=== PATIENT | male | born 1960 | race Caucasian/White ===

== ENCOUNTER → 2019-09-06 08:10 | Outpatient (BNVA) | payer MEDICAID, SELFPAY | PROVIDERS: Family Provider Nurse Practitioner Family; Visit Provider Nurse Practitioner | DX: F33.2 Major depressive disorder, recurrent severe without psychotic features (principal); F17.210 Nicotine dependence, cigarettes, uncomplicated; F12.20 Cannabis dependence, uncomplicated; F43.12 Post-traumatic stress disorder, chronic | CPT/HCPCS: 99213 ==

== ENCOUNTER → 2019-11-27 08:32 | Outpatient (BNVA) | payer MEDICAID, SELFPAY | PROVIDERS: Family Provider Nurse Practitioner Family; Visit Provider Nurse Practitioner | DX: F43.12 Post-traumatic stress disorder, chronic (principal); F33.2 Major depressive disorder, recurrent severe without psychotic features; F12.20 Cannabis dependence, uncomplicated; F17.210 Nicotine dependence, cigarettes, uncomplicated | CPT/HCPCS: 99213 ==

== ENCOUNTER → 2020-02-26 08:38 | Outpatient (BNVA) | payer MEDICAID, SELFPAY | PROVIDERS: Family Provider Nurse Practitioner Family; Visit Provider Nurse Practitioner | DX: F33.2 Major depressive disorder, recurrent severe without psychotic features (principal); F12.20 Cannabis dependence, uncomplicated; F43.12 Post-traumatic stress disorder, chronic; F17.210 Nicotine dependence, cigarettes, uncomplicated | CPT/HCPCS: 99214 ==

== ENCOUNTER 2020-03-04 13:10 | Outpatient (CLI) | payer MEDICAID, SELFPAY ==
--- NOTE | 2020-03-04 13:17 | XRR_ITS ---
PROCEDURE INFORMATION: Exam: XR Cervical Spine, 2 or 3 Views Exam date and time: 03/04/2020 1:35 PM Age: 59 years old Clinical indication: Cervicalgia and neck pain; Additional info: Chronic neck pain/cervicalgia TECHNIQUE: Imaging protocol: XR of the cervical spine, 2 or 3 views. COMPARISON: [place] [id number] 07/04/2018 1:14 PM FINDINGS: Vertebrae: No acute fracture. There is an anterior fusion plate from C4 through C7 as well as posterior fusion rods and pedicle screws. No evidence for hardware failure. Soft tissues: Unremarkable. XR/XR cervical spine 3V* [id number] IMPRESSION: There are no acute concerning abnormalities.
== END 2020-03-04 13:11 | disposition home or self-care (01) ==
LOC: RAD 13:13
PROVIDERS: PCP Nurse Practitioner Family; Visit Provider Nurse Practitioner Family
DX: M54.2 Cervicalgia (principal); G89.29 Other chronic pain
CPT/HCPCS: 72040

== ENCOUNTER 2020-03-13 22:47 | Emergency (ER) | payer MEDICAID, SELFPAY ==
[2020-03-13 22:49] VITALS: BP 152/99; PULSE 104; RESP 19; TEMP 36.7; O2SAT 96; BMI 27.1
--- NOTE | 2020-03-13 22:58 | XR_ITS ---
WS: [id number] EXAM: AP CHEST: PORTABLE UPRIGHT DATE OF EXAM: 03/13/2020, 2318 hours COMPARISON: Chest x-ray from 12/19/2015 HISTORY: Patient is 59 years old with cough and shortness of breath. FINDINGS: The cardiac silhouette is normal in size. The mediastinal contours are grossly abnormal. There is interval development of a soft tissue process in the left hilum. Most likely this represents a mass w ith underlying postobstructive pneumonitis. CT of the chest with IV contrast recommended.. The pulm onary vascularity is normal. Right lung is clear. Peripheral left lung is also clear. There is no e ffusion or pneumothorax. No acute bony abnormality is seen. Old postop fusion changes in the cervic al spine noted. XR/XR chest 1V portable [id number] IMPRESSION: Interval development of an abnormality involving the left hilum. Highly suspect underlying neoplasm with possible postobstructive pneumonia. CT of the chest w ith IV contrast recommended.
--- NOTE | 2020-03-13 22:58 | ECG_ITS ---
[facility] Test Date: 2020-03-13 Pat Name: Saman Orozco Department: Room: Gender: Male Prep Person: : 1960 Requested By: Radu Pineda Order Number: [id number] Terry MD: Marciano Aaron M.D. Measurements Intervals Watkins Rate: 96 P: 78 NV: 155 QRS: -54 QRSD: 84 T: 79 QT: 343 QTc: 434 Interpretive Statements SINUS RHYTHM POSSIBLE RIGHT ATRIAL ENLARGEMENT [0.25mV P WAVE] LEFT ANTERIOR FASCICULAR BLOCK [QRS AXIS <= -45, QR IN I, RS IN II] NONSPECIFIC T-WAVE ABNORMALITY Compared to ECG 12/19/2015 03:35:05 Left anterior fascicular block now present T-wave abnormality still present Electronically Signed On 03-15-2020 12:47:55 CDT by Marciano Aaron M.D. [id number] f
--- NOTE | 2020-03-13 22:59 | ED_ITS ---
HPI - SOB/Dyspnea General: Chief Complaint: Shortness of Breath/Dyspnea Stated Complaint: spitting up blood Time Seen by Provider: 03/13/20 22:57 History of Present Illness: HPI Narrative: Patient is a 59-year-old male who comes to the ED with hemoptysis and SOB. Patient has a past medical history of major depressive disorder, PTSD and hypertension. Patient is 1 pack/day tobacco smoker. Symptoms started today. Patient says he has a chronic cough from sm oking and that has remained unchanged. Today cough became productive and he noticed some blood in his sputum. Patient says he does have some shortness of breath that started today as well. He denies any chest pain, heart palpitations, fever, nausea/vomiting, bladder or bowel symptoms. Patient states he was told one time approximately 5 years ago that the chest x-ray showed potential pneumonia or cancer in his lungs. He was scheduled to do a biopsy and when they did imaging again before the biopsy mass in the lungs was gone. Patient denies any recent vomiting or trauma in the oral region to cause any blood in his sputum. Patient does have some chronic neck pain and states that he has had 2 surgeries on his neck in the last couple years. The coughing is aggravated his neck pain. He rates his neck pain an 8 out of 10. Associated symptoms: Deny abdominal pain, chest pain, fever(s), nausea, orthopnea, palpitations or vomiting Review of Systems Const: Denies: fever(s), chills or fatigue Eyes: Denies: change in vision or eye discomfort ENMT: Denies: throat pain, odynophagia, nasal discharge or nasal congestion Card: Denies: chest pain, palpitations, edema, swelling of feet/ankles, dyspnea on exertion or orthopnea Resp: Reports: dyspnea and productive cough (White sputum with red blood mixed.); Denies: non-productive cough GI: Denies: abdominal pain, nausea, vomiting, diarrhea, constipation or hematochezia : Denies: flank pain, difficulty urinating, dysuria or hematuria Musc: Denies: neck pain, back pain or extremity swelling Skin/Breast: Denies: rash or new lesions Neuro: Denies: headache(s), numbness in extremities or weakness in extremities [facility] ED PFSH: Medical History Cannabis dependence, uncomplicated Major depressive disorder, recurrent severe without psychotic features Nicotine dependence, cigarettes, uncomplicated Post-traumatic stress disorder, chronic Family History Father Hypertension Diabetes Mother Cancer Social History Smoking and tobacco status: current every day smoker cigarettes Packs smoked per day: 1 Smoking risk assessment/counseling performed?: Yes Tobacco counseling given: counseling >3 minutes Current gender identity: Male Physical Exam Const: COMMON NORMALS: no acute distress, patient oriented x3 and alert GENERAL APPEARANCE: cooperative HENMT: COMMON NORMALS: normocephalic HEAD & SCALP: normocephalic MOUTH: Normal oral and palatal mucosa present THROAT: posterior oropharynx normal and uvula midline Eye: COMMON NORMALS: Equal, round and reactive pupils present PUPIL: Yes Equal, round and reactive pupils present Neck/C-Spine: COMMON NORMALS: supple GENERAL: Yes normal visual inspection Resp: COMMON NORMALS: normal respiratory effort, No retractions and No use of accessory muscles EFFORT & INSPECTION: Yes able to speak in complete sente nces, No tachypneic, No labored and Yes Actively coughing productive AUSCULTATION: diminished lung sounds bilateral in the lower lung gomez Cardio: COMMON NORMALS: regular rate, regular rhythm, S1 normal heart sound present, S2 normal heart sound present, No gallops present (Cardio), No clicks present (Cardio), No murmurs present (Cardio) and Peripheral pulses 2+ throughout RATE: regular rate RHYTHM: regular rhythm HEART SOUNDS: S1 normal heart sound present and S2 normal heart sound present PERIPHERAL PULSES: Peripheral pulses 2+ throughout GI: COMMON NORMALS: Normal to inspection, nondistended, normoactive bowel sounds present, Soft to palpation, non-tender and no masses PALPATION: Yes Soft to palpation : COMMON NORMALS: Yes no CVA tenderness BLADDER/KIDNEY EXAM: Yes no CVA tenderness Back/Pelvis: COMMON NORMALS: no CVA tenderness Extremity: COMMON NORMALS: normal to inspection and no pedal edema Neuro: COMMON NORMALS: patient oriented x3 and moves all extremities SENSORIUM/ORIENTATION: Yes alert Skin: COMMON NORMALS: no rashes or lesions noted GENERAL SKIN EXAM: no rashes or lesions noted and dry skin Course Vital Signs: Vital signs: Vital Signs Temperature 98.0 F 03/13/20 22:49 Pulse Rate 95 03/14/20 01:45 Respiratory Rate 16 03/14/20 01:45 Blood Pressure 128/91 03/14/20 01:45 Pulse Oximetry 97 03/14/20 01:45 MDM - SOB/Dyspnea MDM Narrative: Medical decision making narrative: Patient is a 59-year-old male who comes to the ED with hemoptysis. Patient denies any chest pain or heart palpitations. EKG showed normal sinus rhythm with no ST segment elevation or depression seen. Troponin negative. White blood cell count 12.2 and the rest of CBC and CMP was unremarkable. D-dimer 1.63 chest x-ray showed a mass on the left midlung region. CTA of chest showed left middle lung mass likely primary pulmonary malignancy. While here in the ED patient is showing no signs of any respiratory distress. BP 128/91, pulse 95, respirations 16, temperature 98 ?F, O2 saturation 97% on room air. Patient was told about CT lung findings of cancer on the left lung. I placed an order with case management for patient to be referred to oncology for lung cancer. Patient was also recommended to follow-up with his primary care doctor in the next 3 to 5 days to discuss lung cancer findings. Return to ED precautions were given. Patient understood and agreed with plan. Lab Data: Attestation: I reviewed the patient's lab results. Labs: Lab Results 03/13/20 03/13/20 03/13/20 Range/Units 23:17 23:17 23:17 WBC 12.2 H (4.0-10.0) 10^3/ uL RBC 4.66 (4.1-5.3) 10^6/u L Hgb 13.1 (11.7-16.6) g/dL Hct 42.9 (42.0-52.0) % MCV 92.1 (80-94) fL MCH 28.1 (28.0-34.0) pg MCHC 30.5 (30.0-36.0) g/dL RDW 12.5 (12.1-15.1) % Plt Count 347 (130-400) 10^3/c mm MPV 10.7 H (7.4-10.4) fL Neut % (Auto) 75.5 % Lymph % (Auto) 15.8 % [place] % (Auto) 5.9 % Eos % (Auto) 1.9 % Baso % (Auto) 0.7 % Neut # (Auto) 9.23 H (1.8-7.7) 10^3/u L Lymph # (Auto) 1.9 (0.8-4.8) 10^3/u L [place] # (Auto) 0.7 (0.2-0.9) 10^3/u L Eos # (Auto) 0.2 (0.0-0.8) 10^3/u L Baso # (Auto) 0.1 (0.0-0.1) 10^3/u L Nucleated RBC % (a uto) 0 % Nucleated RBCs # 0.0 /100WBC D-Dimer (0-0.59) ug/mIFE U Sodium 136 (136-145) mmol/L Potassium 4.4 (3.5-5.1) mmol/L Chloride 99 (98-107) mmol/L Carbon Dioxide 28 (22-29) mmol/L Anion Gap 13.4 (5-19) BUN 10 (8-23) mg/dL Creatinine 1.0 (0.7-1.2) mg/dL GFR Calculation 76.0 L (90-130) mL/min Glucose 109 (65-115) mg/dL Calculated Osmolal ity 279 L (285-295) mOsm/k g Calcium 9.3 (8.5-10.5) mg/dL Total Bilirubin 0.2 (0.15-1.2) mg/dL AST 16 (0-40) U/L ALT 9 (0-41) U/L Alkaline Phosphata se 127 (40-130) IU/L Troponin T Baselin e 12 (0-15) ng/L Troponin T 120 Min [place] (0-15) ng/L Delta Troponin T (0-10) ABS# Total Protein 7.5 (6.6-8.7) g/dL Albumin 4.3 (3.5-5.2) g/dL Globulin 3.2 (1.3-4.6) g/dL 03/13/20 03/14/20 Range/Units 23:17 01:04 WBC (4.0-10.0) 10^3/ uL RBC (4.1-5.3) 10^6/u L Hgb (11.7-16.6) g/dL Hct (42.0-52.0) % MCV (80-94) fL MCH (28.0-34.0) pg MCHC (30.0-36.0) g/dL RDW (12.1-15.1) % Plt Count (130-400) 10^3/c mm MPV (7.4-10.4) fL Neut % (Auto) % Lymph % (Auto) % [place] % (Auto) % Eos % (Auto) % Baso % (Auto) % Neut # (Auto) (1.8-7.7) 10^3/u L Lymph # (Auto) (0.8-4.8) 10^3/u L [place] # (Auto) (0.2-0.9) 10^3/u L Eos # (Auto) (0.0-0.8) 10^3/u L Baso # (Auto) (0.0-0.1) 10^3/u L Nucleated RBC % (a uto) % Nucleated RBCs # /100WBC D-Dimer 1.63 H (0-0.59) ug/mIFE U Sodium (136-145) mmol/L Potassium (3.5-5.1) mmol/L Chloride (98-107) mmol/L Carbon Dioxide (22-29) mmol/L Anion Gap (5-19) BUN (8-23) mg/dL Creatinine (0.7-1.2) mg/dL GFR Calculation (90-130) mL/min Glucose (65-115) mg/dL Calculated Osmolal ity (285-295) mOsm/k g Calcium (8.5-10.5) mg/dL Total Bilirubin (0.15-1.2) mg/dL AST (0-40) U/L ALT (0-41) U/L Alkaline Phosphata se (40-130) IU/L Troponin T Baselin e (0-15) ng/L Troponin T 120 Min [place] 12.80 (0-15) ng/L Delta Troponin T 0.80 (0-10) ABS# Total Protein (6.6-8.7) g/dL Albumin (3.5-5.2) g/dL Globulin (1.3-4.6) g/dL Imaging Data^: CXR: Attestation: I personally reviewed and interpreted this imaging study as follows: My impression: Chest x-ray shows possible infiltrate or mass in the left mid lung. Pending final radiology report. CT Chest: Attestation: I personally reviewed and interpreted this imaging study as follows: Radiologist's impression: [address] [address] [address] Scan Report Signed Patient: Saman Orozco Unit #: [id number] : 1960 Age/Sex: 59 / M ADM Date: 03/13/20 Loc: ER Room/Bed: Attending Dr: Ordering Provider/Ordering MD: Jeimy Freire MD Date of Service: 03/13/20 Procedure(s): CT angio chest PE protcl [id number] Accession Number(s): [id number] Report Number: [id number] PROCEDURE INFORMATION: Exam: CT Angiography Chest With Contrast Exam date and time: 03/13/2020 11:52 PM Age: 59 years old Clinical indication: Shortness of breath and other: Coughing up blood; Additional info: SOB TECHNIQUE: Imaging protocol: Computed tomographic angiography of the chest with intravenous contrast. 3D rendering (Not supervised by radiologist): MIP and/or 3D reconstructed images were created by the technologist. Radiation optimization: All CT scans at this facility use at least one of these dose optimization techniques: automated exposure control; mA and/or kV adjustment per patient size (includes targeted exams where dose is matched to clinical indication); or iterative reconstruction. Contrast material: OMNI 350; Contrast volume: 95 ml; Contrast route: INTRAVENOUS (IV); COMPARISON: CT chest w con* [id number] 02/08/2015 3:26 PM RADIATION DOSE METRICS: Total DLP (mGy-cm): 658.9 FINDINGS: Pulmonary arteries: See Lungs finding. Aorta: Unremarkable. No aortic aneurysm. No aortic dissection. Lungs: There is a heterogeneous soft tissue attenuation irregular mass present medially within the left hemithorax that measures 5.9 cm transverse dimension by 12.1 cm AP dimension by 10.3 cm craniocaudal dimension compatible with a primary pulmonary malignancy. The mass is contiguous with the superior and middle mediastinal pleura and extends centrally surrounding and attenuating the left main pulmonary artery and branches of the left upper lobe pulmonary artery. The mass surrounds the proximal extent of the left lower lobe pulmonary artery as well. The mass attenuates and obstructs branches of the left upper lobe bronchus. The mass extends medially into the anterior mediastinum as well. There is some bronchial wall thickening seen within the lingula and some patchy opacities are seen within the lingula that may represent atelectasis although tumor extension cannot be excluded. There are small pulmonary nodularity seen within the left upper lobe as well, the largest measuring to 7.7 mm. Peripheral metastatic lesions cannot be excluded. Pleural space: Unremarkable. No pneumothorax. No pleural effusion. Heart: Unremarkable. No cardiomegaly. No pericardial effusion. Lymph nodes: Mildly prominent subcarinal mediastinal lymph nodes and right hilar lymph nodes are seen. Kidneys and ureters: There is a 1.9 x 2.5 cm hypoattenuation cystic lesions seen on the lower pole of the left kidney posteriorly compatible with a simple cyst. Bones/joints: Unremarkable. No acute fracture. Soft tissues: Unremarkable. CT/CT angio chest PE protcl [id number] IMPRESSION: 1. Large left upper lobe pulmonary mass extending into the anterior and superior mediastinum obstructing the left upper lobe bronchi and surrounding a attenuating the left main pulmonary artery and left upper lobe branches. This is a primary pulmonary malignancy less proven otherwise. 2. There are small pulmonary nodularities present in the left upper lobe, the largest measuring 7.7 mm. These are worrisome for metastatic lesions. 3. There are mildly prominent subcarinal and right hilar lymph nodes present that are below CT criteria for lymphadenopathy however. 4. Probable lingular atelectasis although tumor extension cannot be excluded. 5. Simple appearing left renal cyst measuring up to 2.5 cm. No further workup needed. COMMENTS: Consistent with the [employer]'s Incidental Findings Committee white paper (J Am Jhony Radiol 2018): Any incidental renal lesion less than 1.0 cm or classified as too small to characterize, or any incidental cystic renal lesion characterized as simple-appearing, is likely benign. No follow-up imaging is recommended for these lesions per consensus recommendations based on imaging criteria. Radiation Dose CTDIVOL = (mGy): DLP = 658.9 (mGy-cm) Dictated By: Tim Stephens MD Signed By: Tim tSephens MD Signed Date/Time: 03/14/20120 DD/ 9 EKG Data^: EKG 1: Attestation: I personally reviewed and interpreted this EKG as follows: EKG Interpretation Date: 03/13/20 Interpretation: Sinus rhythm, 96 bpm, no ST segment elevation or depression seen. Discharge Plan Discharge Patient Disposition: Home Clinical Impression: Lung cancer Qualifiers: Laterality: left Lung location: overlapping sites Qualified Code(s): C34.82 - Malignant neoplasm of overlapping sites of left bronchus and lung Condition: Stable Prescriptions: No Action lisinopril 10 mg tablet 10 mg PO DAILY RF: 0 aripiprazole [Abilify] 30 mg tablet 30 mg PO DAILY Qty: 30 RF: 2 benztropine 1 mg tablet 1 mg PO BID Qty: 60 RF: 2 paroxetine HCl [Paxil] 10 mg tablet 10 mg PO .HS Qty: 30 RF: 1 Discharge Orders: Discharge Order (Routine); Ordered 03/14/20 Ordered By: Radu Pineda Referrals: Dodie Hilton FNP [Primary Care Provider] - Discharge Diet: Regular Discharge Activity: Increase activity as tolerated Patient Instructions: Lung Cancer (ED), Acute Hemoptysis (ED) Activity Restrictions/Additional Instructions: Follow-up with medical provider as directed. Contact your primary care physician and set up an appointment with them in the next 3 to 5 days for reevaluation. Case management should be contacting you in the next several days to set up an appointment with oncology. Continue taking all home medications as prescribed. Return to the ER or your medical provider if condition worsens. Please read and understand discharge instructions. If any questions, please ask. Coding Level of Care Code ED Rehab Physician for Chg Fwd Exam Comprehensive
[2020-03-13 23:04] VITALS: BP 167/109; PULSE 98; RESP 18; O2SAT 95
[2020-03-13] MEDS: HYDROcodone-acetaminophen 7.5-325 mg Tablet 1 TAB PO (23:28)
--- NOTE | 2020-03-13 23:28 | CTR_ITS ---
PROCEDURE INFORMATION: Exam: CT Angiography Chest With Contrast Exam date and time: 03/13/2020 11:52 PM Age: 59 years old Clinical indication: Shortness of breath and other: Coughing up blood; Additional info: SOB TECHNIQUE: Imaging protocol: Computed tomographic angiography of the chest with intravenous contrast. 3D rendering (Not supervised by radiologist): MIP and/or 3D reconstructed images were created by the technologist. Radiation optimization: All CT scans at this facility use at least one of these dose optimization techniques: automated exposure control; mA and/or kV adjustment per patient size (includes targeted exams where dose is matched to clinical indication); or iterative reconstruction. Contrast material: OMNI 350; Contrast volume: 95 ml; Contrast route: INTRAVENOUS (IV); COMPARISON: CT chest w con* [id number] 02/08/2015 3:26 PM RADIATION DOSE METRICS: Total DLP (mGy-cm): 658.9 FINDINGS: Pulmonary arteries: See Lungs finding. Aorta: Unremarkable. No aortic aneurysm. No aortic dissection. Lungs: There is a heterogeneous soft tissue attenuation irregular mass present medially within the left hemithorax that measures 5.9 cm transverse dimension by 12.1 cm AP dimension by 10.3 cm craniocaudal dimension compatible with a primary pulmonary malignancy. The mass is contiguous with the superior and middle mediastinal pleura and extends centrally surrounding and attenuating the left main pulmonary artery and branches of the left upper lobe pulmonary artery. The mass surrounds the proximal extent of the left lower lobe pulmonary artery as well. The mass attenuates and obstructs branches of the left upper lobe bronchus. The mass extends medially into the anterior mediastinum as well. There is some bronchial wall thickening seen within the lingula and some patchy opacities are seen within the lingula that may represent atelectasis although tumor extension cannot be excluded. There are small pulmonary nodularity seen within the left upper lobe as well, the largest measuring to 7.7 mm. Peripheral metastatic lesions cannot be excluded. Pleural space: Unremarkable. No pneumothorax. No pleural effusion. Heart: Unremarkable. No cardiomegaly. No pericardial effusion. Lymph nodes: Mildly prominent subcarinal mediastinal lymph nodes and right hilar lymph nodes are seen. Kidneys and ureters: There is a 1.9 x 2.5 cm hypoattenuation cystic lesions seen on the lower pole of the left kidney posteriorly compatible with a simple cyst. Bones/joints: Unremarkable. No acute fracture. Soft tissues: Unremarkable. CT/CT angio chest PE protcl [id number] IMPRESSION: 1. Large left upper lobe pulmonary mass extending into the anterior and superior mediastinum obstructing the left upper lobe bronchi and surrounding a attenuating the left main pulmonary artery and left upper lobe branches. This is a primary pulmonary malignancy less proven otherwise. 2. There are small pulmonary nodularities present in the left upper lobe, the largest measuring 7.7 mm. These are worrisome for metastatic lesions. 3. There are mildly prominent subcarinal and right hilar lymph nodes present that are below CT criteria for lymphadenopathy however. 4. Probable lingular atelectasis although tumor extension cannot be excluded. 5. Simple appearing left renal cyst measuring up to 2.5 cm. No further workup needed. COMMENTS: Consistent with the [employer]'s Incidental Findings Committee white paper (J Am Jhony Radiol 2018): Any incidental renal lesion less than 1.0 cm or classified as too small to characterize, or any incidental cystic renal lesion characterized as simple-appearing, is likely benign. No follow-up imaging is recommended for these lesions per consensus recommendations based on imaging criteria. Radiation Dose CTDIVOL = (mGy): DLP = 658.9 (mGy-cm)
[2020-03-13 23:30] VITALS: PULSE 94; RESP 18; O2SAT 97
[2020-03-13] MEDS: ipratropium-albuterol 3 mL Neb 6 ML INHALATION (23:30)
[2020-03-13 23:40] VITALS: PULSE 97
[2020-03-13 23:52] VITALS: BP 158/101; PULSE 97; O2SAT 96
[2020-03-13 23:59] LABS: Basophils # 0.1 10^3/uL (0.0-0.1); Basophils % 0.7 %; Eosinophils # 0.2 10^3/uL (0.0-0.8); Eosinophils % 1.9 %; Hematocrit 42.9 % (42.0-52.0); Hemoglobin 13.1 g/dL (11.7-16.6); Lymphocytes # 1.9 10^3/uL (0.8-4.8); Lymphocytes % 15.8 %; Mean Corpuscular HGB Conc 30.5 g/dL (30.0-36.0); Mean Corpuscular Hemoglobin 28.1 pg (28.0-34.0); Mean Corpuscular Volume 92.1 fL (80-94); Mean Platelet Volume 10.7 fL (7.4-10.4); Monocytes # 0.7 10^3/uL (0.2-0.9); Monocytes % 5.9 %; Neutrophils # 9.23 10^3/uL (1.8-7.7); Neutrophils % 75.5 %; Nucleated Red Blood Cells % 0 %; Platelet Count 347 10^3/cmm (130-400); Red Blood Count 4.66 10^6/uL (4.1-5.3); Red Cell Distribution Width 12.5 % (12.1-15.1); White Blood Count 12.2 10^3/uL (4.0-10.0)
[2020-03-14 00:22] VITALS: BP 141/97; PULSE 98; RESP 17; O2SAT 96
[2020-03-14 00:23] LABS: D Dimer 1.63 ug/mIFEU (0-0.59)
[2020-03-14 00:30] LABS: Alanine Aminotransferase 9 U/L (0-41); Albumin Level 4.3 g/dL (3.5-5.2); Alkaline Phosphatase 127 IU/L (40-130); Anion Gap 13.4 (5-19); Aspartate Amino Transferase 16 U/L (0-40); Blood Urea Nitrogen 10 mg/dL (8-23); Calcium 9.3 mg/dL (8.5-10.5); Carbon Dioxide 28 mmol/L (22-29); Chloride 99 mmol/L (98-107); Globulin 3.2 g/dL (1.3-4.6); Glucose 109 mg/dL (65-115); Potassium 4.4 mmol/L (3.5-5.1); Sodium 136 mmol/L (136-145); Total Bilirubin 0.2 mg/dL (0.15-1.2); Total Protein 7.5 g/dL (6.6-8.7)
[2020-03-14 00:32] LABS: Troponin(5th) Baseline 12 ng/L (0-15)
--- NOTE | 2020-03-14 00:37 | PC.NURSE ---
PATIENT TO CT
[2020-03-14 00:39] LABS: Osmolality Calculated 279 mOsm/kg (285-295)
[2020-03-14] MEDS: iohexol 350 mg/mL 100 mL Btl IV (00:55)
[2020-03-14 01:25] VITALS: BP 151/91; PULSE 92; O2SAT 97
[2020-03-14 01:44] VITALS: RESP 17; O2SAT 96
[2020-03-14] MEDS: HYDROmorphone 1 mg/mL INJ 1 mL 0.5 MG IVP (01:44)
[2020-03-14 01:45] VITALS: BP 128/91; PULSE 95; RESP 16; O2SAT 97
[2020-03-14 02:22] VITALS: BP 160/106; PULSE 88; RESP 17; O2SAT 99
--- NOTE | 2020-03-14 08:18 | DCPLANNER ---
route manager had message to schedule a follow up appointment for patient with oncology. route manager called Kajal, social work coordinator with oncology, was told that patient would need to see Dr. Feliciano first. route manager called [facility], spoke with Roxanne, gave clinic patients information, was told that patients information would be printed and reviewed. Clinic will call patient with appointment information. route manager called patient and explained to patient that a referral had been made to oncology for patient, but that patient would need to be seen by Dr. Feliciano with [facility] for some pathologies to be completed on patient before patient could be seen.
--- NOTE | 2020-03-25 15:16 | DCPLANNER ---
Patient had a follow up appointment scheduled for 03.19.20 with [facility] - patient did attend the appointment.
== END 2020-03-14 02:22 | disposition home or self-care (01) ==
PROVIDERS: Emergency Provider Physician Assistant; PCP Nurse Practitioner Family
DX: C34.82 Malignant neoplasm of overlapping sites of left bronchus and lung (principal); F17.210 Nicotine dependence, cigarettes, uncomplicated
CPT/HCPCS: 12345; 71045; 71275; 80053; 84484; 85025; 85378; 87040; 87070; 87205; 93005; 94640; 96374; 96375; 99283; 99284; J1170; Q9967

== ENCOUNTER 2020-03-20 06:06 | Day surgery (SDC) | payer MEDICAID, SELFPAY ==
[2020-03-19 16:10] VITALS: BMI 26.4
[2020-03-20 06:38] VITALS: BP 137/103; PULSE 90; RESP 17; TEMP 36.3; O2SAT 97
[2020-03-20] MEDS: sodium chloride 0.9% 1,000 ML 30 ML IV (06:59)
[2020-03-20 07:30] VITALS: BMI 26.4
--- NOTE | 2020-03-20 07:52 | W.PM.OPSUD ---
Surgery/Procedure H&P Update DATE OF PROCEDURE: March 20, 2020 DATE H&P PERFORMED: 03/19/20 H&P UPDATE INFORMATION: I have reviewed H&P completed within last 30 days, I have examined patient prior to procedure and No changes to prior documentation PREOP DIAGNOSIS: Lung cancer PRIMARY INDICATION FOR PROCEDURE: Suspected lung cancer PLANNED PROCEDURE: Bronchoscopy inspection of the airway, possible endobronchial biopsy, bronchoalveolar lavage, endobronchial sound guided transbronchial aspiration of lymph nodes and control of bleeding Operation Date: 03/20/20 08:00 Proposed Procedures p Ebus(Not Applicable) - Alvaro Felicinao MD
--- NOTE | 2020-03-20 07:52 | ANES.PREANE2 ---
Pre-Anesthetic Assessment Pre-Anesthetic Assessment: Height/Weight: Height 1.63 m Weight 69.853 kg Temp Pulse Resp BP Pulse Ox 97.3 F L 90 17 137/103 97 03/20/20 06:38 03/20/20 06:38 03/20/20 06:38 03/20/20 06:38 03/20/20 06:38 Preop Diagnosis: Lung cancer Proposed Procedure: Operation Date: 03/20/20 08:00 Proposed Procedures p Ebus(Not Applicable) - Alvaro Feliciano MD Familial anesthetic complications: nonoe Was Beta Tawnya taken within 24 hours: N/A Last intake: Intake Last Liquid Date 03/19/20 Last Liquid Time 23:00 Last Solid Date 03/19/20 Last Solid Time 23:00 Social: Social History: Tobacco Exam: Pre-Anes Outpt Exam: alert, oriented x 3, clear to auscultation bilaterally and regular rate & rhythm Airway: Cervical ROM: Other (limited extension d/t plates) MP: 4 Dentition: Full Pulmonary: Pulmonary: COPD Comments: Lung cancer CV/HEM: CV/HEM: HTN Neuropsych: Neuropsych: None reported Anesthetic Plan: ASA status: 4 Anesthesia: General Risk of > 500 ml blood loss (7ml/kg in children): No Meds/Allergies Current Medications: Current Medications Generic Name Dose Route Start Last Admin Trade Name Freq PRN Reason Stop Dose Admin Sodium Chloride 1,000 mls @ 30 ml s/hr 03/20/20 06:30 03/20/20 06:59 Sodium Chloride 0.9% IV 03/21/20 06:29 30 mls/hr .Q24H CHARLIE Administration PFSH Anesthesia PFSH: Medical History (Updated 03/19/20 @ 09:31 by Alvaro Feliciano MD) Cannabis dependence, uncomplicated Major depressive disorder, recurrent severe without psychotic features Nicotine dependence, cigarettes, uncomplicated Post-traumatic stress disorder, chronic Family History Father Hypertension Diabetes Mother Cancer Social History Smoking and tobacco status: current every day smoker cigarettes Packs smoked per day: 1 Years cigarettes smoked: 50 Quit status (tobacco): considering quitting Second hand smoke exposure: Yes Smoking risk assessment/counseling performed?: Yes Tobacco counseling given: counseling >3 minutes Alcohol intake: never Lives independently: Yes Household members: significant other Marital status: Current occupational status: retired and disabled History of recent travel: No Current gender identity: Male Data Anesthesia Cardiac Studies: No Data to Display
[2020-03-20] MEDS: lidocaine 1% INJ 20 mL XX (08:15)
[2020-03-20] MEDS: EPINEPHrine 1 mg/mL INJ XX (08:44)
--- NOTE | 2020-03-20 09:06 | PM.OP ---
Operative Report Date of procedure: March 20, 2020 Pre-op Diagnosis: Lung cancer Post-op diagnosis: same Brief History: This is a 59-year-old gentleman with new onset hemoptysis and left mediastinal mass coming in for bronchoscopic evaluation for suspected lung cancer. Procedure: Name of the procedure: Bronchoscopy with inspection of the airway, bronchoalveolar lavage, endobronchial biopsies, bronchial brush, endobronchial ultrasound-guided transbronchial needle aspiration of lymph nodes and control of bleeding. Indication: Suspected lung cancer Anesthesia: General anesthesia. Local anesthesia: The rashad in the right and left mainstem bronchi were anesthetized with 1% lidocaine, 3 mL. Description of the procedure: The procedure was explained to the patient and the consent was obtained. The patient was brought to the OR. The patient underwent endotracheal intubation for general anesthesia. Following induction of general anesthesia, the bronchoscope was advanced through the ET tube. The lower trachea appeared to be normal. The rashad was sharp. The rashad, the right and left mainstem bronchi are anesthetized with 1% lidocaine. In a systematic manner bilateral bronchial tree was then examined. The bronchoscope was advanced into the left mainstem bronchus. There was erythema in the left mainstem bronchus. The left upper lobe bronchus was completely occluded by an infiltrating mass. The bronchoscope could not be passed beyond this mass. The left lower lobe bronchi were examined and no abnormalities were identified. The bronchoscope was then introduced into the right mainstem bronchus. The right upper lobe, right middle lobe and right lower lobe bronchi were examined up to the third subsegmental level and no abnormalities were identified. Endobronchial biopsies were obtained from left upper lobe bronchus. 4 samples were obtained. Cytobrush was performed in the same affected area. Bronchoalveolar lavage was performed from left upper lobe. 60 cc of saline was instilled fluid return was 10 mL. The endobronchial ultrasound was introduced through the ET tube. Mediastinal and hilar lymphadenopathy was identified predominantly on the left side. The left hilar mass was seen to compress the left pulmonary artery. Fine-needle aspirations were performed from station 7 and left hilar mass. The bronchoscope was reintroduced. There was no active bleeding. Samples: 1. Bronchoalveolar lavage specimen was sent for cytology. 2. The endobronchial biopsies are sent for histopathology. 3. The fine-needle aspiration from station 7 and left hilar mass were sent for histopathology. 4. The fine-needle aspiration from station 7 and the left hilar mass are sent for cytology. Complications: There was no immediate complications. The patient was extubated and brought to the PACU in stable condition.
--- NOTE | 2020-03-20 09:09 | SUR.OPER ---
EBUS BALLOON REMOVED INTACT
[2020-03-20 09:16] VITALS: BP 131/104; PULSE 100; RESP 20; TEMP 36.5; O2SAT 98
[2020-03-20 09:20] VITALS: BP 125/78; PULSE 99; RESP 25; O2SAT 99
[2020-03-20 09:25] VITALS: BP 127/81; PULSE 97; RESP 20; TEMP 36.5; O2SAT 99
--- NOTE | 2020-03-20 09:25 | PTH.EBUS ---
Endobronchial Ultrasound Speicmen(s): Hilar lymph node Gross: Pass 1 on scant tissue fragments measuring 1 x 0.4 x 0.3 cm Preliminary Impression: Atypical clusters - Specimen Information Pathologist: Shona Celaya Date: 03/20/20 Time Received: 08:20 Time Reported: 08:35 Pathology Specimen Reported to: Dr. Alvaro Feliciano Specimen reported at what time: 08:35
[2020-03-20 09:29] VITALS: BP 124/87; PULSE 90; RESP 17; TEMP 36.8; O2SAT 94
[2020-03-20 10:08] VITALS: BP 127/92; PULSE 90; RESP 17; TEMP 36.8; O2SAT 94
== END 2020-03-20 10:10 | disposition home or self-care (01) ==
PROVIDERS: PCP Nurse Practitioner Family; Visit Provider Internal Medicine Critical Care Medicine
PROC: BB4BZZZ Ultrasonography of Pleura (ICD-10-PCS; CPT 31624; principal; 2020-03-20 08:00)
DX: C34.12 Malignant neoplasm of upper lobe, left bronchus or lung (principal); R59.1 Generalized enlarged lymph nodes; I10 Essential (primary) hypertension; J44.9 Chronic obstructive pulmonary disease, unspecified; F17.210 Nicotine dependence, cigarettes, uncomplicated; Z88.2 Allergy status to sulfonamides
CPT/HCPCS: 31624; 31652; 12345; 31625; 31627; 80500; 88112; 88173; 88305; J0171; J1100; J2250; J2405; J2704; J2710; J2765; J3490; J7030

== ENCOUNTER → 2020-03-27 09:39 | Outpatient (BNVA) | payer MEDICAID, SELFPAY | PROVIDERS: PCP Nurse Practitioner Family; Visit Provider Nurse Practitioner | DX: F33.2 Major depressive disorder, recurrent severe without psychotic features (principal); F12.20 Cannabis dependence, uncomplicated; F43.12 Post-traumatic stress disorder, chronic; F17.210 Nicotine dependence, cigarettes, uncomplicated; F41.1 Generalized anxiety disorder | CPT/HCPCS: 99213 ==

== ENCOUNTER 2020-04-09 05:41 | Day surgery (SDC) | payer MEDICAID, SELFPAY ==
[2020-04-08 10:41] VITALS: BMI 25.9
--- NOTE | 2020-04-09 | SCC_ITS ---
Procedure Done: Placement of PowerPort in the right subclavian vein 105.8 seconds of fluoroscopic guidance, for a cumulative dose of 13.08 mGy, was provided to Dr. Cooper by the radiology department. C-arm images of the chest were saved for the patient's permanent record. [facility]
[2020-04-09 06:20] VITALS: BP 163/103; PULSE 95; RESP 18; TEMP 36.7; O2SAT 95
--- NOTE | 2020-04-09 06:33 | ANES.PREANE2 ---
Pre-Anesthetic Assessment Pre-Anesthetic Assessment: Height/Weight: Height 1.63 m Weight 68.492 kg Preop Diagnosis: Lung cancer Proposed Procedure: Operation Date: 04/09/20 07:00 Proposed Procedures p Portacath Placement 57471 C34.90(Not Applicable) - Liban Cooper MD Familial anesthetic complications: None Was Beta Tawnya taken within 24 hours: N/A Last intake: NPO > 8 hrs Social: Social History: Tobacco Comment: marijuana Exam: Pre-Anes Outpt Exam: alert, oriented x 3, clear to auscultation bilaterally and regular rate & rhythm Additional Exam Findings (including area of procedure): diminished Airway: Cervical ROM: WNL (limited extension d/t plates) MP: 4 Dentition: Full Pulmonary: Pulmonary: COPD Comments: small cell lung CA CV/HEM: CV/HEM: HTN Anesthetic Plan: ASA status: 4 Anesthesia: MAC Risk of > 500 ml blood loss (7ml/kg in children): No PFSH Anesthesia PFSH: Medical History (Updated 04/06/20 @ 08:24 by Liban Cooper MD) Major depressive disorder, recurrent severe without psychotic features Post-traumatic stress disorder, chronic Small cell lung cancer Surgical History H/O neck surgery History of bronchoscopy Hx of tonsillectomy Family History Father Hypertension Diabetes Mother Cancer Social History Smoking and tobacco status: former smoker Quit status (tobacco): has quit using tobacco Year quit tobacco: [id number] Second hand smoke exposure: Yes Smoking risk assessment/counseling performed?: Yes Tobacco counseling given: counseling >3 minutes Alcohol intake: never Lives independently: Yes Household members: significant other Marital status: Current occupational status: retired and disabled History of recent travel: No Current gender identity: Male Data Anesthesia Cardiac Studies: No Data to Display
--- NOTE | 2020-04-09 06:48 | W.PM.OPSUD ---
Surgery/Procedure H&P Update DATE OF PROCEDURE: April 09, 2020 DATE H&P PERFORMED: 04/04/20 H&P UPDATE INFORMATION: I have reviewed H&P completed within last 30 days, I have examined patient prior to procedure and No changes to prior documentation PREOP DIAGNOSIS: Lung cancer PLANNED PROCEDURE: Operation Date: 04/09/20 07:00 Proposed Procedures p Portacath Placement 40456 C34.90(Not Applicable) - Liban Cooper MD
--- NOTE | 2020-04-09 06:53 | SC_ITS ---
WS: [id number] EXAM: FLUOROSCOPY FOR VISUALIZATION DURING CENTRAL VASCULAR ACCESS DATE OF EXAMINATION: 04/09/2020, 0748 hours COMPARISON: None. HISTORY: Patient is 59 years old with need for long-term central vascular access. FLUOROSCOPY TIME: 105.8 seconds FINDINGS: Fluoroscopy provided to the surgical service for visualization during vascular access. Single spot im ages shows a right subclavian Port-A-Cath in place with the catheter ending in the SVC region. Please see operative report for further details. Dedicated post procedure imaging recommended. SC/C-arm FL for CVA [id number] IMPRESSION: Fluoroscopy provided to the surgical service for visualization during right sub clavian Port-A-Cath placement.
[2020-04-09 06:57] LABS: Basophils # 0.1 10^3/uL (0.0-0.1); Basophils % 0.5 %; Eosinophils # 0.3 10^3/uL (0.0-0.8); Eosinophils % 1.6 %; Hematocrit 38.9 % (42.0-52.0); Hemoglobin 11.9 g/dL (11.7-16.6); Lymphocytes # 1.6 10^3/uL (0.8-4.8); Lymphocytes % 10.3 %; Mean Corpuscular HGB Conc 30.6 g/dL (30.0-36.0); Mean Corpuscular Hemoglobin 28.1 pg (28.0-34.0); Mean Corpuscular Volume 91.7 fL (80-94); Mean Platelet Volume 9.6 fL (7.4-10.4); Monocytes # 0.8 10^3/uL (0.2-0.9); Monocytes % 5.1 %; Neutrophils # 12.49 10^3/uL (1.8-7.7); Neutrophils % 82.3 %; Nucleated Red Blood Cells % 0 %; Platelet Count 354 10^3/cmm (130-400); Red Blood Count 4.24 10^6/uL (4.1-5.3); Red Cell Distribution Width 12.6 % (12.1-15.1); White Blood Count 15.2 10^3/uL (4.0-10.0)
[2020-04-09] MEDS: magnesium sulfate premix 2 GM/50 ML PIGGYBACK IV ×2 (07:06→08:02)
[2020-04-09] MEDS: sodium chlor 0.9% + KCl 20 mEq 20 MEQ/1,000 ML BAG 999 MEQ IV ×2 (07:06→08:40)
[2020-04-09] MEDS: sodium chloride 0.9% 1,000 ML 30 ML IV (07:06)
[2020-04-09 07:17] LABS: Alanine Aminotransferase 12 U/L (0-41); Albumin Level 3.8 g/dL (3.5-5.2); Alkaline Phosphatase 129 IU/L (40-130); Anion Gap 14.3 (5-19); Aspartate Amino Transferase 14 U/L (0-40); Blood Urea Nitrogen 5 mg/dL (8-23); Calcium 9.1 mg/dL (8.5-10.5); Carbon Dioxide 30 mmol/L (22-29); Chloride 98 mmol/L (98-107); Globulin 3.7 g/dL (1.3-4.6); Glomerular Filtration Rate 85.8 mL/min (90-130); Glucose 105 mg/dL (65-115); Osmolality Calculated 282 mOsm/kg (285-295); Potassium 4.3 mmol/L (3.5-5.1); Sodium 138 mmol/L (136-145); Total Bilirubin 0.2 mg/dL (0.15-1.2); Total Protein 7.5 g/dL (6.6-8.7)
[2020-04-09] MEDS: lidocaine 1% INJ 20 mL SUBCUT (07:25)
[2020-04-09] MEDS: heparin, porcine 1,000 unit/mL INJ 10 mL 10000 UNIT INJECTION (07:29)
--- NOTE | 2020-04-09 07:52 | PM.OP ---
Operative Report Date of procedure: April 09, 2020 Pre-op Diagnosis: Lung cancer Post-op diagnosis: same Procedure Done: Placement of PowerPort in the right subclavian vein Fluoroscopic guidance and interpretation for placement of catheter Pathology: none sent Surgeon: Liban Cooper Anesthesia: MAC Condition: stable Disposition: same day Procedure: The patient was taken to the Operating Room and the chest and neck bilaterally were prepped and draped in a sterile manner after the antibiotic had been administered and shoulder rolls had been placed. A total of 10 mL of 1% lidocaine with 0.5% Marcaine was infiltrated under the clavicle on the right side at the site of the planned entry into the subclavian vein. An introducer needle was then used to access the subclavian vein under the clavicle and after withdrawing blood syringe was removed and a guidewire passed under fluoroscopy into the superior vena cava. The site of the planned port was then marked on the chest and a 15 blade was used to make a 3 cm skin incision this was extended into the subcutaneous tissue using electrocautery and a subcutaneous pocket over the pectoralis fascia was created 2-0 Vicryl suture was used to suture the port to the pectoral fascia in the pocket on 3 sides. The catheter, after having been flushed with hep saline, was attached to the tunneler and a tunnel created between the port site and the subclavian vein entry site. Under fluoroscopy the dilator sheath was passed over the guidewire into the proximal superior vena cava. The inner dilator was removed and the sheath left behind and~ the catheter was introduced through the peel-away sheath with the tip in the superior vena cava. The peel-away sheath was removed. The proximal end of the catheter was cut to the right size and was attached to the port. Using a Lakhani needle the port was accessed, it withdrew blood easily and flushed easily. A final 5cc of heparin was used to flush the PowerPort. The subcutaneous tissue was approximated using interrupted 3-0 Vicryl sutures and the skin at the introducer site and the port site was closed using subcuticular running 4-0 Monocryl sutures. Surgical glue was applied and the patient was stable throughout the procedure. Fluoroscopic guidance and interpretation was performed for introduction of the guidewire in the right subclavian vein, passage of dilator and placement of catheter tip in the distal superior vena cava.
[2020-04-09 08:20] VITALS: BP 130/85; PULSE 93; RESP 20; TEMP 36.2; O2SAT 97
--- NOTE | 2020-04-09 08:24 | ANE.PACU2 ---
Inpatient post-anesthesia follow up: Airway intact: Yes Vital signs: Temperature 98.1 F Pulse Rate 95 Respiratory Rate 18 Blood Pressure 163/103 Pulse Oximetry 95 Oxygen Delivery Me thod Room Air Oxygen Flow Rate Fraction of Inspir ed Oxygen Hydration adequate: Yes Nausea and vomiting: No Pain level: 2 Mental status: Baseline
[2020-04-09] MEDS: HYDROcodone-acetaminophen 5-325 mg Tablet 1 TAB PO (08:45)
== END 2020-04-09 09:55 | disposition home or self-care (01) ==
PROVIDERS: PCP Nurse Practitioner Family; Visit Provider Surgery
PROC: (CPT 36561; principal; 2020-04-09 07:00)
DX: C34.92 Malignant neoplasm of unspecified part of left bronchus or lung (principal); J44.9 Chronic obstructive pulmonary disease, unspecified; Z87.891 Personal history of nicotine dependence; Z88.2 Allergy status to sulfonamides
CPT/HCPCS: 36561; 12345; 36415; 76000; 77001; 80053; 85025; 96365; C1788; J0690; J1644; J2250; J2704; J3475; J3490; J7030

== ENCOUNTER 2020-04-23 05:35 | Outpatient (RCR) | payer MEDICAID, SELFPAY ==
--- NOTE | 2020-04-04 16:09 | ONC CON_ITS ---
Dr. Acevedo New Patient Note Patient: Saman Orozco Unit #: [id number]: [id number] Dicatated By: Rancho Acevedo M.D.Date of Visit: Apr 04, 2020 Onc MED New Patient/Consult Referring Physician: Dr. RAYMOND FELICIANO M.D. Chief Complaint: Lung cancer. History of Present Illness: This is a 59 year-old man with newly diagnosed small cell lung cancer. On 03/13/2020 he had presented to the emergency room with shortness of breath and hemoptysis. His CT pulmonary angiogram showed a large mass in the left upper lobe which was noted to extend into the anterior and superior mediastinum with obstruction of the left upper lobe bronchi. It was noted to surround the left main pulmonary artery and left upper lobe branches. There were additional small pulmonary nodules in the left upper lobe, the largest measuring 7.7 mm, worrisome for metastatic lesions. There were mildly prominent subcarinal and right hilar lymph nodes, below CT criteria for lymphadenopathy. There was no other obvious metastatic disease. He was seen by Dr. Feliciano on 03/19/2020 and bronchoscopy/EBUS the following day showed complete obstruction of the left upper lobe bronchus by an infiltrating mass. EBUS demonstrated mediastinal and hilar lymphadenopathy, predominantly on the left side. Endobronchial biopsies were obtained from the left upper lobe and transbronchial FNA biopsies were obtained from station 7 and left hilar lymph nodes. The endobronchial biopsy and left hilar lymph node biopsy were positive for small cell carcinoma. The FNAs were insufficient for diagnosis. Staging PET/CT on 03/22/2020 showed FDG avid left upper perihilar mass measuring 11.1 x 6.0 x 7.8 cm with SUV 16.8. There was invasion into the adjacent mediastinum. An 8 mm left apical soft tissue nodule was FDG negative. There were FDG avid mediastinal lymph nodes in the subcarinal and right paratracheal areas, maximum SUV 5.6 in the subcarinal node. There was some questionable uptake in the pancreatic tail. There was otherwise no evidence for metastatic disease outside the chest. He is seen now for further management. He complains that he has no energy, though he is still able to do some light work. He is short of breath with any activity, and he complains that he has been coughing his fool head off. He is bringing up white sputum. He has had no further hemoptysis, and he does not complain of chest pain. His appetite is poor. His weight is down about 5 pounds. He has not had fever. He does have some night sweating. He currently has no GI or complaints. He does have pain in the neck area, particularly on the left side, which is chronic. He sometimes has headache. He is lightheaded if he gets up too fast. He has no focal neurologic symptoms. Past Medical History: His medical history includes chronic obstructive pulmonary disease, degenerative disease of the spine, depression, hypertension, and post traumatic stress disorder. Past Surgical History: He underwent bronchoscopy with endobronchial biopsy and with EBUS/transbronchial FNA lymph node biopsies on 03/20/2020. His other surgical/procedural history includes cervical spine surgery x 2 which included cervical fusion and tonsillectomy. Medications: ARIPiprazole (sensor) 1 Tablet (of 30 mg) Oral daily, Bevespi Aerosphere 2 Puff(s) (of 9-4.8 mcg/act) Aerosol Inhalation PRN, Lisinopril 1 Tablet (of 20 mg) Oral daily, PARoxetine HCl 1 Tablet (of 10 mg) Oral at bedtime, Ventolin HFA 2 Puff(s) (of 108 (90 base) mcg/act) Aerosol, solution Inhalation b.i.d. Allergies: Bactrim DS, fentaNYL, and Sulfa Antibiotics. Social History: Mr. Orozco is . He has a history of smoking 2 packs of cigarettes daily for approximately 50 years. He quit smoking 1 week ago. He had some alcohol use when he was younger. He quit drinking in 2003. His medical records indicate that he has had some substance abuse. Family History: Father had Hodgkin's lymphoma and dementia. He at age 71. Mother with brain cancer at age 68. A sister age 64, apparently of COPD and congestive heart failure. Two other sisters are in good health. Review Of Symptoms: Constitutional - He complains that he has no energy, but he is still able to do some light work. His appetite is poor. His weight is down about 5 pounds. He has not had fever. He does report having night sweating. ECOG score is 1, Eyes - No change in vision, ENMT - No hearing loss. He has tinnitus. He has sinus congestion/drainage. No mouth sores. He has pain on the left side of his throat/neck. No difficulty swallowing, Hematologic/Lymphatic - He has some bruising, Respiratory - He has shortness of breath. He has cough productive of white sputum. No pleuritic pain. No further hemoptysis, Cardiovascular - No angina pain. No palpitations, Gastrointestinal - No nausea or vomiting. No heartburn or acid reflux. No diarrhea or constipation. No blood in the stool or black stools, Genitourinary (M) - No dysuria or hematuria. No urinary frequency. No urgency or incontinence, Musculoskeletal - He has chronic neck pain. No other joint or bone pain, Integumentary - No skin rash, Neurologic - He sometimes has headache. He has lightheadedness if he gets up too fast. No numbness or tingling. No other focal neurologic symptoms, Psychiatric - He has chronic depression. He has having difficulty sleeping. Vital Signs: Performed on Apr 04, 2020 08:52: 8, 26.50, 1.75 sq.m, 64 in, 95 % (LOW), 112 /min (HIGH), 16 /min, 166/99 mm(hg) (HIGH), 99.4 F (HIGH), and 154.4 lbs (HIGH). Physical Examination: Constitutional - He appears somewhat weak generally, but not acutely ill, Eyes - Sclerae nonicteric. Conjunctivae clear, ENMT - No lesions noted in the oral cavity, Neck - No mass or thyromegaly, Hematologic/Lymphatic - No cervical, clavicular, or axillary adenopathy, Respiratory - Lungs show slightly coarse breath sounds but with fairly good air movement bilaterally, Cardiovascular - Heart rhythm is regular. There is no murmur, gallop, or rub noted, Abdomen - Mildly distended but soft. Liver and spleen are not enlarged. There is no abdominal mass or ascites noted and there is no inguinal adenopathy, Back/Spine - No spine or CVA tenderness noted, Extremities - No edema. Dorsalis pedis pulses are palpable bilaterally, Integumentary - No rashes. No suspicious skin lesions noted, Neurologic - No focal neurologic deficits noted. Impression: 1. Patient with newly diagnosed small cell carcinoma involving the upper lobe of the left lung. There is associated left upper lobe bronchial occlusion. By clinical evaluation his disease appears to be TNM stage IIIC (T4, N3, M0), and potentially limited stage for treatment purposes. 2. He underwent bronchoscopy/EBUS on 03/20/2020. His other medical illnesses include: 3. Hypertension. 4. COPD. 5. Degenerative disease of the cervical spine. 6. Posttraumatic stress disorder and depression. Plan: The CT and PET/CT findings and the pathology results were reviewed with the patient. We also reviewed the CT images, and we discussed the clinical implications. He has small cell lung cancer involving the upper lobe of the left lung. It is a very large primary tumor with associated left upper lobe bronchial obstruction. There is likely mediastinal lymph node involvement, but his disease thus far does appear to be confined to the chest and it is potentially limited stage for treatment purposes. He does need to complete staging with brain MRI. However, given the extent of his disease and his symptoms, I do want to get treatment started soon as possible. As he has very poor peripheral venous access, he is going to require placement of Port-A-Cath venous access device prior to initiation of chemotherapy. I have contacted Dr. Cooper who has kindly agreed to see him today and arrange for port placement on Tuesday. I will tentatively plan then to start chemotherapy with cisplatin/etoposide on Tuesday. I will arrange for radiation oncology consultation for either Tuesday or Tuesday, depending on his surgery schedule. I did review anticipated side effects with the chemotherapy which may include nausea/vomiting, alopecia, fatigue, low blood counts, and neuropathy, among others. He indicates that he is agreeable to proceeding with treatment as outlined above. Signed By: Rancho Acevedo M.D. <<Signature on File>>
[2020-04-09] MEDS: sodium chloride 0.9% 250 ML 75 ML IV (10:30)
[2020-04-09 10:32] VITALS: RESP 18; O2SAT 98
[2020-04-09] MEDS: morphine 4 mg/mL SDV 1 mL IV (10:32)
--- NOTE | 2020-04-09 10:53 | N.ONRAD NP_ITS ---
Radiation Oncology New Patient Visit Patient: Saman Orozco MR#: [id number] : 1960> Age: 59> Sex: Male> Dictated by: Dr. Iker Moreno Date of Service: 04/07/2020 Referring Physician(s) : Diagnosis: C34.12 - malignant neoplasm of upper lobe, left bronchus or lung, Diagnosed 04/04/2020 (active), stage iiic, t4, n3, m0. Limited stage versus extensive stage small cell lung carcinoma originating in the left upper lobe of the lung. Given the disease bulk with contiguous mediastinal pleural involvement measuring approximately 12 x 10 cm, coupled with likely 4R lymph node involvement (Bx of level 7 LN was negative), it was concluded that definitive concurrent chemoradiation therapy at this point ???might??? exceed radiation therapy tolerance to normal lung. Thus it was concluded that the patient might best benefit from 1 or 2 courses of initial systemic therapy, followed by definitive concurrent chemoradiation therapy. MRI of the brain is pending to complete staging. Radiotherapy to date: Summary > No prior radiation therapy. Chief Complaint / History of Present Illness: The patient is a 59-year-old male with a prior history of smoking who presented to the emergency room with progressive shortness of breath and blood-tinged sputum. A chest x-ray (03/13/2020) revealed a soft tissue process in the left hilum concerning for a mass with underlying postobstructive pneumonitis. A subsequent CT angiogram of the chest (03/14/2020 versus 02/08/2015) revealed a 12.1 x 5.9 x 10.3 cm heterogeneous soft tissue mass within the left hemithorax. The mass is contiguous with the superior and middle mediastinal pleura, and extends centrally surrounding the left main pulmonary artery, branches of the left upper lobe pulmonary artery, and left lower lobe pulmonary artery. The mass obstructs branches of the left upper lobe bronchus, and extends medially into the anterior mediastinum. Bronchial wall thickening and patchy opacities were seen within the lingual which was concerning for atelectasis versus tumor extension. There were also small pulmonary nodules observed within the left upper lobe, largest measuring 7.7 mm, and the reading radiologist commented that peripheral metastatic lesions cannot be excluded. On 03/20/2020, the patient underwent bronchoscopy and biopsy. According to the operative note, the left upper lobe bronchus was completely occluded by an infiltrating mass. The bronchoscope could not be passed beyond this mass. No abnormalities were appreciated in the left lower lobe bronchi. No abnormalities were appreciated within the right upper lobe, right middle lobe, or right lower lobe bronchi. A PET/CT (03/22/2020) revealed significant FDG avidity within an 11.1 x 6 x 7.8 cm left upper perihilar mass invading into the adjacent mediastinum. An 8 mm left lung apex soft tissue nodule was FDG negative. However, FDG avidity was seen in mediastinal lymph nodes consistent with local metastatic disease within the subcarinal, and 4R lymph node stations. The subcarinal lymph node measured 1.9 x 2.1 cm. Pathology from endobronchial biopsies of the left upper lobe mass revealed small cell lung carcinoma. Biopsy of the left hilar lymph node revealed atypical clusters most consistent with small cell carcinoma, and biopsy of lymph node station 7 revealed reactive lymphoid hyperplasia. The patient is seen in consultation today. He reports persistent blood flecked sputum, shortness of breath, and he reports that he recently stopped smoking. Current Medications: ARIPiprazole (sensor), bevespi Aerosphere, hYDROcodone-Acetaminophen, lisinopril, lORazepam, pARoxetine HCl, prochlorperazine Maleate, ventolin HFA. Allergies: fentaNYL, Sulfa Antibiotics and Bactrim DS. Medical History: - Chronic obstructive pulmonary disease, - degenerative disease of the spine, - depression, - hypertension, - post traumatic stress disorder. No history of collagen vascular disease. No previous radiation therapy. Surgical History: Bronchoscopy with endobronchial biopsy and with EBUS/transbronchial FNA lymph node biopsies on 03/20/2020, cervical spine surgery x 2 which included cervical fusion and tonsillectomy. Family History: Father had Hodgkin's lymphoma and dementia. He at age 71. Mother with brain cancer at age 68. A sister age 64, apparently of COPD and congestive heart failure. Two other sisters are in good health. Social History: Last screened on 04/04/2020 - Current every day smoker 1.0 pack/day for 50 years (50 pack years). Last screened on 04/04/2020 - Never drank. Patient indicated use of the following products: cigarettes and recreational drug use. Current Complaints / Review of Systems: Constitutional - Complains of a poor appetite. Complains of severe fatigue. Complains of change in weight has lost about 14 lbs. in the past 2 months. Denies fever and night sweats. Eyes - Denies blurred vision and double vision. ENMT - Denies dysphagia, ear pain, mouth dryness, stomatitis and altered taste. Neck - Complains of neck pain which is chronic. Integumentary - Denies rash. Cardiovascular - Complains of chest pain in the anterior left chest wall and happens after coughing. Denies arrhythmias and edema. Respiratory - Complains of a severe cough. Complains of moderate dyspnea associated with normal activity. Complains of hemoptysis that is streaky. Complains of mild wheezing. Gastrointestinal - Denies abdominal pain, constipation, diarrhea, heartburn / dyspepsia, nausea and vomiting. Genitourinary (M) - Denies dysuria, frequency and urgency. Musculoskeletal - Denies bone pain, joint pain and muscle weakness. Neurologic - Complains of intermittent dizziness that occurs with activity. Denies abnormal gait and headaches. Endocrine - Denies diabetes and thyroid disease. Hematologic/Lymphatic - Denies tender or enlarged lymph nodes.. Vital Signs: Physical Exam: GENERAL:??? The patient is alert, and in no acute distress. HEENT:??? Head is normocephalic. Face is symmetric. External ocular movements are intact. Sclera and conjunctivae are non erythematous. NECK:??? Trachea is midline.??? Thyroid is not enlarged by palpation.??? LYMPH NODES:??? There is no cervical or supraclavicular adenopathy bilaterally. LUNGS:??? Clear to auscultation bilaterally. Respiratory movement is unlabored. HEART:??? Regular rate and rhythm. ABDOMEN:??? Soft, nontender, without palpable mass.??? No hepatosplenomegaly. EXTREMITIES:??? No deformities. NEUROLOGIC:??? Gait and station are normal.??? The patient is well coordinated and strength is equal bilaterally. 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 Psych: Affect is normal. Skin: Cursory review of the skin reveals no obvious lesions concerning for malignancy. Performance Status: 2 - Ambulatory/capable of all self-care, unable to perform any work activities. Up and about more than 50% of waking hours. (ECOG) Pathology: Primary, c34.12 - malignant neoplasm of upper lobe, left bronchus or lung, Diagnosed 04/04/2020 (active) stage iiic, t4, n3, m0. Lab: Imaging: See HPI Impression: The patient is a 59 year old male with small cell lung carcinoma originating in the left upper lobe of lung. His disease is borderline with respect to limited stage vs extensive stage given the disease bulk in the left lung contiguous with mediastinal pleura (grossly measuring ~12 x 10 cm) and contralateral mediastinal involvement (i.e., FDG avid level 4R LN). I have ordered an MRI of the brain to complete staging. After discussing this case with Dr. Acevedo, the consensus opinion was to offer the patient 1 or 2 cycles of systemic chemotherapy in the hopes of shrinking the primary tumor mass followed by concurrent chemoradiation therapy to a definitive dose. We discussed the curative intent treatment goals of radiotherapy, prognosis with and without radiation therapy, radiation treatment logistics, and potential acute and late side effects in detail as described above. The patient verbalized understanding of the risks/benefits of radiotherapy and the patient has agreed to proceed as recommended. Therefore the plan is: -) Obtain an MRI of the brain to complete staging; -) 1 or 2 courses of initial systemic chemotherapy; followed by, -) Concurrent chemoradiation therapy to an aggregate dose of 60 Gy/30 fractions. Signed by: Iker Moreno MD 04/09/2020 12:28:08 PM <<Signature on File>> Time spent with patient: CPT Code: CPT Code:
[2020-04-09 11:45] VITALS: RESP 18; O2SAT 98
[2020-04-09] MEDS: morphine 4 mg/mL SDV 1 mL SUBCUT ×2 (11:45→15:20)
[2020-04-09] MEDS: FUROsemide 10 mg/mL SDV 2mL 20 MG IV (12:45)
[2020-04-09] MEDS: sodium chlor 0.9% + KCl 20 mEq 20 MEQ/1,000 ML BAG 1000 MEQ IV (14:05)
[2020-04-09 15:20] VITALS: RESP 17; O2SAT 97
[2020-04-10] MEDS: sodium chloride 0.9% 250 ML 75 ML IV (09:06)
[2020-04-10] MEDS: prochlorperazine 10 mg Tablet PO (09:26)
[2020-04-10] MEDS: HYDROcodone-acetaminophen 5-325 mg Tablet 1 TAB PO (09:26)
[2020-04-11] MEDS: prochlorperazine 10 mg Tablet PO (09:16)
[2020-04-11] MEDS: sodium chloride 0.9% 250 ML 999 ML IV (09:16)
--- NOTE | 2020-04-16 10:06 | MR_ITS ---
WS: [id number] MRI BRAIN WITH AND WITHOUT CONTRAST HISTORY: LUNG CANCER COMPARISON: CT head 07/08/2015. TECHNIQUE: Multiplanar imaging performed through the brain with Prohance 16 ml's IV. Diffusion-weighted abnormality measures 5 mm in the inferior LEFT basal ganglia. ADC map is indetermi naomi. This may be a subacute infarct. Cannot completely exclude early metastatic lesion. There are additional enhancing lesions in the LEFT frontal cortex measuring 7 mm and abutting the dur a. There is a small amount of surrounding edema. There is an additional cortical enhancing lesion gerber suring 4 mm in the LEFT parietal cortex. There is a small amount of surrounding edema. No additional enhancing lesions are identified. There is an additional nonenhancing T2 and FLAIR signal abnormality in the posterior RIGHT frontal cortex measuring 5 mm. No prior hemorrhage. Mild atrophy. Ventricles and extra-axial spaces are normal. Clivus and pituitary gland are normal. Visualized posterior fossa and brainstem are also normal. Paranasal sinuses: Small amount of fluid in the LEFT maxillary sinus. Mastoid air cells: Normal. Calvarium and scalp: Normal. MR/MR head wo/w con [id number] IMPRESSION: 1. Enhancing metastatic lesions in the LEFT frontal and LEFT parietal cortex a s described above. 2. There are 2 additional nonenhancing lesions (inferior LEFT basal ganglia an d RIGHT frontal cortex). Suspicious but cannot confirm metastatic sites. The LE FT basal ganglia lesion may be a subacute infarct. 3. No midline shift or significant atrophy.
[2020-04-17 10:28] LABS: Basophils % 0.3 %; Eosinophils # 0.1 10^3/uL (0.0-0.8); Eosinophils % 1.3 %; Hematocrit 40.2 % (42.0-52.0); Hemoglobin 12.4 g/dL (11.7-16.6); Lymphocytes # 1.1 10^3/uL (0.8-4.8); Lymphocytes % 10.5 %; Mean Corpuscular HGB Conc 30.8 g/dL (30.0-36.0); Mean Corpuscular Hemoglobin 27.7 pg (28.0-34.0); Mean Corpuscular Volume 89.9 fL (80-94); Mean Platelet Volume 9.8 fL (7.4-10.4); Monocytes # 0.1 10^3/uL (0.2-0.9); Monocytes % 1.2 %; Neutrophils # 8.94 10^3/uL (1.8-7.7); Neutrophils % 85.7 %; Nucleated Red Blood Cells % 0 %; Platelet Count 259 10^3/cmm (130-400); Red Blood Count 4.47 10^6/uL (4.1-5.3); Red Cell Distribution Width 12.6 % (12.1-15.1); White Blood Count 10.4 10^3/uL (4.0-10.0)
[2020-04-23 09:17] LABS: Eosinophils # 0.1 10^3/uL (0.0-0.8); Eosinophils % 1.7 %; Hematocrit 38.3 % (42.0-52.0); Hemoglobin 11.8 g/dL (11.7-16.6); Lymphocytes # 0.9 10^3/uL (0.8-4.8); Lymphocytes % 30.1 %; Mean Corpuscular HGB Conc 30.8 g/dL (30.0-36.0); Mean Corpuscular Hemoglobin 27.8 pg (28.0-34.0); Mean Corpuscular Volume 90.1 fL (80-94); Mean Platelet Volume 9.4 fL (7.4-10.4); Monocytes # 0.2 10^3/uL (0.2-0.9); Monocytes % 7.7 %; Neutrophils # 1.77 10^3/uL (1.8-7.7); Neutrophils % 59.2 %; Nucleated Red Blood Cells % 0 %; Platelet Count 238 10^3/cmm (130-400); Red Blood Count 4.25 10^6/uL (4.1-5.3); Red Cell Distribution Width 12.8 % (12.1-15.1)
--- NOTE | 2020-04-26 22:54 | ONC FU_ITS ---
[facility] Patient Note Patient: Saman Orozco Unit #: [id number]: 1960 Dictated By: Jossue RossDate of Visit: Apr 17, 2020 Onc MED Follow-Up/Prog Note Chief Complaint: /Lung cancer./ History of Present Illness: Mr Orozco is a 59 year-old man with newly diagnosed small cell lung cancer. . On 03/13/2020 he had presented to the emergency room with shortness of breath and hemoptysis. His CT pulmonary angiogram showed a large mass in the left upper lobe which was noted to extend into the anterior and superior mediastinum with obstruction of the left upper lobe bronchi. It was noted to surround the left main pulmonary artery and left upper lobe branches. There were additional small pulmonary nodules in the left upper lobe, the largest measuring 7.7 mm, worrisome for metastatic lesions. There were mildly prominent subcarinal and right hilar lymph nodes, below CT criteria for lymphadenopathy. There was no other obvious metastatic disease. He was seen by Dr. Feliciano on 03/19/2020 and bronchoscopy/EBUS the following day showed complete obstruction of the left upper lobe bronchus by an infiltrating mass. EBUS demonstrated mediastinal and hilar lymphadenopathy, predominantly on the left side. Endobronchial biopsies were obtained from the left upper lobe and transbronchial FNA biopsies were obtained from station 7 and left hilar lymph nodes. The endobronchial biopsy and left hilar lymph node biopsy were positive for small cell carcinoma. The FNAs were insufficient for diagnosis. Staging PET/CT on 03/22/2020 showed FDG avid left upper perihilar mass measuring 11.1 x 6.0 x 7.8 cm with SUV 16.8. There was invasion into the adjacent mediastinum. An 8 mm left apical soft tissue nodule was FDG negative. There were FDG avid mediastinal lymph nodes in the subcarinal and right paratracheal areas, maximum SUV 5.6 in the subcarinal node. There was some questionable uptake in the pancreatic tail. There was otherwise no evidence for metastatic disease outside the chest. Mr Orozco was offered treatment with Cisplatin/etoposide and began his first treatment on 04/09/2020. He is here today for day 8 follow-up. He states overall he is feeling much better today. He states he really did not feel pretty washed out over the weekend. He states he was just draggy. He denies nausea or vomiting. He denies any fever or chills. He has had no signs of infection for at least the last 72 hours. He denies any COVID symptoms. He denies any known COVID exposure or personal COVID testing. He states his bowels are normal for him. He denies any neuropathy or hearing changes at present. He states he was just weak and washed out. He states he just did not want to get out of bed much for couple of days but that now is resolved and he is feeling better today. His ECOG is 2. Past Medical History: Chronic obstructive pulmonary disease Degenerative disease of the spine Depression Hypertension Post traumatic stress disorder Past Surgical History: Cervical spine surgery x 2 which included cervical fusion Porth catheter placement dr. barrera Tonsillectomy Bronchoscopy with endobronchial biopsy and with EBUS/transbronchial FNA lymph node biopsies in 2019 Allergies: Bactrim DS, fentaNYL, and Sulfa Antibiotics. Medications: ARIPiprazole (sensor) 1 Tablet (of 30 mg) Oral daily Bevespi Aerosphere 2 Puff(s) (of 9-4.8 mcg/act) Aerosol Inhalation PRN Lisinopril 1 Tablet (of 20 mg) Oral daily PARoxetine HCl 1 Tablet (of 10 mg) Oral at bedtime Ventolin HFA 2 Puff(s) (of 108 (90 base) mcg/act) Aerosol, solution Inhalation b.i.d. Family History: Father had Hodgkin's lymphoma and dementia. He at age 71. Mother with brain cancer at age 68. A sister age 64, apparently of COPD and congestive heart failure. Two other sisters are in good health. Social History: Mr. Orozco is . Mr. Orozco quit smoking less than one year ago but had smoked 2.0 packs/day for 50 years. He has no history of drinking. He has indicated exposure to the following products: cigarettes and recreational drug use. He has a history of smoking 2 packs of cigarettes daily for approximately 50 years. He quit smoking 1 week ago. He had some alcohol use when he was younger. He quit drinking in 2003. His medical records indicate that he has had some substance abuse. Review Of Symptoms: Constitutional Denies fevers, chills, night sweats, excessive fatigue or weight loss. Allergic/Immunologic No reactions. Eyes Denies significant visual changes. No diplopia. No amaurosis. ENMT Denies changes in hearing, sore throat, mouth sores, difficulty or changes in swallowing ability, and/or sinus drainage. Hematologic/Lymphatic Denies easy bruising or bleeding. The patient denies any tender or palpable lymph nodes. Respiratory Denies dyspnea on exertion, chest pain, cough or hemoptysis. Denies orthopnea. Cardiovascular Denies anginal chest pain, palpitations or orthopnea. Gastrointestinal Denies nausea, vomiting, diarrhea, GI bleeding, or constipation. Denies change in bowel habits and/or stool color, no heartburn or early satiety. Genitourinary (M) Denies hematuria, dysuria, increased frequency, urgency, hesitancy or incontinence. Musculoskeletal Denies joint pain, swelling or redness. No decreased range of motion. Integumentary Denies chronic rashes, inflammation, ulcerations or skin changes. Neurologic Denies headache, blurred vision, and no areas of focal weakness or numbness. Normal gait. No sensory problems. Psychiatric Denies insomnia, depression, jose or mood swings. Vital Signs: Performed on Apr 17, 2020 11:37 Height - 64.00 in Weight - 150.6 lbs (LOW) BSA - 1.73 sq.m BMI - 25.85 Temperature - 98.4 F Pulse - 108 /min (HIGH) Respiration - 24 /min BP - 128/90 mm(hg) O2 Sat - 95 % (LOW) Pain - 8,2 - Ambulatory/capable of all self-care, unable to perform any work activities. Up and about more than 50% of waking hours. (ECOG) Physical Examination: Constitutional Alert, oriented, no acute distress. Skin pink, warm and dry. Head Normocephalic; atraumatic. Eyes Conjunctivae and sclerae are clear and without icterus. Pupils are reactive and equal. ENMT No oral exudates, ulcers, masses, thrush or mucositis. Oropharynx clear. Tongue normal. Neck Supple without masses or thyromegaly. No jugular venous distension. Hematologic/Lymphatic No petechiae or purpura. No tender or palpable lymph nodes in the cervical or supraclavicular areas. Respiratory Lungs are clear to auscultation without rhonchi or wheezing. Cardiovascular Regular rate and rhythm of heart without murmurs,clicks, gallops or rubs. Abdomen Non-tender, non-distended, no masses or ascites. Back/Spine Non-tender to palpation. Extremities No visible deformities, no cyanosis, clubbing or edema. Musculoskeletal No tenderness or swelling, normal range of motion without obvious weakness. Integumentary No rashes or lesions. Neurologic No sensory or motor deficits, normal cerebellar function, normal gait. Psychiatric Alert and oriented times three. Coherent speech. Verbalizes understanding of our discussions today. Laboratory:Test performed on Apr 23, 2020 08:49 WBC 3.0 10 3/uL RBC 4.25 10 6/uL HGB 11.8 g/dL HCT 38.3 % MCV 90.1 fL MCH 27.8 pg MCHC 30.8 g/dL RDW 12.8 % Platelet Count 238 10 3/cmm MPV 9.4 fL Neutrophils 1.77 10 3/uL Lymphocytes 0.9 10 3/uL Monocytes 0.2 10 3/uL Eosinophils 0.1 10 3/uL Basophils 0.0 10 3/uL Neutrophil % 59.2 % Lymphocyte % 30.1 % Monocyte % 7.7 % Eosinophil % 1.7 % Basophils % 1.0 % NRBC % 0 % Test performed on Apr 04, 2020 09:29 Manual Diff NS OF [id number] Impression: 1. Patient with newly diagnosed small cell carcinoma involving the upper lobe of the left lung. There is associated left upper lobe bronchial occlusion. By clinical evaluation his disease appears to be TNM stage IIIC (T4, N3, M0), and potentially limited stage for treatment purposes. 2. He underwent bronchoscopy/EBUS on 03/20/2020. His other medical illnesses include: 3. Hypertension. 4. COPD. 5. Degenerative disease of the cervical spine. 6. Posttraumatic stress disorder and depression. The CT and PET/CT findings and the pathology results were reviewed with the patient per Dr Acevedo. He reviewed the CT images, and discussed the clinical implications. Mr Orozco has small cell lung cancer involving the upper lobe of the left lung. It is a very large primary tumor with associated left upper lobe bronchial obstruction. There is likely mediastinal lymph node involvement, but his disease thus far does appear to be confined to the chest and it is potentially limited stage for treatment purposes. He does need to complete staging with brain MRI. However, given the extent of his disease and his symptoms, it was recommended that we get treatment started soon as possible. He has had port placement and radiation referral. Mr Orozco began his first cycle of chemotherapy with Cisplatin etoposide on April 09, 2020. His MRI of the head was obtained on 04/16/2020 and did report diffusion-weighted abnormality measuring 5 mm in the left inferior basal ganglia. ADC map is indeterminate. This may be a subacute infarct. Cannot completely exclude early metastatic lesion. There are additional enhancing lesions in the left frontal cortex measuring 7 mm and abutting the dura. There is a small amount of surrounding edema. There is an additional cortical enhancing lesion measuring 4 mm in the left parietal cortex. There is small amount of surrounding edema. No additional enhancing lesions are identified. There is an additional nonenhancing T2 and flair signal abnormality in the posterior right frontal cortex measuring 5 mm. Mr. Pinto is following with Dr. Moreno in radiation oncology regarding the MRI. Plan: 1. Proceed with cycle [address] croix etoposide. This is day 8. 2. Supportive care with hydration as needed. 3. Labs from today were reviewed in detail discussed with Mr. Orozco and a copy was given to him. WBC 10.4, hemoglobin 12.4, platelets 259,000 ANC is 8900. 4. We will continue weekly interim counts. We will plan to see him back in 2 weeks with CBC CMP. He will have port flush with each lab draw for port maintenance. 5. Mr. Orozco was instructed to contact us in interim should questions or problems arise. 6. He was given a refill his hydrocodone per Dr. Acevedo's written authorization. Signed By: Jossue Ross-, AOCNP Rancho Acevedo MD <<Signature on File>>
== END 2020-04-23 23:59 | disposition home or self-care (01) ==
LOC: ONCMED 05:35
PROVIDERS: Nurse Practitioner; PCP Nurse Practitioner Family; Referring Provider Internal Medicine Critical Care Medicine; Visit Provider Internal Medicine Medical Oncology
DX: Z51.11 Encounter for antineoplastic chemotherapy (principal); C34.12 Malignant neoplasm of upper lobe, left bronchus or lung; I10 Essential (primary) hypertension; J44.9 Chronic obstructive pulmonary disease, unspecified; M50.30 Other cervical disc degeneration, unspecified cervical region; F43.10 Post-traumatic stress disorder, unspecified; F32.9 Major depressive disorder, single episode, unspecified
CPT/HCPCS: 36591; 70553; 85025; 87635; 96367; 96372; 96375; 96413; 96417; 99205; 99214; 99215; A9579; J1100; J1453; J1940; J2270; J2469; J7040; J7050; J9060; J9181; Q0164

== ENCOUNTER 2020-05-06 08:03 | Outpatient (CLI) | payer MEDICAID, SELFPAY ==
--- NOTE | 2020-05-06 08:28 | CT_ITS ---
WS: [id number] CT CHEST TECHNIQUE: Contrast enhanced CT of the chest with coronal and sagittal reformatted images. CLINICAL INFORMATION: LUNG CANCER COMPARISON: CT March 14, 2020 and PET/CT March 22, 2020 DLP: 829.[address] scans at [facility] use at least one of these dose optimization techniques: automat ed exposure control; mA and/or kV adjustment per patient size (includes targeted exams where dose is matched to clinical indication); or iterative reconstruction. FINDINGS: Previously described left perihilar and upper lobe suprahilar mass with mediastinal invasion has sign ificantly improved compared to the prior examinations measuring 4.2 x 1.7 x 4.6 cm AP by transverse b y craniocaudal. Previously this measured 11.1 x 6.0 x 7.8 cm on the prior PET/CT. Improved previously described FDG-positive mediastinal lymph nodes in the subcarinal and right peritracheal territories. Residual postobstructive atelectasis/subsegmental atelectasis in the lingula. This is improved from previous .Left [place] 8 mm nodule has improved with a small faint nodule measuring 5 mm. Small nodular opacity along the fissure measuring 4 mm. This is nonspecific but may be inflammatory. No significant pericardial effusion. Coronary calcification. Mild diffuse fatty infiltration the live r. Adrenal glands are normal. Small esophageal hiatal hernia. Hypertrophic changes thoracic spine. No rmal caliber thoracic aorta. Normal axillary lymph nodes. Centrilobular emphysematous changes CT/CT chest w con* [id number] IMPRESSION: 1. Significant interval improvement in the left perihilar and suprahilar mass with invasion into the mediastinum. Residual soft tissue measures approximately 4.2 x 1.7 x 4.6 cm AP by transverse by craniocaudal. 2. Previously described mediastinal adenopathy has essentially resolved. Resid ual soft tissue thickening along the left hilum. 3. No axillary lymphadenopathy. 4. Improved postobstructive pneumonia involving the lingula with subsegmental atelectasis. 5. Left [place] 8 mm nodule has improved with a small faint nodule measuring 5 mm . 6. Small nodular opacity along the fissure measuring 4 mm. This is nonspecific but may be inflammatory. 7. No other significant interval changes.
[2020-05-06] MEDS: iohexol 300 mg/mL 100 mL Btl IV (08:48)
== END 2020-05-06 08:04 | disposition home or self-care (01) ==
LOC: RADWPI 08:05
PROVIDERS: PCP Nurse Practitioner Family; Visit Provider Internal Medicine Medical Oncology
DX: C34.12 Malignant neoplasm of upper lobe, left bronchus or lung (principal); J98.11 Atelectasis; J18.8 Other pneumonia, unspecified organism
CPT/HCPCS: 71260; Q9967

== ENCOUNTER 2020-05-20 05:36 | Outpatient (RCR) | payer MEDICAID, SELFPAY ==
[2020-04-30 08:18] LABS: Basophils % 1.1 %; Eosinophils # 0.1 10^3/uL (0.0-0.8); Eosinophils % 1.9 %; Hematocrit 38.4 % (42.0-52.0); Hemoglobin 11.9 g/dL (11.7-16.6); Lymphocytes # 1.7 10^3/uL (0.8-4.8); Lymphocytes % 47.6 %; Mean Corpuscular Hemoglobin 28.2 pg (28.0-34.0); Mean Platelet Volume 8.6 fL (7.4-10.4); Monocytes # 0.6 10^3/uL (0.2-0.9); Monocytes % 15.5 %; Neutrophils # 1.16 10^3/uL (1.8-7.7); Neutrophils % 32.2 %; Nucleated Red Blood Cells % 0 %; Platelet Count 404 10^3/cmm (130-400); Red Blood Count 4.22 10^6/uL (4.1-5.3); Red Cell Distribution Width 13.9 % (12.1-15.1); White Blood Count 3.6 10^3/uL (4.0-10.0)
[2020-04-30] MEDS: sodium chloride 0.9% 250 ML 75 ML IV (08:30)
[2020-04-30 08:37] LABS: Alanine Aminotransferase 9 U/L (0-41); Albumin Level 4.2 g/dL (3.5-5.2); Alkaline Phosphatase 125 IU/L (40-130); Anion Gap 14.9 (5-19); Aspartate Amino Transferase 13 U/L (0-40); Blood Urea Nitrogen 11 mg/dL (8-23); Carbon Dioxide 26 mmol/L (22-29); Chloride 100 mmol/L (98-107); Globulin 2.8 g/dL (1.3-4.6); Glomerular Filtration Rate 85.8 mL/min (90-130); Glucose 101 mg/dL (65-115); Osmolality Calculated 284 mOsm/kg (285-295); Potassium 3.9 mmol/L (3.5-5.1); Sodium 137 mmol/L (136-145); Total Bilirubin 0.2 mg/dL (0.15-1.2)
--- NOTE | 2020-04-30 11:03 | ONC FU_ITS ---
Dr. Acevedo Patient Follow-Up Note Patient: Saman Orozco Unit #: [id number]: 1960 Dicatated By: Rancho Acevedo M.D.Date of Visit:Apr 30, 2020 Onc Med Follow-up/Prog Note Chief Complaint: Lung cancer. History of Present Illness: This is a 59 year-old man with small cell lung cancer, stage IV (T4, N3, M1c). On 03/13/2020 he had presented to the emergency room with shortness of breath and hemoptysis. His CT pulmonary angiogram showed a large mass in the left upper lobe which was noted to extend into the anterior and superior mediastinum with obstruction of the left upper lobe bronchi. It was noted to surround the left main pulmonary artery and left upper lobe branches. There were additional small pulmonary nodules in the left upper lobe, the largest measuring 7.7 mm, worrisome for metastatic lesions. There were mildly prominent subcarinal and right hilar lymph nodes, below CT criteria for lymphadenopathy. There was no other obvious metastatic disease. He was seen by Dr. Feliciano on 03/19/2020 and bronchoscopy/EBUS the following day showed complete obstruction of the left upper lobe bronchus by an infiltrating mass. EBUS demonstrated mediastinal and hilar lymphadenopathy, predominantly on the left side. Endobronchial biopsies were obtained from the left upper lobe and transbronchial FNA biopsies were obtained from station 7 and left hilar lymph nodes. The endobronchial biopsy and left hilar lymph node biopsy were positive for small cell carcinoma. The FNAs were insufficient for diagnosis. Staging PET/CT on 03/22/2020 showed FDG avid left upper perihilar mass measuring 11.1 x 6.0 x 7.8 cm with SUV 16.8. There was invasion into the adjacent mediastinum. An 8 mm left apical soft tissue nodule was FDG negative. There were FDG avid mediastinal lymph nodes in the subcarinal and right paratracheal areas, maximum SUV 5.6 in the subcarinal node. There was some questionable uptake in the pancreatic tail. There was otherwise no evidence for metastatic disease outside the chest. I had seen him initially on 04/04/2020. As his disease at that point appeared to be limited to the chest, he was recommended to begin chemotherapy with cisplatin/etoposide with plan to begin radiation and chemotherapy concurrently at cycle 2. He began cycle 1 chemotherapy on 04/09/2020. He tolerated it without acute toxicity. His staging brain MRI on 04/16/2020 showed enhancing metastatic lesions in the left frontal and left parietal cortex measuring 7 mm and 4 mm respectively. There was a small amount of associated edema. Additional nonenhancing lesion was noted in the posterior right frontal cortex measuring 5 mm. A diffuse weighted abnormality measuring 5 mm in the inferior left basal ganglia appeared to be consistent with subacute infarct. He is seen now for a follow-up visit. He indicates that he was pretty wiped out for 3 or 4 days after his chemotherapy, but he did not have nausea/vomiting or other acute toxicity. His energy has since then improved. He is able to do some light work now. ECOG score is 1. His appetite is pretty good. He has gained 8 pounds. He does not have fever or night sweats. He still has shortness of breath, but his breathing is a little better. He continues to have cough productive of white or clear sputum. He does not complain of chest pain. He had diarrhea for a couple of days. Since then his stools have been loose at times. He has no complaints. He has pain in his neck and right shoulder area, and there is pain in the right chest associated with his Port-A-Cath. He does not complain of headache or dizziness. He has no focal neurologic symptoms. He has having some issues with anxiety/depression. Medications: ARIPiprazole (sensor) 1 Tablet (of 30 mg) Oral daily, Bevespi Aerosphere 2 Puff(s) (of 9-4.8 mcg/act) Aerosol Inhalation PRN, Lisinopril 1 Tablet (of 20 mg) Oral daily, PARoxetine HCl 1 Tablet (of 10 mg) Oral at bedtime, Ventolin HFA 2 Puff(s) (of 108 (90 base) mcg/act) Aerosol, solution Inhalation b.i.d. Allergies: Bactrim DS, fentaNYL, and Sulfa Antibiotics. Review of Systems: Constitutional - He states that his first treatment wiped him out pretty significantly but his energy has mostly recovered. He is able to do light to moderate house around the house. His appetite is good and his weight is up pounds. No fever, night sweats, or hot flashes. ECOG score is 1, ENMT - No sinus congestion/drainage. No mouth sores. No sore throat or difficulty swallowing, Hematologic/Lymphatic - No abnormal bruising or bleeding, Respiratory - He has some shortness of breath. He has cough productive of clear or white sputum. No pleuritic pain or hemoptysis, Cardiovascular - No angina pain. No palpitations, Gastrointestinal - No nausea or vomiting. No heartburn or acid reflux. He had diarrhea briefly. He now has some loose stools. No blood in the stool or black stools, Genitourinary (M) - No dysuria or hematuria. No urinary frequency. No urgency or incontinence, Musculoskeletal - He has pain in his neck and right shoulder. He has soreness in his chest wall and shoulder area from his port, Integumentary - No skin complications, Neurologic - No headache or dizziness. No numbness or tingling. No other focal neurologic symptoms, Psychiatric - He is having anxiety/depression. No insomnia. Vital Signs: Performed on Apr 30, 2020 09:06 Height - 64.00 in Weight - 158.4 lbs (HIGH) BSA - 1.77 sq.m BMI - 27.19 Temperature - 98.7 F Pulse - 86 /min Respiration - 22 /min BP - 165/99 mm(hg) (HIGH) O2 Sat - 97 % Pain - 7 Physical Examination: Constitutional - He appears somewhat weak generally, Eyes - Sclerae nonicteric. Conjunctivae clear, ENMT - No lesions noted in the oral cavity, Hematologic/Lymphatic - No cervical, clavicular, or axillary adenopathy, Respiratory - Lungs show slightly air movement on the right. Breath sounds are coarse on the left and he has a few coarse rales, Cardiovascular - Heart rhythm is regular. There is no murmur, gallop, or rub noted, Abdomen - Mildly distended but soft. Liver and spleen are not enlarged. There is no abdominal mass or ascites noted and there is no inguinal adenopathy, Extremities - No edema. Dorsalis pedis pulses are palpable bilaterally, Integumentary - No rashes. No suspicious skin lesions noted, Neurologic - No focal neurologic deficits noted. Lab/Imaging: Test performed on Apr 30, 2020 08:09 Sodium 137 mmol/L Potassium 3.9 mmol/L Chloride 100 mmol/L CO2 26 mmol/L Anion Gap 14.9 BUN 11 mg/dL Creatinine 0.9 mg/dL Cr Clearance (Est) 85.3800 mL/min eGFR 85.8 mL/min Glucose 101 mg/dL Osmolality - Calculated 284 mOsm/kg Calcium 9.0 mg/dL Protein, Total 7.0 g/dL Albumin 4.2 g/dL Globulin 2.8 g/dL Bilirubin, Total 0.2 mg/dL ALT (SGPT) 9 U/L AST (SGOT) 13 U/L Alkaline Phosphatase 125 IU/L WBC 3.6 10 3/uL RBC 4.22 10 6/uL HGB 11.9 g/dL HCT 38.4 % MCV 91.0 fL MCH 28.2 pg MCHC 31.0 g/dL RDW 13.9 % Platelet Count 404 10 3/cmm MPV 8.6 fL Neutrophils 1.16 10 3/uL Lymphocytes 1.7 10 3/uL Monocytes 0.6 10 3/uL Eosinophils 0.1 10 3/uL Basophils 0.0 10 3/uL Neutrophil % 32.2 % Lymphocyte % 47.6 % Monocyte % 15.5 % Eosinophil % 1.9 % Basophils % 1.1 % NRBC % 0 % Impression: 1. Patient with newly diagnosed small cell carcinoma involving the upper lobe of the left lung. There is associated left upper lobe bronchial occlusion. By clinical evaluation his disease appeared to be TNM stage IIIC (T4, N3, M0), but subsequently determined to be stage IV (M1c) with several metastatic lesions reported on brain MRI. 2. He underwent bronchoscopy/EBUS on 03/20/2020. His other medical illnesses include: 3. Hypertension. 4. COPD. 5. Degenerative disease of the cervical spine. 6. Posttraumatic stress disorder and depression. He began cycle 1 of chemotherapy with cisplatin/etoposide on 04/09/2020. He had significant weakness/fatigue for 3 to 4 days after treatment, and he had moderately severe neutropenia with a alex ANC of approximately 1000. He otherwise tolerated the treatment well. He has not been evaluated for response, but his staging MRI did show several small metastatic lesions in the brain. Plan: As he still has moderately severe neutropenia, his cycle 2 chemotherapy will be delayed. We will have restaging chest CT and depending on his response, we may proceed then with combined chemoradiation for the lung tumor. We will also plan a 2-month interval restaging brain MRI and will defer radiation for the brain metastasis as long as they are adequately controlled with chemotherapy. Signed By: Rancho Acevedo M.D. <<Signature on File>>
[2020-05-13] MEDS: sodium chloride 0.9% 250 ML 75 ML IV (08:47)
[2020-05-13 08:49] LABS: Basophils # 0.1 10^3/uL (0.0-0.1); Basophils % 0.6 %; Eosinophils # 0.1 10^3/uL (0.0-0.8); Hemoglobin 12.3 g/dL (11.7-16.6); Lymphocytes # 1.5 10^3/uL (0.8-4.8); Lymphocytes % 15.8 %; Mean Corpuscular HGB Conc 30.8 g/dL (30.0-36.0); Mean Corpuscular Hemoglobin 28.1 pg (28.0-34.0); Mean Corpuscular Volume 91.5 fL (80-94); Mean Platelet Volume 9.8 fL (7.4-10.4); Monocytes # 0.8 10^3/uL (0.2-0.9); Neutrophils # 7.15 10^3/uL (1.8-7.7); Neutrophils % 74.4 %; Nucleated Red Blood Cells % 0 %; Platelet Count 180 10^3/cmm (130-400); Red Blood Count 4.37 10^6/uL (4.1-5.3); Red Cell Distribution Width 14.2 % (12.1-15.1); White Blood Count 9.6 10^3/uL (4.0-10.0)
[2020-05-13 09:11] LABS: Alanine Aminotransferase 10 U/L (0-41); Albumin Level 4.2 g/dL (3.5-5.2); Alkaline Phosphatase 105 IU/L (40-130); Aspartate Amino Transferase 14 U/L (0-40); Blood Urea Nitrogen 8 mg/dL (8-23); Calcium 8.8 mg/dL (8.5-10.5); Carbon Dioxide 28 mmol/L (22-29); Chloride 101 mmol/L (98-107); Globulin 2.7 g/dL (1.3-4.6); Glomerular Filtration Rate 114.6 mL/min (90-130); Glucose 83 mg/dL (65-115); Osmolality Calculated 283 mOsm/kg (285-295); Sodium 138 mmol/L (136-145); Total Bilirubin 0.2 mg/dL (0.15-1.2); Total Protein 6.9 g/dL (6.6-8.7)
--- NOTE | 2020-05-13 10:52 | ONC FU_ITS ---
[facility] Patient Note Patient: Saman Orozco Unit #: [id number]: [id number] Dictated By: Jossue RossDate of Visit: May 13, 2020 Onc MED Follow-Up/Prog Note Chief Complaint: Lung cancer. History of Present Illness: Mr Orozco is a 59 year-old man with small cell lung cancer, stage IV (T4, N3, M1c). On 03/13/2020 he had presented to the emergency room with shortness of breath and hemoptysis. His CT pulmonary angiogram showed a large mass in the left upper lobe which was noted to extend into the anterior and superior mediastinum with obstruction of the left upper lobe bronchi. It was noted to surround the left main pulmonary artery and left upper lobe branches. There were additional small pulmonary nodules in the left upper lobe, the largest measuring 7.7 mm, worrisome for metastatic lesions. There were mildly prominent subcarinal and right hilar lymph nodes, below CT criteria for lymphadenopathy. There was no other obvious metastatic disease. He was seen by Dr. Feliciano on 03/19/2020 and bronchoscopy/EBUS the following day showed complete obstruction of the left upper lobe bronchus by an infiltrating mass. EBUS demonstrated mediastinal and hilar lymphadenopathy, predominantly on the left side. Endobronchial biopsies were obtained from the left upper lobe and transbronchial FNA biopsies were obtained from station 7 and left hilar lymph nodes. The endobronchial biopsy and left hilar lymph node biopsy were positive for small cell carcinoma. The FNAs were insufficient for diagnosis. Staging PET/CT on 03/22/2020 showed FDG avid left upper perihilar mass measuring 11.1 x 6.0 x 7.8 cm with SUV 16.8. There was invasion into the adjacent mediastinum. An 8 mm left apical soft tissue nodule was FDG negative. There were FDG avid mediastinal lymph nodes in the subcarinal and right paratracheal areas, maximum SUV 5.6 in the subcarinal node. There was some questionable uptake in the pancreatic tail. There was otherwise no evidence for metastatic disease outside the chest. Dr Acevedo had seen him initially on 04/04/2020. As his disease at that point appeared to be limited to the chest, he was recommended to begin chemotherapy with cisplatin/etoposide with plan to begin radiation and chemotherapy concurrently at cycle 2. He began cycle 1 chemotherapy on 04/09/2020. He tolerated it without acute toxicity. His staging brain MRI on 04/16/2020 showed enhancing metastatic lesions in the left frontal and left parietal cortex measuring 7 mm and 4 mm respectively. There was a small amount of associated edema. Additional nonenhancing lesion was noted in the posterior right frontal cortex measuring 5 mm. A diffuse weighted abnormality measuring 5 mm in the inferior left basal ganglia appeared to be consistent with subacute infarct. Follow-up CT of the chest with contrast from 05/06/2020 reported significant improvement in the left perihilar and upper lobe supra hilar mass. It measured 4.2 x 1.7 x 4.6 cm AP by transverse by craniocaudal and previously it was 11.1 x 6.0 x 7.8 cm on the prior PET CT. The left apex 8 mm nodule has improved with a small faint nodule measuring 5 mm. There is a small nodule opacity along the fissure measuring 4 mm. This was nonspecific and may be inflammatory. There is no axillary lymphadenopathy. As he had significant improvement we will continue with cycle 2 chemotherapy and plan for radiation after his chemotherapy is finished per Dr. Acevedo's instructions. Current plan is 4-6 cycles of cis-[place] etoposide. He will require Neulasta support as he was significantly neutropenic with cycle 1. His ANC on day 8 was 8900 and on day 15 he was at 1700 and subsequently cycle 2-day 1 he was 1100. Because of the neutropenia his cycle 2 was delayed. Mr. Orozco is here today for follow-up. His counts have recovered adequately and he is scheduled for cycle 2 chemotherapy. He is aware of his recent CT report which shows significant improvement. He has no new concerns today. He denies any fever or chills. He has had no signs of infection for at least the last 72 hours. He denies any nausea or vomiting. He states he has occasional diarrhea but this is normal for him. Is never been uncontrolled. He states it never last more than a day. He denies any pain. He denies any mouth sores, sore throat or difficulty swallowing. He states he thinks his breathing is some better overall. He has productive cough of just normal sputum . He denies any hearing changes. He denies any neuropathy symptoms at this time. His ECOG is 1. He states he feels better and has been doing more around the house. Past Medical History: Chronic obstructive pulmonary disease Degenerative disease of the spine Depression Hypertension Post traumatic stress disorder Past Surgical History: Cervical spine surgery x 2 which included cervical fusion Porth catheter placement dr. barrera Tonsillectomy Bronchoscopy with endobronchial biopsy and with EBUS/transbronchial FNA lymph node biopsies in 2019 Allergies: Bactrim DS, fentaNYL, and Sulfa Antibiotics. Medications: ARIPiprazole (sensor) 1 Tablet (of 30 mg) Oral daily Bevespi Aerosphere 2 Puff(s) (of 9-4.8 mcg/act) Aerosol Inhalation PRN Lisinopril 1 Tablet (of 20 mg) Oral daily PARoxetine HCl 1 Tablet (of 10 mg) Oral at bedtime Ventolin HFA 2 Puff(s) (of 108 (90 base) mcg/act) Aerosol, solution Inhalation b.i.d. Family History: Father had Hodgkin's lymphoma and dementia. He at age 71. Mother with brain cancer at age 68. A sister age 64, apparently of COPD and congestive heart failure. Two other sisters are in good health. Social History: Mr. Orozco is . Mr. Orozco quit smoking less than one year ago but had smoked 2.0 packs/day for 50 years. He has no history of drinking. He has indicated exposure to the following products: cigarettes and recreational drug use. He has a history of smoking 2 packs of cigarettes daily for approximately 50 years. He quit smoking 1 week ago. He had some alcohol use when he was younger. He quit drinking in 2003. His medical records indicate that he has had some substance abuse. Review Of Symptoms: Constitutional Denies fevers, chills, night sweats, excessive fatigue or weight loss. Allergic/Immunologic No reactions. Eyes Denies significant visual changes. No diplopia. No amaurosis. ENMT Denies changes in hearing, sore throat, mouth sores, difficulty or changes in swallowing ability, and/or sinus drainage. Hematologic/Lymphatic Denies easy bruising or bleeding. The patient denies any tender or palpable lymph nodes. Respiratory Denies dyspnea on exertion, chest pain, cough or hemoptysis. Denies orthopnea. Cardiovascular Denies anginal chest pain, palpitations or orthopnea. Gastrointestinal Denies nausea, vomiting, diarrhea, GI bleeding, or constipation. Denies change in bowel habits and/or stool color, no heartburn or early satiety. Genitourinary (M) Denies hematuria, dysuria, increased frequency, urgency, hesitancy or incontinence. Musculoskeletal Denies joint pain, swelling or redness. No decreased range of motion. Integumentary Denies chronic rashes, inflammation, ulcerations or skin changes. Neurologic Denies headache, blurred vision, and no areas of focal weakness or numbness. Normal gait. No sensory problems. Psychiatric Denies insomnia, depression, jose or mood swings. Vital Signs: Performed on May 13, 2020 09:22 Height - 64.00 in Weight - 163.0 lbs (HIGH) BSA - 1.79 sq.m BMI - 27.98 Temperature - 98.0 F (LOW) Pulse - 83 /min Respiration - 20 /min BP - 152/102 mm(hg) (HIGH) O2 Sat - 98 % Pain - 8,1 - No physically strenuous activity, but ambulatory and able to carry out light or sedentary work (e.g. office work, light house work). (ECOG) Physical Examination: Constitutional Alert, oriented, no acute distress. Skin pink, warm and dry. Head Normocephalic; atraumatic. Eyes Conjunctivae and sclerae are clear and without icterus. Pupils are reactive and equal. Neck Supple without masses or thyromegaly. No jugular venous distension. Hematologic/Lymphatic No petechiae or purpura. No tender or palpable lymph nodes in the cervical or supraclavicular areas. Respiratory Lungs are clear to auscultation without rhonchi or wheezing. Cardiovascular Regular rate and rhythm of heart without murmurs,clicks, gallops or rubs. Abdomen Non-tender, non-distended, no masses or ascites. Back/Spine Non-tender to palpation. Extremities No visible deformities, no cyanosis, clubbing or edema. Musculoskeletal No tenderness or swelling, normal range of motion without obvious weakness. Integumentary No rashes or lesions. Neurologic No sensory or motor deficits, normal cerebellar function, normal gait. Psychiatric Alert and oriented times three. Coherent speech. Verbalizes understanding of our discussions today. Laboratory:Test performed on May 13, 2020 08:38 Sodium 138 mmol/L Potassium 4.0 mmol/L Chloride 101 mmol/L CO2 28 mmol/L Anion Gap 13.0 BUN 8 mg/dL Creatinine 0.7 mg/dL Cr Clearance (Est) 109.7800 mL/min eGFR 114.6 mL/min Glucose 83 mg/dL Osmolality - Calculated 283 mOsm/kg Calcium 8.8 mg/dL Protein, Total 6.9 g/dL Albumin 4.2 g/dL Globulin 2.7 g/dL Bilirubin, Total 0.2 mg/dL ALT (SGPT) 10 U/L AST (SGOT) 14 U/L Alkaline Phosphatase 105 IU/L WBC 9.6 10 3/uL RBC 4.37 10 6/uL HGB 12.3 g/dL HCT 40.0 % MCV 91.5 fL MCH 28.1 pg MCHC 30.8 g/dL RDW 14.2 % Platelet Count 180 10 3/cmm MPV 9.8 fL Neutrophils 7.15 10 3/uL Lymphocytes 1.5 10 3/uL Monocytes 0.8 10 3/uL Eosinophils 0.1 10 3/uL Basophils 0.1 10 3/uL Neutrophil % 74.4 % Lymphocyte % 15.8 % Monocyte % 8.0 % Eosinophil % 1.0 % Basophils % 0.6 % NRBC % 0 % Test performed on Apr 04, 2020 09:29 Manual Diff NS OF [id number] Impression: 1. Patient with newly diagnosed small cell carcinoma involving the upper lobe of the left lung. There is associated left upper lobe bronchial occlusion. By clinical evaluation his disease appeared to be TMN stage IIIC (T4, N3, M0), but subsequently determined to be stage IV (M1c) with several metastatic lesions reported on brain MRI. 2. He underwent bronchoscopy/EBUS on 03/20/2020. His other medical illnesses include: 3. Hypertension. 4. COPD. 5. Degenerative disease of the cervical spine. 6. Posttraumatic stress disorder and depression. He began cycle 1 of chemotherapy with cisplatin/etoposide on 04/09/2020. He had significant weakness/fatigue for 3 to 4 days after treatment, and he had moderately severe neutropenia with a alex ANC of approximately 1000. He otherwise tolerated the treatment well. He has not been evaluated for response, but his staging MRI did show several small metastatic lesions in the brain. Follow-up CT of the chest with contrast from May 06, 2020 reported significant improvement in the left perihilar and upper lobe suprahilar mass. He has had good response to 1 cycle of chemotherapy. He will proceed with cycle 2 chemotherapy and the current plan will be to do radiation after completion of 4-6 cycles of chemotherapy. We will add Neulasta with this cycle as he has had chemo induced neutropenia to the point that cycle 2 was delayed an additional 2 weeks. HIs counts have recovered and he will resume chemotherapy with growth factor support today. Plan: 1. Proceed with cycle 2 cisplatin etoposide. 2. Continue aggressive antiemetics due to high risk regimen. 3. Add Neulasta on day 4 for chemotherapy-induced neutropenia with an ANC on day 22 of 1100. It was 8900 on day 8 of cycle 1. The neutropenia resulted in a 2-week delay of cycle 2. 4. Labs from today were reviewed in detail and discussed with Mr. Orozco and a copy was given to him. WBC 9.6, hemoglobin 12.3, platelets 180,000 ANC 7150. Potassium 4.0 creatinine 0.7 LFTs are normal. 5. He will continue weekly interim labs via port. He may have supportive care as needed 6. We will plan to see him back in 3 weeks with CBC CMP for cycle 3 chemotherapy. The current plan per Dr. Acevedo's recent communication note is to do 4-6 cycles of chemotherapy then consider radiation. 7. Mr. Orozco was instructed to contact us in the interim should questions or problems arise. 8. We will also plan a 2-month interval restaging brain MRI and will defer radiation for the brain metastasis as long as they are adequately controlled with chemotherapy. His last MRI with and without contrast was on April 16, 2020. Signed By: Jossue Ross-, [facility] Rancho Acevedo MD <<Signature on File>>
[2020-05-13] MEDS: FUROsemide 10 mg/mL SDV 2mL 20 MG IV (13:42)
[2020-05-14] MEDS: sodium chloride 0.9% 250 ML 75 ML IV (09:13)
[2020-05-14] MEDS: prochlorperazine 10 mg Tablet PO (09:13)
[2020-05-15] MEDS: sodium chloride 0.9% 250 ML 75 ML IV (08:56)
[2020-05-15] MEDS: pegfilgrastim 6 mg/0.6 mL Kit (onpro) SUBCUT (10:23)
[2020-05-20 13:18] LABS: Hematocrit 39.3 % (42.0-52.0); Mean Corpuscular HGB Conc 30.5 g/dL (30.0-36.0); Mean Corpuscular Hemoglobin 28.2 pg (28.0-34.0); Mean Corpuscular Volume 92.5 fL (80-94); Mean Platelet Volume 10.7 fL (7.4-10.4); Platelet Count 91 10^3/cmm (130-400); Red Blood Count 4.25 10^6/uL (4.1-5.3); Red Cell Distribution Width 14.7 % (12.1-15.1); White Blood Count 16.7 10^3/uL (4.0-10.0)
[2020-05-20 13:40] LABS: Alanine Aminotransferase 19 U/L (0-41); Alkaline Phosphatase 151 IU/L (40-130); Anion Gap 12.6 (5-19); Aspartate Amino Transferase 14 U/L (0-40); Blood Urea Nitrogen 11 mg/dL (8-23); Calcium 8.4 mg/dL (8.5-10.5); Carbon Dioxide 27 mmol/L (22-29); Chloride 100 mmol/L (98-107); Globulin 2.4 g/dL (1.3-4.6); Glomerular Filtration Rate 85.5 mL/min (90-130); Glucose 104 mg/dL (65-115); Osmolality Calculated 282 mOsm/kg (285-295); Potassium 3.6 mmol/L (3.5-5.1); Sodium 136 mmol/L (136-145); Total Bilirubin 0.2 mg/dL (0.15-1.2); Total Protein 6.4 g/dL (6.6-8.7)
[2020-05-20 13:58] LABS: Slide Review Slide Review Perform
[2020-05-20 14:00] LABS: Absolute Eosinophils 0.5 10^3/cmm (0.0-0.7); Absolute Neutrophil 14.4 10^3/cmm (1.4-6.5); Absolute Segmented Neutrophil 10.4 10/cmm (1.6-7.1); Eosinophils 3 %; Lymphocytes 9 %; Monocytes Absolute 0.2 10^3/cmm (0.1-0.6); Platelet Estimate Decreased (Normal); Segmented Neutrophils 62 %; Total Cells Counted 100 (0-100)
== END 2020-05-24 23:59 | disposition home or self-care (01) ==
LOC: ONCMED 05:36
PROVIDERS: Internal Medicine Medical Oncology; Nurse Practitioner; PCP Nurse Practitioner Family; Referring Provider Internal Medicine Critical Care Medicine; Visit Provider Internal Medicine Hematology & Oncology
DX: Z51.11 Encounter for antineoplastic chemotherapy (principal); C34.12 Malignant neoplasm of upper lobe, left bronchus or lung; C77.1 Secondary and unspecified malignant neoplasm of intrathoracic lymph nodes; C79.31 Secondary malignant neoplasm of brain; D70.1 Agranulocytosis secondary to cancer chemotherapy; T45.1X5A Adverse effect of antineoplastic and immunosuppressive drugs, initial encounter; J44.9 Chronic obstructive pulmonary disease, unspecified; F32.9 Major depressive disorder, single episode, unspecified; I10 Essential (primary) hypertension; F43.10 Post-traumatic stress disorder, unspecified; Z87.891 Personal history of nicotine dependence
CPT/HCPCS: 36591; 80053; 85007; 85025; 96365; 96366; 96367; 96372; 96375; 96413; 96417; 99214; J1100; J1453; J1940; J2469; J2505; J3475; J3480; J7030; J7040; J7050; J9060; J9181; Q0164

== ENCOUNTER 2020-06-17 05:46 | Outpatient (RCR) | payer MEDICAID, SELFPAY ==
[2020-05-27 13:32] LABS: Basophils # 0.1 10^3/uL (0.0-0.1); Basophils % 0.6 %; Eosinophils # 0.1 10^3/uL (0.0-0.8); Eosinophils % 0.3 %; Hematocrit 35.8 % (42.0-52.0); Hemoglobin 11.2 g/dL (11.7-16.6); Lymphocytes # 2.4 10^3/uL (0.8-4.8); Lymphocytes % 10.5 %; Mean Corpuscular HGB Conc 31.3 g/dL (30.0-36.0); Mean Corpuscular Hemoglobin 28.4 pg (28.0-34.0); Mean Corpuscular Volume 90.6 fL (80-94); Mean Platelet Volume 10.3 fL (7.4-10.4); Monocytes % 4.4 %; Neutrophils # 17.38 10^3/uL (1.8-7.7); Neutrophils % 74.9 %; Nucleated Red Blood Cells # 0.1 /100WBC; Nucleated Red Blood Cells % 0.2 %; Platelet Count 95 10^3/cmm (130-400); Red Blood Count 3.95 10^6/uL (4.1-5.3); Red Cell Distribution Width 15.1 % (12.1-15.1); White Blood Count 23.2 10^3/uL (4.0-10.0)
[2020-05-27 14:05] LABS: Alanine Aminotransferase 10 U/L (0-41); Albumin Level 3.8 g/dL (3.5-5.2); Alkaline Phosphatase 164 IU/L (40-130); Anion Gap 11.4 (5-19); Aspartate Amino Transferase 14 U/L (0-40); Blood Urea Nitrogen 6 mg/dL (8-23); Calcium 8.4 mg/dL (8.5-10.5); Carbon Dioxide 30 mmol/L (22-29); Chloride 100 mmol/L (98-107); Globulin 2.8 g/dL (1.3-4.6); Glomerular Filtration Rate 114.3 mL/min (90-130); Glucose 93 mg/dL (65-115); Osmolality Calculated 283 mOsm/kg (285-295); Potassium 3.4 mmol/L (3.5-5.1); Sodium 138 mmol/L (136-145); Total Bilirubin 0.2 mg/dL (0.15-1.2); Total Protein 6.6 g/dL (6.6-8.7)
[2020-05-27 14:16] LABS: Slide Review Slide Review Perform
[2020-06-03] MEDS: sodium chloride 0.9% 250 ML 75 ML IV (08:20)
[2020-06-03 08:35] LABS: Basophils # 0.1 10^3/uL (0.0-0.1); Basophils % 0.4 %; Eosinophils % 0.2 %; Hematocrit 36.6 % (42.0-52.0); Hemoglobin 11.5 g/dL (11.7-16.6); Lymphocytes # 1.4 10^3/uL (0.8-4.8); Lymphocytes % 11.7 %; Mean Corpuscular HGB Conc 31.4 g/dL (30.0-36.0); Mean Corpuscular Hemoglobin 28.3 pg (28.0-34.0); Mean Corpuscular Volume 90.1 fL (80-94); Monocytes # 0.7 10^3/uL (0.2-0.9); Monocytes % 5.3 %; Neutrophils # 10.09 10^3/uL (1.8-7.7); Neutrophils % 81.8 %; Nucleated Red Blood Cells % 0.2 %; Platelet Count 286 10^3/cmm (130-400); Red Blood Count 4.06 10^6/uL (4.1-5.3); Red Cell Distribution Width 15.7 % (12.1-15.1); White Blood Count 12.4 10^3/uL (4.0-10.0)
[2020-06-03 09:03] LABS: Alanine Aminotransferase 8 U/L (0-41); Alkaline Phosphatase 133 IU/L (40-130); Anion Gap 13.9 (5-19); Aspartate Amino Transferase 14 U/L (0-40); Blood Urea Nitrogen 6 mg/dL (8-23); Calcium 8.8 mg/dL (8.5-10.5); Carbon Dioxide 28 mmol/L (22-29); Chloride 98 mmol/L (98-107); Globulin 3.2 g/dL (1.3-4.6); Glomerular Filtration Rate 114.3 mL/min (90-130); Glucose 109 mg/dL (65-115); Osmolality Calculated 280 mOsm/kg (285-295); Potassium 3.9 mmol/L (3.5-5.1); Sodium 136 mmol/L (136-145); Total Bilirubin 0.2 mg/dL (0.15-1.2); Total Protein 7.2 g/dL (6.6-8.7)
[2020-06-03] MEDS: HYDROcodone-acetaminophen 7.5-325 mg Tablet 1 TAB PO (11:05)
--- NOTE | 2020-06-03 11:17 | ONC FU_ITS ---
[facility] Patient Note Patient: Saman Orozco Unit #: [id number]: [id number] Dictated By: Jossue RossDate of Visit: Jun 03, 2020 Onc MED Follow-Up/Prog Note Chief Complaint: Lung cancer. History of Present Illness: Mr Orozco is a 59 year-old man with small cell lung cancer, stage IV (T4, N3, M1c). On 03/13/2020 he had presented to the emergency room with shortness of breath and hemoptysis. His CT pulmonary angiogram showed a large mass in the left upper lobe which was noted to extend into the anterior and superior mediastinum with obstruction of the left upper lobe bronchi. It was noted to surround the left main pulmonary artery and left upper lobe branches. There were additional small pulmonary nodules in the left upper lobe, the largest measuring 7.7 mm, worrisome for metastatic lesions. There were mildly prominent subcarinal and right hilar lymph nodes, below CT criteria for lymphadenopathy. There was no other obvious metastatic disease. He was seen by Dr. Feliciano on 03/19/2020 and bronchoscopy/EBUS the following day showed complete obstruction of the left upper lobe bronchus by an infiltrating mass. EBUS demonstrated mediastinal and hilar lymphadenopathy, predominantly on the left side. Endobronchial biopsies were obtained from the left upper lobe and transbronchial FNA biopsies were obtained from station 7 and left hilar lymph nodes. The endobronchial biopsy and left hilar lymph node biopsy were positive for small cell carcinoma. The FNAs were insufficient for diagnosis. Staging PET/CT on 03/22/2020 showed FDG avid left upper perihilar mass measuring 11.1 x 6.0 x 7.8 cm with SUV 16.8. There was invasion into the adjacent mediastinum. An 8 mm left apical soft tissue nodule was FDG negative. There were FDG avid mediastinal lymph nodes in the subcarinal and right paratracheal areas, maximum SUV 5.6 in the subcarinal node. There was some questionable uptake in the pancreatic tail. There was otherwise no evidence for metastatic disease outside the chest. Dr Acevedo had seen him initially on 04/04/2020. As his disease at that point appeared to be limited to the chest, he was recommended to begin chemotherapy with cisplatin/etoposide with plan to begin radiation and chemotherapy concurrently at cycle 2. He began cycle 1 chemotherapy on 04/09/2020. He tolerated it without acute toxicity. His staging brain MRI on 04/16/2020 showed enhancing metastatic lesions in the left frontal and left parietal cortex measuring 7 mm and 4 mm respectively. There was a small amount of associated edema. Additional nonenhancing lesion was noted in the posterior right frontal cortex measuring 5 mm. A diffuse weighted abnormality measuring 5 mm in the inferior left basal ganglia appeared to be consistent with subacute infarct. Follow-up CT of the chest with contrast from 05/06/2020 reported significant improvement in the left perihilar and upper lobe supra hilar mass. It measured 4.2 x 1.7 x 4.6 cm AP by transverse by craniocaudal and previously it was 11.1 x 6.0 x 7.8 cm on the prior PET CT. The left apex 8 mm nodule has improved with a small faint nodule measuring 5 mm. There is a small nodule opacity along the fissure measuring 4 mm. This was nonspecific and may be inflammatory. There is no axillary lymphadenopathy. As he had significant improvement we will continue with cycle 2 chemotherapy and plan for radiation after his chemotherapy is finished per Dr. Acevedo's instructions. Current plan is 4-6 cycles of cis-mcgrath etoposide. He will require Neulasta support as he was significantly neutropenic with cycle 1. His ANC on day 8 was 8900 and on day 15 he was at 1700 and subsequently cycle 2-day 1 he was 1100. Because of the neutropenia his cycle 2 was delayed. Follow-up CT of the chest with contrast from 05/06/2020 reported significant interval improvement in the left perihilar and suprahilar mass with invasion into the mediastinum. The mass measured 4.2 x 1.7 x 4.6 cm previously it was 11.1 x 6.0 x 7.8 cm on the prior PET CT. The left apex 8 mm nodule has improved with a small faint nodule measuring 5 mm. Small nodular opacity along the fissure measuring 4 mm was nonspecific and may be inflammatory. The previously described mediastinal adenopathy has resolved. Residual soft tissue thickening along the left hilum. No axillary lymphadenopathy. Improved postobstructive pneumonia involving the lingula and second segmental atelectasis. He was able to resume cycle 2 Cisplatin/etoposide with Neulasta support on 05/13/2020. Mr. Orozco is here today for follow-up. He states overall he feels okay. He states he is having more shortness of breath with exertion. He states that he if he gets just gets up he feels like he cannot get enough air. He denies any hemoptysis. He denies any pain with inspiration. He states he is having more shortness of breath in general. He denies any wheezing. He denies any fever or chills. He states his appetite is good his energy is marginal. He is somewhat tearful today as his is in the hospital with a COPD flare. Its pretty bad this time . He is concerned that she may not need to come home. He states if something happens to her he does not have much reason to keep doing treatments. His support system other than his is his 3 dogs. We discussed him taking care of his dogs and he did seem to perk up some of this. He is not indicating any intention to harm himself or others. He does states he is not close to his kids or friends. He denies any constipation or diarrhea. He denies any neuropathy or hearing changes at present. His ECOG is 1. Past Medical History: Chronic obstructive pulmonary disease Degenerative disease of the spine Depression Hypertension Post traumatic stress disorder Past Surgical History: Cervical spine surgery x 2 which included cervical fusion Porth catheter placement dr. barrera Tonsillectomy Bronchoscopy with endobronchial biopsy and with EBUS/transbronchial FNA lymph node biopsies in 2020 Allergies: Bactrim DS, fentaNYL, and Sulfa Antibiotics. Medications: ARIPiprazole (sensor) 1 Tablet (of 30 mg) Oral daily Bevespi Aerosphere 2 Puff(s) (of 9-4.8 mcg/act) Aerosol Inhalation PRN Lisinopril 1 Tablet (of 20 mg) Oral daily PARoxetine HCl 1 Tablet (of 10 mg) Oral at bedtime Ventolin HFA 2 Puff(s) (of 108 (90 base) mcg/act) Aerosol, solution Inhalation b.i.d. Family History: Father had Hodgkin's lymphoma and dementia. He at age 71. Mother with brain cancer at age 68. A sister age 64, apparently of COPD and congestive heart failure. Two other sisters are in good health. Social History: Mr. Orozco is . Mr. Orozco quit smoking less than one year ago but had smoked 2.0 packs/day for 50 years. He has no history of drinking. He has indicated exposure to the following products: cigarettes and recreational drug use. Mr. Orozco reports the following support systems: lives with spouse, significant other, family, or friends. He has a history of smoking 2 packs of cigarettes daily for approximately 50 years. He quit smoking 1 week ago. He had some alcohol use when he was younger. He quit drinking in 2003. His medical records indicate that he has had some substance abuse. Review Of Symptoms: Constitutional Denies fevers, chills, night sweats, excessive fatigue or weight loss. Allergic/Immunologic No reactions. Eyes Denies significant visual changes. No diplopia. No amaurosis. ENMT Denies changes in hearing, sore throat, mouth sores, difficulty or changes in swallowing ability, and/or sinus drainage. Hematologic/Lymphatic Denies easy bruising or bleeding. The patient denies any tender or palpable lymph nodes. Respiratory He states he is having more shortness of breath with minimal exertion. He states even if he gets up to do much of anything he is more short of breath. He denies any hemoptysis. He states he has occasional cough but it is about the same as it always has been. Cardiovascular Denies anginal chest pain, palpitations or orthopnea. Gastrointestinal Denies nausea, vomiting, diarrhea, GI bleeding, or constipation. Denies change in bowel habits and/or stool color, no heartburn or early satiety. Genitourinary (M) Denies hematuria, dysuria, increased frequency, urgency, hesitancy or incontinence. Musculoskeletal Denies joint pain, swelling or redness. No decreased range of motion. Integumentary Denies chronic rashes, inflammation, ulcerations or skin changes. Neurologic Denies headache, blurred vision, and no areas of focal weakness or numbness. Normal gait. No sensory problems. Psychiatric Denies insomnia, depression, jose or mood swings. Vital Signs: Performed on Jun 03, 2020 10:03 Height - 64.00 in Weight - 160.8 lbs (LOW) BSA - 1.78 sq.m BMI - 27.60 Temperature - 98.1 F (LOW) Pulse - 84 /min Respiration - 18 /min BP - 162/102 mm(hg) (HIGH) O2 Sat - 98 % Pain - 8,1 - No physically strenuous activity, but ambulatory and able to carry out light or sedentary work (e.g. office work, light house work). (ECOG) Physical Examination: Constitutional Alert, oriented, no acute distress. Skin pink, warm and dry. Head Normocephalic; atraumatic. Eyes Conjunctivae and sclerae are clear and without icterus. Pupils are reactive and equal. Neck Supple without masses or thyromegaly. No jugular venous distension. Hematologic/Lymphatic No petechiae or purpura. No tender or palpable lymph nodes in the cervical or supraclavicular areas. Respiratory Lungs are diminished to auscultation without rhonchi or wheezing. Cardiovascular Regular rate and rhythm of heart without murmurs,clicks, gallops or rubs. Abdomen Non-tender, non-distended, no masses or ascites. Back/Spine Non-tender to palpation. Extremities No visible deformities, no cyanosis, clubbing or edema. Musculoskeletal No tenderness or swelling, normal range of motion without obvious weakness. Integumentary No rashes or lesions. Neurologic No sensory or motor deficits, normal cerebellar function, normal gait. Psychiatric Alert and oriented times three. Coherent speech. Verbalizes understanding of our discussions today. Laboratory:Test performed on Jun 03, 2020 08:10 Sodium 136 mmol/L Potassium 3.9 mmol/L Chloride 98 mmol/L CO2 28 mmol/L Anion Gap 13.9 BUN 6 mg/dL Creatinine 0.7 mg/dL Cr Clearance (Est) 108.3900 mL/min eGFR 114.3 mL/min Glucose 109 mg/dL Osmolality - Calculated 280 mOsm/kg Calcium 8.8 mg/dL Protein, Total 7.2 g/dL Albumin 4.0 g/dL Globulin 3.2 g/dL Bilirubin, Total 0.2 mg/dL ALT (SGPT) 8 U/L AST (SGOT) 14 U/L Alkaline Phosphatase 133 IU/L WBC 12.4 10 3/uL RBC 4.06 10 6/uL HGB 11.5 g/dL HCT 36.6 % MCV 90.1 fL MCH 28.3 pg MCHC 31.4 g/dL RDW 15.7 % Platelet Count 286 10 3/cmm MPV 9.0 fL Neutrophils 10.09 10 3/uL Lymphocytes 1.4 10 3/uL Monocytes 0.7 10 3/uL Eosinophils 0.0 10 3/uL Basophils 0.1 10 3/uL Neutrophil % 81.8 % Lymphocyte % 11.7 % Monocyte % 5.3 % Eosinophil % 0.2 % Basophils % 0.4 % NRBC % 0.2 % Test performed on May 20, 2020 13:00 Manual Segs % 62 % Manual Bands % 24.0 % Manual Lymphs % 9 % Atypical Lymphs % 0.0 % Total Cells Counted 100 Manual Monos % 1.0 % Manual Eos % 3 % Manual Basos % 0.0 % Metamyelocytes % 1.0 % CBC Slide Review Slide Review Perform Platelet Estimate Decreased Manual Segs Abs 10.4 10/cmm Manual Bands Abs 4.0 10 3/cmm Manual Neutrophils Abs 14.4 10 3/cmm Manual Monocytes Abs 0.2 10 3/cmm Manual Eosinophils Abs 0.5 10 3/cmm Manual Basophils Abs 0.0 10 3/cmm Test performed on Apr 04, 2020 09:29 Manual Diff NS OF [id number] Impression: 1. Patient with newly diagnosed small cell carcinoma involving the upper lobe of the left lung. There is associated left upper lobe bronchial occlusion. By clinical evaluation his disease appeared to be TMN stage IIIC (T4, N3, M0), but subsequently determined to be stage IV (M1c) with several metastatic lesions reported on brain MRI. 2. He underwent bronchoscopy/EBUS on 03/20/2020. His other medical illnesses include: 3. Hypertension. 4. COPD. 5. Degenerative disease of the cervical spine. 6. Posttraumatic stress disorder and depression. He began cycle 1 of chemotherapy with cisplatin/etoposide on 04/09/2020. He had significant weakness/fatigue for 3 to 4 days after treatment, and he had moderately severe neutropenia with a alex ANC of approximately 1000. He otherwise tolerated the treatment well. He has not been evaluated for response, but his staging MRI did show several small metastatic lesions in the brain. Follow-up CT of the chest with contrast from May 06, 2020 reported significant improvement in the left perihilar and upper lobe suprahilar mass. He has had good response to 1 cycle of chemotherapy. He will proceed with cycle 2 chemotherapy and the current plan will be to do radiation after completion of 4-6 cycles of chemotherapy. We will add Neulasta with this cycle as he has had chemo induced neutropenia to the point that cycle 2 was delayed an additional 2 weeks. His counts recovered and he did resume chemotherapy with growth factor support on 05/13/2020. Mr. Pinto will proceed with cycle 3 chemotherapy with Neulasta support today. Plan: 1. Proceed with cycle 3 cisplatin etoposide. 2. Continue aggressive antiemetics due to high risk regimen. 3. Add Neulasta on day 4 for chemotherapy-induced neutropenia with an ANC on day 22 of cycle 1 of 1100. It was 8900 on day 8 of cycle 1. The neutropenia resulted in a 2-week delay of cycle 2. The Neulastas support has allowed him to keep on time with his treatment today. 4. Labs from today were reviewed in detail and discussed with Mr. Orozco and a copy was given to him. WBC 12.4 hemoglobin 11.5 platelets 286,000 ANC is 10,000. 0.7 random glucose 109 potassium 3.9 LFTs are normal alk phos is slightly elevated at 133 but is improved from 164 on May 27, 2020.. 5. He will continue weekly interim labs via port. He may have supportive care as needed. 6. I have asked him to increase his hydrocodone from 11/25/2019 5-7.5 325 1 or 2 every 4-6 hours as needed. He is having significant pain in his shoulders and neck from degenerative disc disease of the cervical spine. I have asked him to call us prior to his 3-week follow-up if this is not controlling his pain. He may need more aggressive pain medication such as a time-released option. He states he will call us prior to his appointment if his pain is not improving. 7. We will plan to see him back in 3 weeks with CBC CMP for cycle chemotherapy. The current plan per Dr. Acevedo's recent communication note is to do 4-6 cycles of chemotherapy then consider radiation. I have asked repeat his CT of the chest with contrast given his worsening shortness of breath since his last visit. 8. Mr. Orozco was instructed to contact us in the interim should questions or problems arise. 9. We will also plan a 2-month interval restaging brain MRI and will defer radiation for the brain metastasis as long as they are adequately controlled with chemotherapy. His last MRI with and without contrast was on April 16, 2020. I have requested the repeat brain MRI to be done just prior to his next follow-up in 3 weeks. Signed By: Jossue Ross-, [facility] [place] Acevedo MD <<Signature on File>>
[2020-06-03] MEDS: FUROsemide 10 mg/mL SDV 2mL 20 MG IV (12:48)
[2020-06-03] MEDS: sodium chlor 0.9% + KCl 20 mEq 20 MEQ/1,000 ML BAG 1000 MEQ IV (13:50)
[2020-06-04] MEDS: sodium chloride 0.9% 250 ML 999 ML IV (10:20)
[2020-06-04] MEDS: prochlorperazine 10 mg Tablet PO (10:20)
[2020-06-05] MEDS: prochlorperazine 10 mg Tablet PO (10:15)
[2020-06-05] MEDS: pegfilgrastim 6 mg/0.6 mL Kit (onpro) SUBCUT (11:40)
[2020-06-05] MEDS: sodium chloride 0.9% 250 ML 75 ML IV (13:59)
[2020-06-11 09:36] LABS: Basophils % 0.1 %; Eosinophils % 0.1 %; Hematocrit 33.7 % (42.0-52.0); Hemoglobin 10.3 g/dL (11.7-16.6); Lymphocytes # 1.1 10^3/uL (0.8-4.8); Lymphocytes % 7.2 %; Mean Corpuscular HGB Conc 30.6 g/dL (30.0-36.0); Mean Corpuscular Hemoglobin 28.3 pg (28.0-34.0); Mean Corpuscular Volume 92.6 fL (80-94); Mean Platelet Volume 9.8 fL (7.4-10.4); Monocytes # 0.6 10^3/uL (0.2-0.9); Monocytes % 4.4 %; Neutrophils # 12.78 10^3/uL (1.8-7.7); Neutrophils % 87.6 %; Nucleated Red Blood Cells % 0 %; Platelet Count 102 10^3/cmm (130-400); Red Blood Count 3.64 10^6/uL (4.1-5.3); White Blood Count 14.6 10^3/uL (4.0-10.0)
[2020-06-11 09:57] LABS: Alanine Aminotransferase 13 U/L (0-41); Albumin Level 3.9 g/dL (3.5-5.2); Alkaline Phosphatase 162 IU/L (40-130); Anion Gap 10.9 (5-19); Aspartate Amino Transferase 10 U/L (0-40); Blood Urea Nitrogen 9 mg/dL (8-23); Calcium 8.5 mg/dL (8.5-10.5); Carbon Dioxide 28 mmol/L (22-29); Chloride 102 mmol/L (98-107); Globulin 2.2 g/dL (1.3-4.6); Glomerular Filtration Rate 136.5 mL/min (90-130); Glucose 97 mg/dL (65-115); Osmolality Calculated 283 mOsm/kg (285-295); Potassium 3.9 mmol/L (3.5-5.1); Sodium 137 mmol/L (136-145); Total Bilirubin 0.3 mg/dL (0.15-1.2); Total Protein 6.1 g/dL (6.6-8.7)
[2020-06-11 10:21] LABS: Slide Review Slide Review Perform
--- NOTE | 2020-06-16 09:00 | MR_ITS ---
WS: [id number] MRI HEAD WITH CONTRAST TECHNIQUE: Sagittal T1, T2 axial, T2 axial FLAIR, axial susceptibility weighted imaging, axial diffus ion weighted images, and coronal T2 images were obtained. Pre and post-T1 axial and post T1 coronal i mages. ADC and FSPGR images. CLINICAL INFORMATION: METASTATIC LUNG CANCER WITH BRAIN METS COMPARISON: MRI April 16, 2020 FINDINGS: Previously described enhancing lesions in the left frontal lobe laterally and left parietal lobe post eriorly have essentially resolved. No abnormal enhancement in these areas today. Previously described edema in these areas is essentially resolved. No new enhancing lesions today. Again seen is the T2 hyperintense nonenhancing lesions involving the inferior left basal ganglia and right posterior frontal lobe laterally involving the cortex. The inferior basal ganglia lesion is sli ghtly larger today measuring 6.6 mm compared to 5 mm previous. No abnormal gadolinium enhancement. Fi ndings may represent late subacute nonenhancing infarcts. Metastatic disease not entirely excluded. No other significant interval changes. No hemosiderin on the susceptibility weighted images. Mild sma ll vessel changes. Mild parenchymal volume loss. Normal posterior fossa. Normal vascular flow voids a t the skull base. No extra-axial fluid collections. Mild mucosal thickening in the ethmoid air cells. Paranasal sinuses and mastoid air cells are well aerated. No abnormal gadolinium enhancement. Normal optic chiasm and pituitary infundibulum. MR/MR head wo/w con [id number] IMPRESSION: 1. Previously described enhancing metastatic lesions have essentially resolved with no abnormal gadolinium enhancement today. Improved surrounding T2 signal abnormality. 2. T2 hyperintense nonenhancing lesions are again seen involving the left late ral basal ganglia and right posterior frontal lobe laterally with no abnormal g adolinium enhancement. The basal ganglia lesion is slightly larger today. These may represent late subacute infarcts however Metastatic disease not entirely e xcluded. Recommend 2-3 month interval follow-up.
[2020-06-17 11:41] LABS: Basophils # 0.1 10^3/uL (0.0-0.1); Basophils % 0.6 %; Eosinophils # 0.1 10^3/uL (0.0-0.8); Eosinophils % 0.3 %; Hematocrit 33.9 % (42.0-52.0); Hemoglobin 10.5 g/dL (11.7-16.6); Lymphocytes # 1.6 10^3/uL (0.8-4.8); Lymphocytes % 9.4 %; Mean Corpuscular Hemoglobin 28.5 pg (28.0-34.0); Mean Corpuscular Volume 92.1 fL (80-94); Mean Platelet Volume 9.7 fL (7.4-10.4); Monocytes # 0.7 10^3/uL (0.2-0.9); Neutrophils # 13.54 10^3/uL (1.8-7.7); Neutrophils % 77.8 %; Nucleated Red Blood Cells % 0.2 %; Platelet Count 147 10^3/cmm (130-400); Red Blood Count 3.68 10^6/uL (4.1-5.3); Red Cell Distribution Width 17.2 % (12.1-15.1); White Blood Count 17.4 10^3/uL (4.0-10.0)
[2020-06-17 11:59] LABS: Alanine Aminotransferase 16 U/L (0-41); Alkaline Phosphatase 152 IU/L (40-130); Anion Gap 13.3 (5-19); Aspartate Amino Transferase 16 U/L (0-40); Blood Urea Nitrogen 5 mg/dL (8-23); Calcium 8.6 mg/dL (8.5-10.5); Carbon Dioxide 28 mmol/L (22-29); Chloride 94 mmol/L (98-107); Globulin 2.5 g/dL (1.3-4.6); Glomerular Filtration Rate 85.5 mL/min (90-130); Glucose 143 mg/dL (65-115); Osmolality Calculated 274 mOsm/kg (285-295); Potassium 3.3 mmol/L (3.5-5.1); Sodium 132 mmol/L (136-145); Total Bilirubin 0.2 mg/dL (0.15-1.2); Total Protein 6.5 g/dL (6.6-8.7)
[2020-06-17 12:16] LABS: Slide Review Slide Review Perform
== END 2020-06-23 23:59 | disposition home or self-care (01) ==
LOC: ONCMED 05:46
PROVIDERS: Internal Medicine Hematology & Oncology; Nurse Practitioner; PCP Nurse Practitioner Family; Referring Provider Internal Medicine Critical Care Medicine; Visit Provider Internal Medicine Medical Oncology
DX: Z51.11 Encounter for antineoplastic chemotherapy (principal); C34.12 Malignant neoplasm of upper lobe, left bronchus or lung; C79.31 Secondary malignant neoplasm of brain; D70.1 Agranulocytosis secondary to cancer chemotherapy; T45.1X5A Adverse effect of antineoplastic and immunosuppressive drugs, initial encounter; I10 Essential (primary) hypertension; J44.9 Chronic obstructive pulmonary disease, unspecified; M50.30 Other cervical disc degeneration, unspecified cervical region; F43.12 Post-traumatic stress disorder, chronic; F33.2 Major depressive disorder, recurrent severe without psychotic features; F12.20 Cannabis dependence, uncomplicated; F17.210 Nicotine dependence, cigarettes, uncomplicated; Z79.899 Other long term (current) drug therapy
CPT/HCPCS: 99214; 36591; 70553; 80053; 85025; 96366; 96367; 96372; 96375; 96413; 96417; A9579; J1100; J1453; J1940; J2469; J2505; J3475; J3480; J7030; J7040; J7050; J9060; J9181; Q0164

== ENCOUNTER 2020-06-18 08:01 | Outpatient (CLI) | payer MEDICAID, SELFPAY ==
--- NOTE | 2020-06-18 08:06 | CT_ITS ---
WS: [id number] CT CHEST TECHNIQUE: Contrast enhanced CT of the chest with coronal and sagittal reformatted images. CLINICAL INFORMATION: LUNG CANCER COMPARISON: CT chest May 06, 2020 DLP: 748.[address] scans at [facility] use at least one of these dose optimization techniques: automat ed exposure control; mA and/or kV adjustment per patient size (includes targeted exams where dose is matched to clinical indication); or iterative reconstruction. FINDINGS: Previously described left perihilar and upper lobe suprahilar mass with mediastinal invasion has sign ificantly improved and nearly resolved with a small amount of residual soft tissue thickening along t he mediastinum and left hilum. Improved previously described FDG-positive mediastinal lymph nodes in the subcarinal and right peritracheal territories. No progressed lymphadenopathy. Residual postobstru ctive atelectasis/subsegmental atelectasis in the lingula. Stable small faint nodule measuring 5 mm. Small nodular opacity along the fissure measuring 4 mm. Coronary calcification. Mild diffuse fatty infiltration of the liver. Adrenal glands are normal. Sma ll esophageal hiatal hernia. Hypertrophic changes thoracic spine. Normal caliber thoracic aorta. Norm al axillary lymph nodes. Centrilobular emphysematous changes CT/CT chest w con* [id number] IMPRESSION: 1. Significant interval improvement in the left perihilar and suprahilar mass w ith mild residual soft tissue thickening. 2. Previously described mediastinal adenopathy has essentially resolved. 3. No axillary lymphadenopathy. 4.Unchanged postobstructive pneumonia involving the lingula with subsegmental a telectasis. 5. Stable small faint nodule measuring 5 mm. 6. Stable small ovoid opacity along the fissure measuring 4 mm. 7. No other significant interval changes.
[2020-06-18] MEDS: iohexol 300 mg/mL 100 mL Btl IV (08:24)
== END 2020-06-18 08:02 | disposition home or self-care (01) ==
LOC: RADWPI 08:04
PROVIDERS: PCP Nurse Practitioner Family; Visit Provider Nurse Practitioner
DX: C34.90 Malignant neoplasm of unspecified part of unspecified bronchus or lung (principal)
CPT/HCPCS: 71260; Q9967

== ENCOUNTER 2020-06-26 05:15 | Outpatient (RCR) | payer MEDICAID, SELFPAY ==
[2020-06-24] MEDS: sodium chloride 0.9% 250 ML IV (08:35)
[2020-06-24] MEDS: palonosetron 0.25 mg/5 mL SDV IV (08:35)
[2020-06-24 08:48] LABS: Basophils % 0.3 %; Eosinophils % 0.4 %; Hematocrit 35.7 % (42.0-52.0); Hemoglobin 11.2 g/dL (11.7-16.6); Lymphocytes # 1.6 10^3/uL (0.8-4.8); Lymphocytes % 15.1 %; Mean Corpuscular HGB Conc 31.4 g/dL (30.0-36.0); Mean Corpuscular Hemoglobin 28.9 pg (28.0-34.0); Mean Corpuscular Volume 92.2 fL (80-94); Mean Platelet Volume 9.1 fL (7.4-10.4); Monocytes # 0.6 10^3/uL (0.2-0.9); Monocytes % 5.4 %; Neutrophils # 8.15 10^3/uL (1.8-7.7); Neutrophils % 77.8 %; Nucleated Red Blood Cells % 0 %; Platelet Count 305 10^3/cmm (130-400); Red Blood Count 3.87 10^6/uL (4.1-5.3); Red Cell Distribution Width 17.2 % (12.1-15.1); White Blood Count 10.5 10^3/uL (4.0-10.0)
[2020-06-24 09:08] LABS: Alanine Aminotransferase 8 U/L (0-41); Albumin Level 4.1 g/dL (3.5-5.2); Alkaline Phosphatase 122 IU/L (40-130); Anion Gap 13.6 (5-19); Aspartate Amino Transferase 11 U/L (0-40); Blood Urea Nitrogen 13 mg/dL (8-23); Carbon Dioxide 28 mmol/L (22-29); Chloride 98 mmol/L (98-107); Globulin 2.9 g/dL (1.3-4.6); Glucose 162 mg/dL (65-115); Osmolality Calculated 286 mOsm/kg (285-295); Potassium 3.6 mmol/L (3.5-5.1); Sodium 136 mmol/L (136-145); Total Bilirubin 0.2 mg/dL (0.15-1.2)
[2020-06-24] MEDS: FUROsemide 10 mg/mL SDV 2mL 20 MG IV (12:28)
[2020-06-24] MEDS: sodium chlor 0.9% + KCl 20 mEq 20 MEQ/1,000 ML BAG 1000 MEQ IV (13:30)
[2020-06-24] MEDS: ipratropium-albuterol 3 mL Neb INHALATION (15:10)
[2020-06-25] MEDS: sodium chloride 0.9% 250 ML 75 ML IV (09:40)
[2020-06-25] MEDS: prochlorperazine 10 mg Tablet PO (09:42)
[2020-06-26] MEDS: prochlorperazine 10 mg Tablet PO (09:30)
[2020-06-26] MEDS: sodium chloride 0.9% 250 ML 75 ML IV (09:30)
--- NOTE | 2020-06-27 13:59 | ONC FU_ITS ---
Dr. Acevedo Patient Follow-Up Note Patient: Saman Orozco Unit #: [id number]: 1960 Dicatated By: Rancho Acevedo M.D.Date of Visit:Jun 24, 2020 Onc Med Follow-up/Prog Note Chief Complaint: Lung cancer. History of Present Illness: This is a 59 year-old man with small cell lung cancer, stage IV (T4, N3, M1c). On 03/13/2020 he had presented to the emergency room with shortness of breath and hemoptysis. His CT pulmonary angiogram showed a large mass in the left upper lobe which was noted to extend into the anterior and superior mediastinum with obstruction of the left upper lobe bronchi. It was noted to surround the left main pulmonary artery and left upper lobe branches. There were additional small pulmonary nodules in the left upper lobe, the largest measuring 7.7 mm, worrisome for metastatic lesions. There were mildly prominent subcarinal and right hilar lymph nodes, below CT criteria for lymphadenopathy. There was no other obvious metastatic disease. He was seen by Dr. Feliciano on 03/19/2020 and bronchoscopy/EBUS the following day showed complete obstruction of the left upper lobe bronchus by an infiltrating mass. EBUS demonstrated mediastinal and hilar lymphadenopathy, predominantly on the left side. Endobronchial biopsies were obtained from the left upper lobe and transbronchial FNA biopsies were obtained from station 7 and left hilar lymph nodes. The endobronchial biopsy and left hilar lymph node biopsy were positive for small cell carcinoma. The FNAs were insufficient for diagnosis. Staging PET/CT on 03/22/2020 showed FDG avid left upper perihilar mass measuring 11.1 x 6.0 x 7.8 cm with SUV 16.8. There was invasion into the adjacent mediastinum. An 8 mm left apical soft tissue nodule was FDG negative. There were FDG avid mediastinal lymph nodes in the subcarinal and right paratracheal areas, maximum SUV 5.6 in the subcarinal node. There was some questionable uptake in the pancreatic tail. There was otherwise no evidence for metastatic disease outside the chest. I had seen him initially on 04/04/2020. As his disease at that point appeared to be limited to the chest, he was recommended to begin chemotherapy with cisplatin/etoposide with plan to begin radiation and chemotherapy concurrently at cycle 2. He began cycle 1 chemotherapy on 04/09/2020. He tolerated it without acute toxicity. His staging brain MRI on 04/16/2020 showed enhancing metastatic lesions in the left frontal and left parietal cortex measuring 7 mm and 4 mm respectively. There was a small amount of associated edema. Additional nonenhancing lesion was noted in the posterior right frontal cortex measuring 5 mm. A diffuse weighted abnormality measuring 5 mm in the inferior left basal ganglia appeared to be consistent with subacute infarct. Repeat chest CT on 05/06/2020 showed significant interval improvement in the left perihilar and suprahilar mass but with residual soft tissue measuring 4.2 x 1.7 x 4.6 cm. The previously described mediastinal adenopathy had essentially resolved. There was improved postobstructive pneumonia involving the lingula. With those findings, he proceeded with cycle 2 of cisplatin/etoposide on 05/13/2020 and with cycle 3 on 06/03/2020. Repeat head MRI on 06/16/2020 showed resolution of previously described enhancing metastatic lesions and improved surrounding T2 signal abnormality. Nonenhancing lesions were again noted in the left lateral basal ganglia and right posterior frontal lobe laterally. The basal ganglia lesion was noted to be slightly larger. His repeat chest CT on 06/18/2020 again reported significant interval improvement in the left perihilar and suprahilar mass, but with mild residual soft tissue thickening. Previously described mediastinal adenopathy was again noted to have essentially resolved. There was unchanged postobstructive pneumonia involving the lingula. He is seen for a follow-up visit. His energy is somewhat variable, some days he still feels wore out. He is able to do light work. His ECOG score is 1. Appetite also is variable. His weight is stable. He has not had fever or night sweats, but he sometimes feels hot. He is sometimes short of breath and he sometimes has cough, but it is nonproductive. He is having significant sinus congestion and drainage. He has just occasional nausea. He has no other GI or complaints. He has no significant joint or bone pain. He has no focal neurologic symptoms. Medications: ARIPiprazole (sensor) 1 Tablet (of 30 mg) Oral daily, Bevespi Aerosphere 2 Puff(s) (of 9-4.8 mcg/act) Aerosol Inhalation PRN, Lisinopril 1 Tablet (of 20 mg) Oral daily, PARoxetine HCl 1 Tablet (of 10 mg) Oral at bedtime, Ventolin HFA 2 Puff(s) (of 108 (90 base) mcg/act) Aerosol, solution Inhalation b.i.d. Allergies: Bactrim DS, fentaNYL, and Sulfa Antibiotics. Review of Systems: Constitutional - His energy is better, but some days he still feels wore out. Appetite is variable. His weight is stable. He has not had fever or night sweats, but he sometimes feels hot at night. ECOG score is 1, ENMT - He is having significant sinus congestion/drainage. No mouth sores. No sore throat or difficulty swallowing, Hematologic/Lymphatic - He has easy bruising, Respiratory - He sometimes has shortness of breath, and he sometimes has cough, but it is nonproductive. No pleuritic pain or hemoptysis, Cardiovascular - No angina pain. No palpitations, Gastrointestinal - He occasionally has nausea. No heartburn or acid reflux. No diarrhea or constipation. No blood in the stool or black stools, Genitourinary (M) - No dysuria or hematuria. No urinary frequency. No urgency or incontinence, Musculoskeletal - No joint or bone pain, Integumentary - No skin rash, Neurologic - No headache. He sometimes has dizziness. No numbness or tingling. No other focal neurologic symptoms, Psychiatric - He has anxiety and depression. No insomnia. Vital Signs: Performed on Jun 24, 2020 09:34 Height - 64.00 in Weight - 158.6 lbs (LOW) BSA - 1.77 sq.m BMI - 27.22 Temperature - 98.6 F Pulse - 82 /min Respiration - 18 /min BP - 166/106 mm(hg) (HIGH) O2 Sat - 97 % Pain - 6 Physical Examination: Constitutional - He still appears somewhat weak generally, Eyes - Sclerae nonicteric. Conjunctivae clear, ENMT - No lesions noted in the oral cavity, Hematologic/Lymphatic - No cervical, clavicular, or axillary adenopathy, Respiratory - Lungs sound clear with diminished air movement bilaterally, Cardiovascular - Heart rhythm is regular. There is no murmur, gallop, or rub noted, Abdomen - Soft. Liver and spleen are not enlarged. There is no abdominal mass or ascites noted and there is no inguinal adenopathy, Extremities - No edema, Neurologic - No focal neurologic deficits noted. Lab/Imaging: Test performed on Jun 24, 2020 08:25 Sodium 136 mmol/L Potassium 3.6 mmol/L Chloride 98 mmol/L CO2 28 mmol/L Anion Gap 13.6 BUN 13 mg/dL Creatinine 0.8 mg/dL Cr Clearance (Est) 94.8400 mL/min eGFR 98.0 mL/min Glucose 162 mg/dL Osmolality - Calculated 286 mOsm/kg Calcium 9.0 mg/dL Protein, Total 7.0 g/dL Albumin 4.1 g/dL Globulin 2.9 g/dL Bilirubin, Total 0.2 mg/dL ALT (SGPT) 8 U/L AST (SGOT) 11 U/L Alkaline Phosphatase 122 IU/L WBC 10.5 10 3/uL RBC 3.87 10 6/uL HGB 11.2 g/dL HCT 35.7 % MCV 92.2 fL MCH 28.9 pg MCHC 31.4 g/dL RDW 17.2 % Platelet Count 305 10 3/cmm MPV 9.1 fL Neutrophils 8.15 10 3/uL Lymphocytes 1.6 10 3/uL Monocytes 0.6 10 3/uL Eosinophils 0.0 10 3/uL Basophils 0.0 10 3/uL Neutrophil % 77.8 % Lymphocyte % 15.1 % Monocyte % 5.4 % Eosinophil % 0.4 % Basophils % 0.3 % NRBC % 0 % Impression: 1. Patient with newly diagnosed small cell carcinoma involving the upper lobe of the left lung. There is associated left upper lobe bronchial occlusion. By clinical evaluation his disease appeared to be TNM stage IIIC (T4, N3, M0), but subsequently determined to be stage IV (M1c) with several metastatic lesions reported on brain MRI. 2. He underwent bronchoscopy/EBUS on 03/20/2020. His other medical illnesses include: 3. Hypertension. 4. COPD. 5. Degenerative disease of the cervical spine. 6. Posttraumatic stress disorder and depression. He began cycle 1 of chemotherapy with cisplatin/etoposide on 04/09/2020. He had significant weakness/fatigue for 3 to 4 days after treatment, and he had moderately severe neutropenia with a alex ANC of approximately 1000. He otherwise tolerated the treatment well. His staging brain MRI did show several small metastatic lesions. A repeat chest CT on 05/06/2020 did show evidence of significant response to the chemotherapy. With those findings, he continued with cycle 2 of cisplatin/etoposide on 05/13/2020 and with cycle 3 on 06/03/2020. Restaging head MRI on 06/16/2020 showed resolution of the metastatic brain lesions and a repeat chest CT on 06/18/2020 showed evidence of further response to the chemotherapy. He continues to have somewhat marginal performance status, but he has been tolerating his chemotherapy with acceptable toxicity. Plan: He will continue with cycle 4 of cisplatin/etoposide. The dosages will remain the same. He will be scheduled for a follow-up visit in 1 month. That time he will be seen by the radiation oncologist for consolidation radiation to the chest and for whole brain radiation. Signed By: Rancho Acevedo M.D. <<Signature on File>>
== END 2020-07-24 23:59 | disposition home or self-care (01) ==
LOC: ONCMED 05:15
PROVIDERS: Internal Medicine Medical Oncology; PCP Nurse Practitioner Family; Referring Provider Internal Medicine Critical Care Medicine; Visit Provider Internal Medicine Hematology & Oncology
DX: Z51.11 Encounter for antineoplastic chemotherapy (principal); C34.12 Malignant neoplasm of upper lobe, left bronchus or lung; D70.1 Agranulocytosis secondary to cancer chemotherapy; T45.1X5A Adverse effect of antineoplastic and immunosuppressive drugs, initial encounter; I10 Essential (primary) hypertension; J44.9 Chronic obstructive pulmonary disease, unspecified; M50.30 Other cervical disc degeneration, unspecified cervical region; F43.10 Post-traumatic stress disorder, unspecified; F32.9 Major depressive disorder, single episode, unspecified; Z79.899 Other long term (current) drug therapy
CPT/HCPCS: 80053; 85025; 96366; 96367; 96375; 96413; 96417; 99214; J1100; J1453; J1940; J2469; J3475; J3480; J7030; J7040; J7050; J9060; J9181; Q0164

== ENCOUNTER → 2020-08-11 08:35 | Outpatient (BNVA) | payer MEDICAID, SELFPAY | PROVIDERS: PCP Nurse Practitioner Family; Visit Provider Nurse Practitioner | DX: F43.12 Post-traumatic stress disorder, chronic (principal); F33.2 Major depressive disorder, recurrent severe without psychotic features; F17.211 Nicotine dependence, cigarettes, in remission | CPT/HCPCS: 99214 ==

== ENCOUNTER 2020-08-22 05:34 | Outpatient (RCR) | payer MEDICAID, SELFPAY ==
[2020-07-30 08:53] LABS: Basophils % 0.3 %; Eosinophils # 0.1 10^3/uL (0.0-0.8); Eosinophils % 0.8 %; Hematocrit 35.2 % (42.0-52.0); Hemoglobin 11.1 g/dL (11.7-16.6); Lymphocytes # 1.1 10^3/uL (0.8-4.8); Lymphocytes % 11.4 %; Mean Corpuscular HGB Conc 31.5 g/dL (30.0-36.0); Mean Corpuscular Hemoglobin 30.2 pg (28.0-34.0); Mean Corpuscular Volume 95.7 fL (80-94); Mean Platelet Volume 9.6 fL (7.4-10.4); Monocytes # 0.7 10^3/uL (0.2-0.9); Monocytes % 7.2 %; Neutrophils # 7.41 10^3/uL (1.8-7.7); Neutrophils % 80.1 %; Nucleated Red Blood Cells % 0 %; Platelet Count 180 10^3/cmm (130-400); Red Blood Count 3.68 10^6/uL (4.1-5.3); Red Cell Distribution Width 15.2 % (12.1-15.1); White Blood Count 9.3 10^3/uL (4.0-10.0)
[2020-07-30 09:17] LABS: Alanine Aminotransferase 7 U/L (0-41); Alkaline Phosphatase 111 IU/L (40-130); Anion Gap 12.7 (5-19); Aspartate Amino Transferase 13 U/L (0-40); Blood Urea Nitrogen 6 mg/dL (8-23); Calcium 8.6 mg/dL (8.5-10.5); Carbon Dioxide 29 mmol/L (22-29); Chloride 98 mmol/L (98-107); Globulin 2.6 g/dL (1.3-4.6); Glomerular Filtration Rate 114.3 mL/min (90-130); Glucose 125 mg/dL (65-115); Osmolality Calculated 281 mOsm/kg (285-295); Potassium 3.7 mmol/L (3.5-5.1); Sodium 136 mmol/L (136-145); Total Bilirubin 0.3 mg/dL (0.15-1.2); Total Protein 6.6 g/dL (6.6-8.7)
--- NOTE | 2020-08-02 17:29 | ONC FU_ITS ---
Dr. Acevedo Patient Follow-Up Note Patient: Saman Orozco Unit #: [id number]: 1960 Dicatated By: Rancho Acevedo M.D.Date of Visit:Jul 30, 2020 Onc Med Follow-up/Prog Note Chief Complaint: Lung cancer. History of Present Illness: This is a 60 year-old man with small cell lung cancer, stage IV (T4, N3, M1c). On 03/13/2020 he had presented to the emergency room with shortness of breath and hemoptysis. His CT pulmonary angiogram showed a large mass in the left upper lobe which was noted to extend into the anterior and superior mediastinum with obstruction of the left upper lobe bronchi. It was noted to surround the left main pulmonary artery and left upper lobe branches. There were additional small pulmonary nodules in the left upper lobe, the largest measuring 7.7 mm, worrisome for metastatic lesions. There were mildly prominent subcarinal and right hilar lymph nodes, below CT criteria for lymphadenopathy. There was no other obvious metastatic disease. He was seen by Dr. Feliciano on 03/19/2020 and bronchoscopy/EBUS the following day showed complete obstruction of the left upper lobe bronchus by an infiltrating mass. EBUS demonstrated mediastinal and hilar lymphadenopathy, predominantly on the left side. Endobronchial biopsies were obtained from the left upper lobe and transbronchial FNA biopsies were obtained from station 7 and left hilar lymph nodes. The endobronchial biopsy and left hilar lymph node biopsy were positive for small cell carcinoma. The FNAs were insufficient for diagnosis. Staging PET/CT on 03/22/2020 showed FDG avid left upper perihilar mass measuring 11.1 x 6.0 x 7.8 cm with SUV 16.8. There was invasion into the adjacent mediastinum. An 8 mm left apical soft tissue nodule was FDG negative. There were FDG avid mediastinal lymph nodes in the subcarinal and right paratracheal areas, maximum SUV 5.6 in the subcarinal node. There was some questionable uptake in the pancreatic tail. There was otherwise no evidence for metastatic disease outside the chest. I had seen him initially on 04/04/2020. As his disease at that point appeared to be limited to the chest, he was recommended to begin chemotherapy with cisplatin/etoposide with plan to begin radiation and chemotherapy concurrently at cycle 2. He began cycle 1 chemotherapy on 04/09/2020. He tolerated it without acute toxicity. His staging brain MRI on 04/16/2020 showed enhancing metastatic lesions in the left frontal and left parietal cortex measuring 7 mm and 4 mm respectively. There was a small amount of associated edema. Additional nonenhancing lesion was noted in the posterior right frontal cortex measuring 5 mm. A diffuse weighted abnormality measuring 5 mm in the inferior left basal ganglia appeared to be consistent with subacute infarct. Repeat chest CT on 05/06/2020 showed significant interval improvement in the left perihilar and suprahilar mass but with residual soft tissue measuring 4.2 x 1.7 x 4.6 cm. The previously described mediastinal adenopathy had essentially resolved. There was improved postobstructive pneumonia involving the lingula. With those findings, he proceeded with cycle 2 of cisplatin/etoposide on 05/13/2020 and with cycle 3 on 06/03/2020. Repeat head MRI on 06/16/2020 showed resolution of previously described enhancing metastatic lesions and improved surrounding T2 signal abnormality. Nonenhancing lesions were again noted in the left lateral basal ganglia and right posterior frontal lobe laterally. The basal ganglia lesion was noted to be slightly larger. His repeat chest CT on 06/18/2020 again reported significant interval improvement in the left perihilar and suprahilar mass, but with mild residual soft tissue thickening. Previously described mediastinal adenopathy was again noted to have essentially resolved. There was unchanged postobstructive pneumonia involving the lingula. With those findings, he continued cycle 4 of cisplatin/etoposide on 06/24/2020. His other medical illnesses include hypertension, COPD, and degenerative disease of the spine. He also has posttraumatic stress disorder with depression. He has a history of smoking 2 packs of cigarettes daily for approximately 50 years. He quit smoking in March 2020. He is seen for a follow-up visit. He says he has been feeling all right, though he does complain that he is tired. ECOG score is 1. His appetite is good. He has not had fever. He does have some mild night sweating. He has just a little bit of nonproductive cough. He sometimes has shortness of breath. He does not complain of chest pain. He has had occasional episodes of nausea. He has no other GI or complaints. He does have pain in his neck, which is chronic. He does not complain of headache or dizziness, and he has no focal neurologic symptoms. He does complain that has been having more problems with his anxiety/depression, and he feels that the paroxetine is not managing it as well as it had been previously. Medications: ARIPiprazole (sensor) 1 Tablet (of 30 mg) Oral daily, Bevespi Aerosphere 2 Puff(s) (of 9-4.8 mcg/act) Aerosol Inhalation PRN, Lisinopril 1 Tablet (of 20 mg) Oral daily, PARoxetine HCl 1 Tablet (of 10 mg) Oral at bedtime, Ventolin HFA 2 Puff(s) (of 108 (90 base) mcg/act) Aerosol, solution Inhalation b.i.d. Allergies: Bactrim DS, fentaNYL, and Sulfa Antibiotics. Vital Signs: Performed on Jul 30, 2020 09:51 Height - 64.00 in Weight - 155.8 lbs (LOW) BSA - 1.76 sq.m BMI - 26.74 Performed on Jul 30, 2020 09:51 Height - 64.00 in Temperature - 98 F (LOW) Pulse - 92 /min Respiration - 18 /min BP - 181/105 mm(hg) (HIGH) O2 Sat - 98 % Pain - 7 Physical Examination: Constitutional - He looks pretty good generally, Eyes - Sclerae nonicteric. Conjunctivae clear, ENMT - No lesions noted in the oral cavity, Hematologic/Lymphatic - No cervical, clavicular, or axillary adenopathy, Respiratory - Lungs show diminished air movement bilaterally. Breath sounds are slightly coarse, and there are scattered coarse rales, Cardiovascular - Heart rhythm is regular. There is no murmur, gallop, or rub noted, Abdomen - Soft. Liver and spleen are not enlarged. There is no abdominal mass or ascites noted and there is no inguinal adenopathy, Extremities - No edema, Neurologic - No focal neurologic deficits noted. Lab/Imaging: Test performed on Jul 30, 2020 08:40 Sodium 136 mmol/L Potassium 3.7 mmol/L Chloride 98 mmol/L CO2 29 mmol/L Anion Gap 12.7 BUN 6 mg/dL Creatinine 0.7 mg/dL Cr Clearance (Est) 108.3900 mL/min eGFR 114.3 mL/min Glucose 125 mg/dL Osmolality - Calculated 281 mOsm/kg Calcium 8.6 mg/dL Protein, Total 6.6 g/dL Albumin 4.0 g/dL Globulin 2.6 g/dL Bilirubin, Total 0.3 mg/dL ALT (SGPT) 7 U/L AST (SGOT) 13 U/L Alkaline Phosphatase 111 IU/L WBC 9.3 10 3/uL RBC 3.68 10 6/uL HGB 11.1 g/dL HCT 35.2 % MCV 95.7 fL MCH 30.2 pg MCHC 31.5 g/dL RDW 15.2 % Platelet Count 180 10 3/cmm MPV 9.6 fL Neutrophils 7.41 10 3/uL Lymphocytes 1.1 10 3/uL Monocytes 0.7 10 3/uL Eosinophils 0.1 10 3/uL Basophils 0.0 10 3/uL Neutrophil % 80.1 % Lymphocyte % 11.4 % Monocyte % 7.2 % Eosinophil % 0.8 % Basophils % 0.3 % NRBC % 0 % Historic Problem List: 1. Small cell carcinoma involving the upper lobe of the left lung. There was associated left upper lobe bronchial occlusion. By clinical evaluation his disease appeared to be TNM stage IIIC (T4, N3, M0), but it was subsequently determined to be stage IV (M1c) with several metastatic lesions reported on brain MRI. 2. He underwent bronchoscopy/EBUS on 03/20/2020. 3. Hypertension. 4. COPD. 5. Degenerative disease of the cervical spine. 6. Posttraumatic stress disorder and depression. Problems Addressed with this Encounter and Plan: 1. Small cell carcinoma involving upper lobe of the left lung, stage IVB (T4, N3, M1c), with MRI evidence of several metastatic lesions in the brain. He began chemotherapy with cisplatin/etoposide on 04/09/2020. He has now completed 4 cycles of treatment. He has had evidence of response by follow-up CT and by follow-up MRI. He also has had significant improvement in his clinical status. I have discussed the case and reviewed the CT scans with Dr. Reyes, and as he has now completed 4 cycles of treatment, he will have restaging CT scans and he will be evaluated for consolidation radiation. 2. He has posttraumatic stress disorder with anxiety/depression. His symptoms have worsened somewhat, and he feels that the paroxetine is not managing it adequately at the current dosage. As such, it will be increased from 20mg to 40 mg daily. Signed By: Rancho Acevedo M.D. <<Signature on File>>
--- NOTE | 2020-08-12 12:53 | CT_ITS ---
WS: [id number] CT CHEST TECHNIQUE: Contrast enhanced CT of the chest with coronal and sagittal reformatted images. CLINICAL INFORMATION: MALIGNANT NEOPLASM OF UPPER LOBE,LEFT BRONCHUS OR LUNG, AGRA COMPARISON: CT June 08, 2020 May 06, 2020. DLP: 818.[address] scans at [facility] use at least one of these dose optimization techniques: automat ed exposure control; mA and/or kV adjustment per patient size (includes targeted exams where dose is matched to clinical indication); or iterative reconstruction. FINDINGS: Previously described left perihilar and upper lobe suprahilar mass with mediastinal invasion has esse ntially resolved with a small amount of residual soft tissue thickening along the mediastinum and lef t hilum. No new or progressed lymphadenopathy. Residual postobstructive pneumonia/subsegmental atelectasis in the lingula. Small nodular opacity along the fissure measuring 5 mm. Coronary calcification. Mild diffuse fatty infiltration of the liver. Adrenal glands are normal. Smal l esophageal hiatal hernia. Hypertrophic changes thoracic spine. Normal caliber thoracic aorta. Shantal l axillary lymph nodes. Centrilobular emphysematous changes. Postoperative changes lower cervical spi ne. CT/CT chest w con* [id number] IMPRESSION: 1. No significant interval changes since the prior examination. 2. No evidence of recurrent or progressive disease. Small amount of residual t hickening along the left hilum. 3. No mediastinal or hilar lymphadenopathy 4. Stable small ovoid opacity along the fissure measuring 5 mm. 5. Unchanged postobstructive pneumonia/compressive atelectasis in the lingula.
[2020-08-12] MEDS: iohexol 300 mg/mL 100 mL Btl IV (13:47)
--- NOTE | 2020-08-13 | CT_ITS ---
Radiation Therapy Planning CT images; total exam DLP: 406.31 mGy-cm MTDD
--- NOTE | 2020-08-18 10:45 | ONCRAD TMN_ITS ---
Radiation Oncology Treatment Management Note Patient Name: Saman Orozco Date of : 1960 Date of Service: 08/18/2020 Attending Physician: Rick Reyes M.D. Saman Orozco is a 60 year old white male diagnosed with an extensive stage ([id number]) small cell lung cancer of the left upper lobe of the lung. He received 4 cycles of carboplatin and etoposide (04/09/20-08/05/2020) under the supervision of Rancho Acevedo M.D. A complete response was reported after re-staging CT scan. The patient has received 2 Gy of a prescribed 60 Hernandez with an intensity modulated radiotherapy plan utilizing a step and shoot treatment technique. Upon review of systems, he On physical examination, the patient weighed 156 lbs. His temperature was 98.7 ???F with a blood pressure of 151/100 mmHg. The pulse was 86 bpm and his respiratory rate was 16. Oxygen saturation while breathing ambient air was 99%. There was no erythema within the treatment gomez. Continue consolidative thoracic radiotherapy as prescribed. Signed by: Dr. Rick Reyes 08/18/2020 10:44:42 AM
== END 2020-08-24 23:59 | disposition home or self-care (01) ==
LOC: ONCMED 05:34
PROVIDERS: Internal Medicine Medical Oncology; PCP Nurse Practitioner Family; Referring Provider Internal Medicine Critical Care Medicine; Visit Provider Radiology Radiation Oncology
DX: Z51.0 Encounter for antineoplastic radiation therapy (principal); C34.12 Malignant neoplasm of upper lobe, left bronchus or lung; C79.31 Secondary malignant neoplasm of brain; D70.1 Agranulocytosis secondary to cancer chemotherapy; T45.1X5A Adverse effect of antineoplastic and immunosuppressive drugs, initial encounter; I10 Essential (primary) hypertension; J44.9 Chronic obstructive pulmonary disease, unspecified; M50.30 Other cervical disc degeneration, unspecified cervical region; F43.10 Post-traumatic stress disorder, unspecified; F32.9 Major depressive disorder, single episode, unspecified; Z79.899 Other long term (current) drug therapy
CPT/HCPCS: 36591; 71260; 77300; 77301; 77334; 77338; 77386; 80053; 85025; 99214; Q9967

== ENCOUNTER 2020-09-19 05:48 | Outpatient (RCR) | payer MEDICAID, SELFPAY ==
--- NOTE | 2020-08-25 10:38 | ONCRAD TMN_ITS ---
Radiation Oncology Treatment Management Note Patient Name: Saman Orozco Date of : 1960 Date of Service: 08/25/2020 Attending Physician: Rick Reyes M.D. Saman Orozco is a 60 year old white male diagnosed with an extensive stage ([id number]) small cell lung cancer of the left upper lobe of the lung. He received 4 cycles of carboplatin and etoposide (04/09/20-08/05/2020) under the supervision of Rancho Acevedo M.D. A complete response was reported after re-staging CT scan. The patient has received 10 Gy of a prescribed 60 Hernandez with an intensity modulated radiotherapy plan utilizing a step and shoot treatment technique. Upon review of systems, he reported fatigue. On physical examination, the patient weighed 154 lbs. His temperature was 98.3 ???F with a blood pressure of 155/102 mmHg. The pulse was 103 bpm and his respiratory rate was 20. Oxygen saturation while breathing ambient air was 99%. There was no erythema within the treatment gomez. Decreased right posterior breath sounds. Continue consolidative thoracic radiotherapy as planned. Signed by: Dr. Rick Reyes 08/25/2020 10:37:37 AM
--- NOTE | 2020-08-26 12:41 | MR_ITS ---
WS: [id number] MRI HEAD WITHOUT CONTRAST TECHNIQUE: Sagittal T1, T2 axial, T2 axial FLAIR, axial and coronal T1 images, axial susceptibility w eighted imaging, axial diffusion weighted images, and coronal T2 images were obtained. CLINICAL INFORMATION: METASTATIC LUNG CANCER, NEW ONSET NECK PAIN COMPARISON: MRI 06/16/2020 and 04/16/2020 FINDINGS: Gadolinium not administered. Patient unable to complete examination due to claustrophobia. Evaluation for metastatic disease is limited with lack of IV contrast. T2 signal abnormality in the l eft lateral basal ganglia is slightly larger today measuring 8 mm compared to 6 mm previous. Addition al small focus of T2 hyperintensity in right posterior frontal lobe laterally also slightly increased in size. New tiny lesion along the right occipital horn measuring 3 to 4 mm with restricted diffusio n may represent tiny subacute infarct versus metastatic lesion. Additional tiny punctate equivocal lesions along the left periventricular white matter and posterior left frontal lobe with increased signal on diffusion. Mild white matter changes. Mild parenchymal volume loss. Normal posterior fossa. Normal vascular flow voids at the skull base. No extra-axial fluid collections. Mild mucosal thickening in the paranasal sinuses. Mastoid air cells well aerated. No hemosiderin. Normal optic chiasm and pituitary infundibul . MR/MR head wo con* [id number] IMPRESSION: 1. Gadolinium not administered due to claustrophobia. Patient unable to comple te examination. Lack of gadolinium limits assessment for metastatic disease. 2. Again seen are the left lateral basal ganglia lesion and right posterior fr ontal lobe cortical lesion both slightly more prominent compared to previous lewis spicious for metastatic disease versus less likely subacute to chronic infarcts . Recommend interval follow-up gadolinium. 3. 4 mm right periventricular occipital lesion with restricted diffusion may r epresent tiny subacute infarct or new/progressed tiny metastatic lesion. Recomm end interval follow-up with gadolinium. 4. Additional tiny punctate equivocal lesions along the left periventricular w star matter and posterior left frontal lobe with increased signal on diffusion suspicious for new tiny metastatic lesions versus less likely tiny infarcts.
--- NOTE | 2020-09-11 10:12 | ONCRAD TMN_ITS ---
Radiation Oncology Treatment Management Note Patient Name: Saman Orozco Date of : 1960 Date of Service: 09/11/2020 Attending Physician: Rick Reyes M.D. Saman Orozco is a 60 year old white male diagnosed with an extensive stage ([id number]) small cell lung cancer of the left upper lobe of the lung. He received 4 cycles of carboplatin and etoposide (04/09/20-08/05/2020) under the supervision of Rancho Acevedo M.D. A complete response was reported after re-staging CT scan. The patient has received 20 Gy of a prescribed 60 Hernandez with an intensity modulated radiotherapy plan utilizing a step and shoot treatment technique. Upon review of systems, he reported fatigue. On physical examination, the patient weighed 151 lbs. His temperature was 99.1 ???F with a blood pressure of 154/115 mmHg. The pulse was 118 bpm and his respiratory rate was 20. Oxygen saturation while breathing ambient air was 98%. There was no erythema within the treatment gomez. Decreased right posterior breath sounds. Continue consolidative thoracic radiotherapy as prescribed. Signed by: Dr. Rick Reyes 09/11/2020 10:10:56 AM
== END 2020-09-21 23:59 | disposition home or self-care (01) ==
LOC: ONCMED 05:48
PROVIDERS: PCP Nurse Practitioner Family; Referring Provider Internal Medicine Critical Care Medicine; Visit Provider Radiology Radiation Oncology
DX: Z51.0 Encounter for antineoplastic radiation therapy (principal); C34.12 Malignant neoplasm of upper lobe, left bronchus or lung; Z92.21 Personal history of antineoplastic chemotherapy
CPT/HCPCS: 70551; 77336; 77386; 96523

== ENCOUNTER 2020-10-13 05:38 | Outpatient (RCR) | payer MEDICAID, SELFPAY ==
--- NOTE | 2020-09-22 10:46 | ONCRAD TMN_ITS ---
Radiation Oncology Weekly Treatment Management Patient: Pam Davison> MR#: [id number] : 1960> Attending Physician: Dr. Chencho Fox Date of Service: 09/22/2020 Referring Physician(s) : Dr. Rancho Acevedo Diagnosis: C79.31 - Secondary malignant neoplasm of brain, Diagnosed 07/30/2020 (Active) C34.12 - Malignant neoplasm of upper lobe, left bronchus or lung, Diagnosed 04/30/2020 (Active) Stage IVB, T4, N3, M1c Radiotherapy to date: Course: Lung 2020, Treatment Site: Lung Ca, Ref. ID: [id number], Energy: 15X, Dose/Fx (cGy): 200, #Fx: , Dose Correction (cGy): 0, Total Dose (cGy): 3,400, Start Date: 08/18/2020, Elapsed Days: 35 Reason for visit: The patient is being seen today as part of their regularly scheduled weekly on treatment visits to assess for acute toxicities from radiotherapy. Review of Systems: Tired and now sleeping a lot. Living with fitony???e who has oxygen dependent COPD and he is her caregiver. Both of them have quit smoking. He does not use O2. He has noted more OCHOA. He does have a rescue inhaler which he uses on occasion. Vital Signs: Performed on 09/22/2020 10:01 AM BMI - 25.542 kg/m2 (high), Height - 64.00 in, Weight - 148.8 lbs, Temperature - 98.4 f, Pulse - 105, Respiration - 20, O2 Sat - 98 %, Pain - 8 and BP - 138/ 100 mm(hg)(/high). Physical Exam: Lungs clear with good BS, no rhonchi or wheezes. Imaging: Radiation therapy imaging related to accurate target localization (i.e. KV, MV and CBCT) was reviewed. Appropriate changes, if any, were made to ensure treatment accuracy. Plan: Good tolerance of treatment. Continue as planned. Advised that he buy a pulse oximeter to check o2 level when SOB. Signed by: Dr. Chencho Fox 09/22/2020 10:45:50 AM
--- NOTE | 2020-10-01 10:37 | ONCRAD TMN_ITS ---
Radiation Oncology Treatment Management Note Patient Name: Saman Orozco Date of : 1960 Date of Service: 10/01/2020 Attending Physician: Rick Reyes M.D. Saman Orozco is a 60 year old white male diagnosed with an extensive stage ([id number]) small cell lung cancer of the left upper lobe of the lung. He received 4 cycles of carboplatin and etoposide (04/09/20-08/05/2020) under the supervision of Rancho Acevedo M.D. A complete response was reported after re-staging CT scan. The patient has received 48 Gy of a prescribed 60 Hernandez with an intensity modulated radiotherapy plan utilizing a step and shoot treatment technique. Upon review of systems, he reported fatigue and ageusia. On physical examination, the patient weighed 146 lbs. His temperature was 98.5 ???F with a blood pressure of 112/88 mmHg. The pulse was 109 bpm and his respiratory rate was 18. Oxygen saturation while breathing ambient air was 99%. There was no erythema within the treatment gomez. Decreased right posterior breath sounds. Continue consolidative thoracic radiotherapy as prescribed. Signed by: Dr. Rick Reyes 10/01/2020 10:36:57 AM
--- NOTE | 2020-10-06 10:25 | ONCRAD TMN_ITS ---
Radiation Oncology Treatment Management Note Patient Name: Saman Orozco Date of : 1960 Date of Service: 10/06/2020 Attending Physician: Rick Reyes M.D. Saman Orozco is a 60 year old white male diagnosed with an extensive stage ([id number]) small cell lung cancer of the left upper lobe of the lung. He received 4 cycles of carboplatin and etoposide (04/09/20-08/05/2020) under the supervision of Rancho Acevedo M.D. A complete response was reported after re-staging CT scan. The patient has received 54 Gy of a prescribed 60 Hernandez with an intensity modulated radiotherapy plan utilizing a step and shoot treatment technique. Upon review of systems, he reported fatigue and continued ageusia. On physical examination, the patient weighed 148 lbs. His temperature was 98.7 ???F with a blood pressure of 141/97 mmHg. The pulse was 117 bpm and his respiratory rate was 20. Oxygen saturation while breathing ambient air was 99%. There was no erythema within the treatment gomez. Decreased right posterior breath sounds. Continue consolidative thoracic radiotherapy as planned. Signed by: Dr. Rick eRyes 10/06/2020 10:25:11 AM
== END 2020-10-22 23:59 | disposition home or self-care (01) ==
LOC: ONCMED 05:38
PROVIDERS: PCP Nurse Practitioner Family; Referring Provider Internal Medicine Critical Care Medicine; Visit Provider Radiology Radiation Oncology
DX: Z51.0 Encounter for antineoplastic radiation therapy (principal); Z45.2 Encounter for adjustment and management of vascular access device; C34.12 Malignant neoplasm of upper lobe, left bronchus or lung; C79.31 Secondary malignant neoplasm of brain
CPT/HCPCS: 77336; 77386; 96523

== ENCOUNTER 2020-11-03 10:09 | Outpatient (CLI) | payer MEDICAID, SELFPAY ==
--- NOTE | 2020-11-03 10:19 | CT_ITS ---
WS: [id number] CT HEAD TECHNIQUE: Noncontrast CT of the head obtained from the skullbase to the vertex. CLINICAL INFORMATION: DIZZINESS, FACIAL DROOP COMPARISON: MRI August 26, 2020 DLP: 992.[address] scans at [facility] use at least one of these dose optimization techniques: automat ed exposure control; mA and/or kV adjustment per patient size (includes targeted exams where dose is matched to clinical indication); or iterative reconstruction. FINDINGS: Previously described small metastatic lesions better visualized on the prior MRI examinations. There is a new left periventricular lesion measuring 5.6 mm along the left lateral ventricle. In addition, progressed low-attenuation lesion in the left frontal lobe measuring 13 mm. Recommend further evaluat ion with MRI without and with gadolinium enhancement. No intracranial hemorrhage or mass effect. No hydrocephalus. Mastoid air cells and paranasal sinuses are well aerated. Left maxillary sinusitis. CT/CT head wo con* [id number] IMPRESSION: 1. New left periventricular 5 mm lesion and new low-attenuation lesion in the left frontal lobe laterally measuring 13 mm. Recommend further evaluation with MRI without and with gadolinium enhancement. 2. Previously described small suspected metastatic lesions better seen on the prior MRI examinations. 3. No intracranial hemorrhage or hydrocephalus. 4. Left maxillary sinusitis.
== END 2020-11-03 10:10 | disposition home or self-care (01) ==
PROVIDERS: PCP Nurse Practitioner Family; Visit Provider Nurse Practitioner Family
DX: R42 Dizziness and giddiness (principal); R29.810 Facial weakness; J32.0 Chronic maxillary sinusitis; G93.9 Disorder of brain, unspecified
CPT/HCPCS: 70450

== ENCOUNTER → 2020-11-11 13:50 | Outpatient (BNVA) | payer OTHER, SELFPAY | PROVIDERS: PCP Nurse Practitioner Family; Visit Provider Nurse Practitioner | DX: F33.2 Major depressive disorder, recurrent severe without psychotic features (principal) | CPT/HCPCS: 80061; 83036 ==

== ENCOUNTER → 2020-11-14 09:44 | Outpatient (BNVA) | payer MEDICAID, SELFPAY ==
[2020-11-13 12:02] VITALS: BMI 24.3
== END ==
PROVIDERS: PCP Nurse Practitioner Family; Visit Provider Nurse Practitioner
DX: F43.12 Post-traumatic stress disorder, chronic (principal); F33.2 Major depressive disorder, recurrent severe without psychotic features
CPT/HCPCS: 99214

== ENCOUNTER 2020-11-21 06:16 | Outpatient (RCR) | payer MEDICAID, SELFPAY ==
[2020-11-13 12:02] VITALS: BMI 24.3
--- NOTE | 2020-11-21 09:37 | ONCRAD EPV_ITS ---
Radiation Oncology Follow-Up Note Patient Name: Saman Orozco Date of : 1960 Date of Service: 11/21/2020 Attending Physician: Rick Reyes M.D. Saman Orozco returned to my office this morning for a routinely scheduled follow-up appointment. He completed consolidative thoracic radiotherapy for the management of an extensive stage ([id number]) small cell lung cancer of the left upper lobe of the lung. Four cycles of carboplatin and etoposide (04/09/20-08/05/2020) were prescribed under the supervision of Rancho Acevedo M.D. A complete response was reported after re-staging CT scan. Daily radiotherapy was administered between the dates of August 18, 2020 through October 09, 2020. A prescribed dose of 60 Gy was delivered in 30 fractions encompassing 53 elapsed days. On review of systems, the patient described dizziness. On physical examination, the patient weighed 147 pounds. The temperature was 98.4???F. His blood pressure was 150/98 mmHg. The pulse was 101 bpm and the respiratory rate was 20 breaths per minute. His SpO2 while breathing ambient air was 97%. There was no erythema or desquamation of the skin in the treatment gomez. Decreased breath sounds were auscultated in the posterior lung field. There were no neurological deficits. In summary, the patient returned for a routine post radiotherapy follow-up. I will order an MRI of the brain because of recent symptoms and known untreated cranial metastases. Xanax will be prescribed on account of patient???s procedural anxiety. Signed by: Dr. Rick Reyes 11/21/2020 9:35:46 AM
== END 2020-11-21 23:59 | disposition home or self-care (01) ==
LOC: ONCMED 06:16
PROVIDERS: PCP Nurse Practitioner Family; Visit Provider Radiology Radiation Oncology
DX: F43.12 Post-traumatic stress disorder, chronic (principal); F33.2 Major depressive disorder, recurrent severe without psychotic features; Z45.2 Encounter for adjustment and management of vascular access device
CPT/HCPCS: 96523; 99024; 99214

== ENCOUNTER 2020-12-18 05:43 | Outpatient (RCR) | payer MEDICAID, SELFPAY ==
[2020-11-13 12:02] VITALS: BMI 24.3
--- NOTE | 2020-12-04 11:00 | MR_ITS ---
NOTE: Report was unsigned for reason: Ordering provider was edited. Original Signature date and time was: 12/04/2020 1443 WS: [id number] MRI HEAD WITH CONTRAST TECHNIQUE: Sagittal T1, T2 axial, T2 axial FLAIR, axial susceptibility weighted imaging, axial diffusion weighted images, and coronal T2 images were obtained. Pre and post-T1 axial and post T1 coronal images. ADC and FSPGR images. CLINICAL INFORMATION: RE-STAGING EVALUATION COMPARISON: MRI 08/26/2020 and 06/16/2020 CT November 03, 2020 FINDINGS: Numerous enhancing supra and infratentorial metastatic lesions. Metastatic disease progressed since the prior MRI August 26, 2020. Largest enhancing metastatic lesions in the left frontal lobe and deep left basal ganglia. Left frontal lobe lesion measures approximately 1.3 x 1.5 cm and left lateral basal ganglia lesion measures 1.8 x 1.4 CM. 2 left periventricular lesions the largest enhancing posteriorly measuring 9 mm. Progressed left temporal and right occipital enhancing periventricular lesions. Numerous subcentimeter enhancing cerebellar lesions.Tiny enhancing lesion in the katherin. Mild edema associated with the larger left frontal lesions. No significant mass effect or midline shift. No hydrocephalus. Small amount of hemosiderin associated with the left posterior periventricular enhancing lesion. Normal optic chiasm and pituitary infundibulum. Mild symmetric atrophy temporal lobes and hippocampal formations. Normal vascular flow voids at the skull base. Paranasal sinuses and mastoid air cells well aerated. Chronic appearing metastatic lesion involving the C2 vertebral body appears similar to previous. [facility] head [facility]/w con [id number] IMPRESSION: 1. Numerous supra and infratentorial enhancing metastatic lesions progressed f rom the prior examinations. Largest supratentorial lesions involving the left f rontal lobe and left lateral basal ganglia described above. 2. Numerous subcentimeter enhancing metastatic cerebellar lesions. 3. Several enhancing periventricular lesions involving the left lateral ventri faustino, left temporal horn, and right occipital horn 4. Tiny enhancing lesion in the katherin. 5. No hydrocephalus. 6. Chronic appearing metastatic lesion involving the C2 vertebral body appears similar to the prior studies.
[2020-12-04 11:46] LABS: Blood Urea Nitrogen 6 mg/dL (8-23); Glomerular Filtration Rate 67.8 mL/min (90-130)
[2020-12-04] MEDS: gadobenate dimeglumine 20 mL vial IV (11:54)
--- NOTE | 2020-12-09 | CT_ITS ---
Radiation Therapy Planning CT images; total exam DLP: 1189.46 mGy-cm MTDD
== END 2020-12-22 23:59 | disposition home or self-care (01) ==
LOC: ONCMED 05:43
PROVIDERS: Radiology Radiation Oncology; PCP Nurse Practitioner Family; Visit Provider Radiology Radiation Oncology
DX: Z51.0 Encounter for antineoplastic radiation therapy (principal); C34.12 Malignant neoplasm of upper lobe, left bronchus or lung; C79.31 Secondary malignant neoplasm of brain; D70.1 Agranulocytosis secondary to cancer chemotherapy; T45.1X5A Adverse effect of antineoplastic and immunosuppressive drugs, initial encounter; Z79.899 Other long term (current) drug therapy
CPT/HCPCS: 70553; 77300; 77301; 77334; 77338; 77373; 77470; 82565; 84520; 96523; A9577

== ENCOUNTER 2021-01-20 05:59 | Outpatient (RCR) | payer MEDICAID, SELFPAY ==
[2020-11-13 12:02] VITALS: BMI 24.3
--- NOTE | 2020-12-29 15:07 | ONCRAD TMN_ITS ---
Stereotactic Radiosurgery Treatment Management Note Patient Name: Saman Orozco Date of : 1960 Date of Service: 12/29/2020 Attending Physician: Rick Reyes M.D. Saman Orozco is a 60 year-old white male diagnosed extensive stage ([id number]) small cell lung cancer of the left upper lobe of the lung. He received 4 cycles of carboplatin and etoposide (04/09/20-08/05/2020) under the supervision of Rancho Acevedo M.D. A complete response was reported after re-staging CT scan. Consolidative radiotherapy was administered completing in September. An MRI ordered on December 04, 2020 identified a 1.8 cm x 1.4 cm left lateral basal ganglia lesion, a 1.3 cm x 1.5 cm frontal lobe lesion, two subcentimeter left periventricular lesions, a right cerebellar lesion, two left cerebellar lesions, a left temporal lobe lesion and a right occipital lobe lesion. The patient has received 30 Gy of a prescribed 30 Hernandez with an intensity modulated radiotherapy plan delivered utilizing stereotactic radiosurgery to the left frontal lobe lesion. Upon review of systems, he denied any neurological complaints. On physical examination, the patient weighed 150 lbs. His temperature was 98.2 ???F with a blood pressure of 108/76 mmHg. His pulse was 89 bpm and his respiratory rate was 18. Cranial nerves were intact. No muscular weakness upon testing. Tandem gait impaired with leftward deviation. SRS to the left frontal lobe lesion was completed today. He will return for the next scheduled fractionated SRS procedure. Signed by: Dr. Rick Reyes 12/29/2020 3:05:55 PM
--- NOTE | 2021-01-16 12:16 | ONCRAD TMN_ITS ---
Stereotactic Radiosurgery Treatment Management Note Patient Name: Saman Orozco Date of : 1960 Date of Service: 01/16/2021 Attending Physician: Rick Reyes M.D. Saman Orozco is a 60 year-old white male diagnosed extensive stage (O2V3H2h) small cell lung cancer of the left upper lobe of the lung. He received 4 cycles of carboplatin and etoposide (04/09/20-08/05/2020) under the supervision of Rancho Acevedo M.D. A complete response was reported after re-staging CT scan. Consolidative radiotherapy was administered completing in September. An MRI ordered on December 04, 2020 identified a 1.8 cm x 1.4 cm left lateral basal ganglia lesion, a 1.3 cm x 1.5 cm frontal lobe lesion, two subcentimeter left periventricular lesions, a right cerebellar lesion, two left cerebellar lesions, a left temporal lobe lesion and a right occipital lobe lesion. The patient has received 30 Gy of a prescribed 30 Hernandez with an intensity modulated radiotherapy plan delivered utilizing stereotactic radiosurgery to the left basal ganglia metastasis. Upon review of systems, he denied any neurological complaints. On physical examination, the patient weighed 151 lbs. His temperature was 98.2 ???F with a blood pressure of 113/70 mmHg. Cranial nerves were intact. SRS to the left basal ganglia lesion was completed today. He will return for the next scheduled SRS procedure. Signed by: Dr. Rick Reyes 01/16/2021 12:14:32 PM
--- NOTE | 2021-01-20 14:30 | ONCRAD TMN_ITS ---
Stereotactic Radiosurgery Treatment Management Note Patient Name: Saman Orozco Date of : 1960 Date of Service: 01/20/2021 Attending Physician: Rick Reyes M.D. Saman Orozco is a 60 year-old white male diagnosed extensive stage ([id number]) small cell lung cancer of the left upper lobe of the lung. He received 4 cycles of carboplatin and etoposide (04/09/20-08/05/2020) under the supervision of Rancho Acevedo M.D. A complete response was reported after re-staging CT scan. Consolidative radiotherapy was administered completing in September. An MRI ordered on December 04, 2020 identified a 1.8 cm x 1.4 cm left lateral basal ganglia lesion, a 1.3 cm x 1.5 cm frontal lobe lesion, two subcentimeter left periventricular lesions, a right cerebellar lesion, two left cerebellar lesions, a left temporal lobe lesion and a right occipital lobe lesion. The patient has received 24 Gy of a prescribed 24 Hernandez with an intensity modulated radiotherapy plan delivered utilizing stereotactic radiosurgery to the left lateral cerebellar metastasis. Upon review of systems, he described fatigue. On physical examination, the patient weighed 150 lbs. His temperature was 98.4 ???F with a blood pressure of 105/73 mmHg. His pules was 110 bpm and the respiratory rate was 20 breaths per minute. Cranial nerves were intact. SRS to the left lateral cerebellar metastatic deposit was completed today. He will return for the next scheduled SRS procedure. Signed by: Dr. Rick Reyes 01/20/2021 2:29:11 PM
== END 2021-01-21 23:59 | disposition home or self-care (01) ==
LOC: ONCMED 05:59
PROVIDERS: PCP Nurse Practitioner Family; Visit Provider Radiology Radiation Oncology
DX: Z51.0 Encounter for antineoplastic radiation therapy (principal); C79.31 Secondary malignant neoplasm of brain; C34.12 Malignant neoplasm of upper lobe, left bronchus or lung; Z92.21 Personal history of antineoplastic chemotherapy; Z45.2 Encounter for adjustment and management of vascular access device
CPT/HCPCS: 77300; 77336; 77338; 77372; 77373; 77435; 96523

== ENCOUNTER 2021-02-04 06:02 | Outpatient (RCR) | payer MEDICAID, SELFPAY ==
[2020-11-13 12:02] VITALS: BMI 24.3
--- NOTE | 2021-01-27 15:31 | ONCRAD TMN_ITS ---
Stereotactic Radiosurgery Treatment Management Note Patient Name: Saman Orozco Date of : 1960 Date of Service: 01/27/2021 Attending Physician: Rick Reyes M.D. Saman Orozco is a 60 year-old white male diagnosed extensive stage ([id number]) small cell lung cancer of the left upper lobe of the lung. He received 4 cycles of carboplatin and etoposide (04/09/20-08/05/2020) under the supervision of Rancho Acevedo M.D. A complete response was reported after re-staging CT scan. Consolidative radiotherapy was administered completing in September. An MRI ordered on December 04, 2020 identified a 1.8 cm x 1.4 cm left lateral basal ganglia lesion, a 1.3 cm x 1.5 cm frontal lobe lesion, two subcentimeter left periventricular lesions, a right cerebellar lesion, two left cerebellar lesions, a left temporal lobe lesion and a right occipital lobe lesion. The patient has received 24 Gy of a prescribed 24 Hernandez with an intensity modulated radiotherapy plan delivered utilizing stereotactic radiosurgery to the left medial cerebellar metastasis. Upon review of systems, he described fatigue and reflux associated with nausea. On physical examination, the patient weighed 148 lbs. His temperature was 98.2 ???F with a blood pressure of 115/83 mmHg. His pules was 104 bpm and the respiratory rate was 20 breaths per minute. Cranial nerves were intact. SRS to the left medial cerebellar metastatic deposit was completed today. I will decrease his glucocorticoid dose to 4 mg q am and prescribe Prilosec for dyspepsia. He will return for the next scheduled SRS procedure. Signed by: Dr. Rick Reyes 01/27/2021 3:29:20 PM
--- NOTE | 2021-01-28 15:23 | ONCRAD TMN_ITS ---
Stereotactic Radiosurgery Treatment Management Note Patient Name: Saman Orozco Date of : 1960 Date of Service: 01/28/2021 Attending Physician: Rick Reyes M.D. Saman Orozco is a 60 year-old white male diagnosed extensive stage ([id number]) small cell lung cancer of the left upper lobe of the lung. He received 4 cycles of carboplatin and etoposide (04/09/20-08/05/2020) under the supervision of Rancho Acevdeo M.D. A complete response was reported after re-staging CT scan. Consolidative radiotherapy was administered completing in September. An MRI ordered on December 04, 2020 identified a 1.8 cm x 1.4 cm left lateral basal ganglia lesion, a 1.3 cm x 1.5 cm frontal lobe lesion, two subcentimeter left periventricular lesions, a right cerebellar lesion, two left cerebellar lesions, a left temporal lobe lesion and a right occipital lobe lesion. The patient has received 24 Gy of a prescribed 24 Hernandez with an intensity modulated radiotherapy plan delivered utilizing stereotactic radiosurgery to the right cerebellar metastasis. Upon review of systems, he described fatigue. On physical examination, the patient weighed 147 lbs. His temperature was 98 ???F with a blood pressure of 97/60 mmHg. His pules was 112 bpm and the respiratory rate was 20 breaths per minute. Cranial nerves were intact. SRS to the right cerebellar metastatic deposit was completed today. He will return for the next scheduled SRS procedure. Signed by: Dr. Rick Reyes 01/28/2021 3:21:45 PM
--- NOTE | 2021-01-29 13:06 | ONCRAD TMN_ITS ---
Stereotactic Radiousurgery Treatment Management Note Patient Name: Saman Orozco Date of : 1960 Date of Service: 01/29/2021 Attending Physician: Rick Reyes M.D. Saman Orozco is a 60 year-old white male diagnosed extensive stage ([id number]) small cell lung cancer of the left upper lobe of the lung. He received 4 cycles of carboplatin and etoposide (04/09/20-08/05/2020) under the supervision of Rancho Acevedo M.D. A complete response was reported after re-staging CT scan. Consolidative radiotherapy was administered completing in September. An MRI ordered on December 04, 2020 identified a 1.8 cm x 1.4 cm left lateral basal ganglia lesion, a 1.3 cm x 1.5 cm frontal lobe lesion, two subcentimeter left periventricular lesions, a right cerebellar lesion, two left cerebellar lesions, a left temporal lobe lesion and a right occipital lobe lesion. The patient has received 24 Gy of a prescribed 24 Hernandez with an intensity modulated radiotherapy plan delivered utilizing stereotactic radiosurgery to the left temporal lobe metastasis. Upon review of systems, he described fatigue. On physical examination, the patient weighed 149 lbs. His temperature was 98.1 ???F with a blood pressure of 105/66 mmHg. His pules was 89 bpm and the respiratory rate was 20 breaths per minute. Cranial nerves were intact. SRS to the left temporal lobe metastatic deposit was completed today. He will return for the next scheduled SRS procedure. Signed by: Dr. Rick Reyes 01/29/2021 1:04:01 PM
--- NOTE | 2021-02-02 15:36 | ONCRAD TMN_ITS ---
Stereotactic Radiosurger Treatment Management Note Patient Name: Saman Orozco Date of : 1960 Date of Service: 02/02/2021 Attending Physician: Rick Reyes M.D. Saman Orozco is a 60 year-old white male diagnosed extensive stage ([id number]) small cell lung cancer of the left upper lobe of the lung. He received 4 cycles of carboplatin and etoposide (04/09/20-08/05/2020) under the supervision of Rancho Acevedo M.D. A complete response was reported after re-staging CT scan. Consolidative radiotherapy was administered completing in September. An MRI ordered on December 04, 2020 identified a 1.8 cm x 1.4 cm left lateral basal ganglia lesion, a 1.3 cm x 1.5 cm frontal lobe lesion, two subcentimeter left periventricular lesions, a right cerebellar lesion, two left cerebellar lesions, a left temporal lobe lesion and a right occipital lobe lesion. The patient has received 24 Gy of a prescribed 24 Hernandez with an intensity modulated radiotherapy plan delivered utilizing stereotactic radiosurgery to the right periventricular metastasis. Upon review of systems, he described fatigue. On physical examination, the patient weighed 148 lbs. His temperature was 98.2 ???F with a blood pressure of 151/97 mmHg. His pules was 83 bpm and the respiratory rate was 18 breaths per minute. Cranial nerves were intact. SRS to the right periventricular metastatic deposit was completed today. He will return for the next scheduled SRS procedure. Signed by: Dr. Rick Reyes 02/02/2021 3:33:56 PM
--- NOTE | 2021-02-03 15:14 | ONCRAD TMN_ITS ---
Stereotactic Radiosurgery Treatment Management Note Patient Name: Saman Orozco Date of : 1960 Date of Service: 02/03/2021 Attending Physician: Rick Reyes M.D. Saman Orozco is a 60 year-old white male diagnosed extensive stage ([id number]) small cell lung cancer of the left upper lobe of the lung. He received 4 cycles of carboplatin and etoposide (04/09/20-08/05/2020) under the supervision of Rancho Acevedo M.D. A complete response was reported after re-staging CT scan. Consolidative radiotherapy was administered completing in September. An MRI ordered on December 04, 2020 identified a 1.8 cm x 1.4 cm left lateral basal ganglia lesion, a 1.3 cm x 1.5 cm frontal lobe lesion, two subcentimeter left periventricular lesions, a right cerebellar lesion, two left cerebellar lesions, a left temporal lobe lesion and a right occipital lobe lesion. The patient has received 24 Gy of a prescribed 24 Hernandez with an intensity modulated radiotherapy plan delivered utilizing stereotactic radiosurgery to the left periventricular metastasis. Upon review of systems, he continues to describe fatigue. On physical examination, the patient weighed 147 lbs. His temperature was 96.8 ???F with a blood pressure of 102/73 mmHg. His pules was 113 bpm and the respiratory rate was 20 breaths per minute. Cranial nerves were intact. SRS to the left periventricular metastatic deposit was completed today. He will return for the next scheduled SRS procedure. Signed by: Dr. Rick Reyes 02/03/2021 3:12:47 PM
--- NOTE | 2021-02-04 14:52 | ONCRAD TMN_ITS ---
Stereotactic Radiosurgery Treatment Management Note Patient Name: Saman Orozco Date of : 1960 Date of Service: 02/04/2021 Attending Physician: Rick Reyes M.D. Saman Orozco is a 60 year-old white male diagnosed extensive stage ([id number]) small cell lung cancer of the left upper lobe of the lung. He received 4 cycles of carboplatin and etoposide (04/09/20-08/05/2020) under the supervision of Rancho Acevedo M.D. A complete response was reported after re-staging CT scan. Consolidative radiotherapy was administered completing in September. An MRI ordered on December 04, 2020 identified a 1.8 cm x 1.4 cm left lateral basal ganglia lesion, a 1.3 cm x 1.5 cm frontal lobe lesion, two subcentimeter left periventricular lesions, a right cerebellar lesion, two left cerebellar lesions, a left temporal lobe lesion and a right occipital lobe lesion. The patient has received 24 Gy of a prescribed 24 Hernandez with an intensity modulated radiotherapy plan delivered utilizing stereotactic radiosurgery to the katherin metastasis. Upon review of systems, he continues to describe fatigue. On physical examination, the patient weighed 151 lbs. His temperature was 98.5 ???F with a blood pressure of 120/75 mmHg. His pulse was 122 bpm and the respiratory rate was 20 breaths per minute. Cranial nerves were intact. SRS to the katherin metastatic deposit was completed today. He will return for post-radiotherapy follow-up as scheduled. Signed by: Dr. Rick Reyes 02/04/2021 2:51:34 PM
--- NOTE | 2021-02-04 15:51 | N.ONRD TS_ITS ---
Stereotactic Radiosurgery Treatment Summary Patient Name: Saman Orozco Date of : 1960 Date of Service: 02/03/2021 Attending Physician: Rick Reyes M.D. Saman Orozco has completed fractionated stereotactic radiosurgery for the management of a left periventricular brain metastasis. He was diagnosed with extensive stage ([id number]) small cell lung cancer of the left upper lobe of the lung. He received 4 cycles of carboplatin and etoposide (04/09/20-08/05/2020) under the supervision of Rancho Acevedo M.D. A complete response was reported after re-staging CT scan. Consolidative radiotherapy was administered completing in September. An MRI ordered on December 04, 2020 identified a 1.8 cm x 1.4 cm left lateral basal ganglia lesion, a 1.3 cm x 1.5 cm frontal lobe lesion, two subcentimeter left periventricular lesions, a right cerebellar lesion, two left cerebellar lesions, a left temporal lobe lesion and a right occipital lobe lesion. SRS was performed on February 03, 2021. A prescribed dose of 24 Gy was delivered to the left periventricular metastasis in one fraction. The left periventricular metastatic deposit was treated utilizing and intensity modulated radiotherapy plan with a step and shoot treatment technique. The plan required four coplanar gomez and one non-coplanar port. The coplanar gomez were designed using gantry angles of 60?, 110?, 140?, and 170?, with a collimator rotation of 0?. The field size was 1.5 cm x 3 cm. The planned SSD measured between a minimum of 92.1 cm to a maximum of 94.4 cm. The delivered monitor units for the referenced gantry angles were 1167 MU, 1608 MU, 678 MU, and 1185 MU. An additional non-coplanar port was arranged with a gantry angle of 230?, a collimator rotation of 322?, and a couch angle of 85?. The non-coplanar portal field measured 2.3 cm x 1.4 cm with an SSD measurement of 92.9 cm. The non-coplanar port administered 1236 MU. All treatments were performed with the [employer] linear accelerator and an isocentric technique. The dose was calculated by Anisotropic Analytic Algorithm. Low energy photons were prescribed with the plan normalized to deliver 100% of the prescription dose to 99.5% of the planning target volume. Signed by: Dr. Rick Reyes 02/04/2021 10:54:04 AM
--- NOTE | 2021-02-04 15:53 | N.ONRD TS_ITS ---
Stereotactic Radiosurgery Treatment Summary Patient Name: Saman Orozco Date of : 1960 Date of Service: 01/29/2021 Attending Physician: Rick Reyes M.D. Saman Orozco has completed fractionated stereotactic radiosurgery for the management of a left temporal lobe brain metastasis. He was diagnosed with extensive stage ([id number]) small cell lung cancer of the left upper lobe of the lung. He received 4 cycles of carboplatin and etoposide (04/09/20-08/05/2020) under the supervision of Rancho Aecvedo M.D. A complete response was reported after re-staging CT scan. Consolidative radiotherapy was administered completing in September. An MRI ordered on December 04, 2020 identified a 1.8 cm x 1.4 cm left lateral basal ganglia lesion, a 1.3 cm x 1.5 cm frontal lobe lesion, two subcentimeter left periventricular lesions, a right cerebellar lesion, two left cerebellar lesions, a left temporal lobe lesion and a right occipital lobe lesion. SRS was performed on January 29, 2021. A prescribed dose of 24 Gy was delivered to the left temporal lobe metastasis in one fraction. The left temporal lobe metastatic deposit was treated utilizing and intensity modulated radiotherapy plan with a step and shoot treatment technique. The plan required four coplanar gomez and one non-coplanar port. The coplanar gomez were designed using gantry angles of 40?, 60?, 130?, and 160? with a collimator rotation of 0?. The minimum field size was 3 cm x 2.3 cm to a maximum of 3 cm x 2.6 cm. The planned SSD measured between a minimum of 92.9 cm to a maximum of 95.5 cm. The delivered monitor units for the referenced gantry angles were 1129 MU, 1332 MU, 527 MU, and 686 MU. An additional non-coplanar port was arranged with a gantry angle of 220? with a collimator rotation of 0? and a couch angle of 85?. The non-coplanar portal field measured 4 cm x 2 cm with an SSD measurement of 89.3 cm. The non-coplanar port administered 1335 MU. All treatments were performed with the [employer] linear accelerator and an isocentric technique. The dose was calculated by Anisotropic Analytic Algorithm. Low energy photons were prescribed with the plan normalized to deliver 100% of the prescription dose to 99.5% of the planning target volume. Signed by: Dr. Rick Reyes 02/04/2021 10:56:10 AM
--- NOTE | 2021-02-04 15:53 | N.ONRD TS_ITS ---
Stereotactic RadiosurgeryTreatment Summary Patient Name: Saman Orozco Date of : 1960 Date of Service: 02/02/2021 Attending Physician: Rick Reyes M.D. Saman Orozco has completed fractionated stereotactic radiosurgery for the management of a right occipital lobe brain metastasis. He was diagnosed with extensive stage ([id number]) small cell lung cancer of the left upper lobe of the lung. He received 4 cycles of carboplatin and etoposide (04/09/20-08/05/2020) under the supervision of Rancho Acevedo M.D. A complete response was reported after re-staging CT scan. Consolidative radiotherapy was administered completing in September. An MRI ordered on December 04, 2020 identified a 1.8 cm x 1.4 cm left lateral basal ganglia lesion, a 1.3 cm x 1.5 cm frontal lobe lesion, two subcentimeter left periventricular lesions, a right cerebellar lesion, two left cerebellar lesions, a left temporal lobe lesion and a right occipital lobe lesion. SRS was performed on January 29, 2021. A prescribed dose of 24 Gy was delivered to the right occipital lobe (periventricular) metastasis in one fraction. The right occipital lobe (periventricular) metastatic deposit was treated utilizing and intensity modulated radiotherapy plan with a step and shoot treatment technique. The plan required six coplanar gomez and one non-coplanar port. The coplanar gomez were designed using gantry angles of 160?, 190?, 210?, 230?, 260?, and 280? with a collimator rotation of 0?. The field size was 3 cm x 2 cm. The planned SSD measured between a minimum of 93 cm to a maximum of 95.9 cm. The delivered monitor units for the referenced gantry angles were 951 MU, 758 MU, 404 MU, 888 MU, and 1159 MU. An additional non-coplanar port was arranged with a gantry angle of 220? with a collimator rotation of 0? and a couch angle of 85?. The non-coplanar portal field measured 3.6 cm x 2 cm with an SSD measurement of 93.3 cm. The non-coplanar port administered 880 MU. All treatments were performed with the [employer] linear accelerator and an isocentric technique. The dose was calculated by Anisotropic Analytic Algorithm. Low energy photons were prescribed with the plan normalized to deliver 100% of the prescription dose to 99.5% of the planning target volume. Signed by: Dr. Rick Reyes 02/04/2021 10:55:43 AM
--- NOTE | 2021-02-04 15:54 | N.ONRD TS_ITS ---
Stereotactic RadiosurgeryTreatment Summary Patient Name: Saman Orozco Date of : 1960 Date of Service: 01/27/2021 Attending Physician: Rick Reyes M.D. Saman Orozco has completed fractionated stereotactic radiosurgery for the management of a left medial cerebellar brain metastasis. He was diagnosed with extensive stage ([id number]) small cell lung cancer of the left upper lobe of the lung. He received 4 cycles of carboplatin and etoposide (04/09/20-08/05/2020) under the supervision of Rancho Acevedo M.D. A complete response was reported after re-staging CT scan. Consolidative radiotherapy was administered completing in September. An MRI ordered on December 04, 2020 identified a 1.8 cm x 1.4 cm left lateral basal ganglia lesion, a 1.3 cm x 1.5 cm frontal lobe lesion, two subcentimeter left periventricular lesions, a right cerebellar lesion, two left cerebellar lesions, a left temporal lobe lesion and a right occipital lobe lesion. SRS was performed on January 22, 2021. A prescribed dose of 24 Gy was delivered to the left medial cerebellar metastasis in one fraction. The left medial cerebellar metastatic deposit was treated utilizing and intensity modulated radiotherapy plan with a step and shoot treatment technique. The plan required four coplanar gomez and one non-coplanar port. The coplanar gomez were designed using gantry angles of 130?, 160?, 190?, and 220? and associated with a collimator rotation of 0?. The minimum field size was 3 cm x 2.cm to a maximum of 3.2 cm x 2 cm. The planned SSD measured between a minimum of 94.2 cm to a maximum of 95 cm. The delivered monitor units for the referenced gantry angles were 837 MU, 1005 MU, 1099 MU, and 949 MU. An additional non-coplanar ports were arranged with a gantry angle of 210? with a collimator rotation of 0? with a couch angle of 85?. The non-coplanar portal field measured 3.1 cm x 1.8 cm with an SSD measurement of 93.4 cm. The non-coplanar port administered 1016 MU. All treatments were performed with the [employer] linear accelerator and an isocentric technique. The dose was calculated by Anisotropic Analytic Algorithm. Low energy photons were prescribed with the plan normalized to deliver 100% of the prescription dose to 99.5% of the planning target volume. Signed by: Dr. Rick Reyes 02/04/2021 10:57:22 AM
--- NOTE | 2021-02-04 15:54 | N.ONRD TS_ITS ---
Stereotactic Radiosurgery Treatment Summary Patient Name: Saman Orozco Date of : 1960 Date of Service: 02/04/2021 Attending Physician: Rick Reyes M.D. Saman Orozco has completed fractionated stereotactic radiosurgery for the management of a katherin brain metastasis. He was diagnosed with extensive stage ([id number]) small cell lung cancer of the left upper lobe of the lung. He received 4 cycles of carboplatin and etoposide (04/09/20-08/05/2020) under the supervision of Rancho Acevedo M.D. A complete response was reported after re-staging CT scan. Consolidative radiotherapy was administered completing in September. An MRI ordered on December 04, 2020 identified a 1.8 cm x 1.4 cm left lateral basal ganglia lesion, a 1.3 cm x 1.5 cm frontal lobe lesion, two subcentimeter left periventricular lesions, a right cerebellar lesion, two left cerebellar lesions, a left temporal lobe lesion and a right occipital lobe lesion. SRS was performed on February 04, 2021. A prescribed dose of 24 Gy was delivered to the katherin metastasis in one fraction. The katherin metastatic deposit was treated utilizing and intensity modulated radiotherapy plan with a step and shoot treatment technique. The plan required four coplanar gomez and one non-coplanar port. The coplanar gomez were designed using gantry angles of 60?, 130?, 220?, and 3000?, with a collimator rotation of 0?. The field sizes spanned 2.6 cm x 2.3 to 2.7 cm x 2.3 cm. The planned SSD measured between a minimum of 91 cm to a maximum of 91.8 cm. The delivered monitor units for the referenced gantry angles were 1765 MU, 575 MU, 748 MU, and 1845 MU. An additional non-coplanar port was arranged with a gantry angle of 210?, a collimator rotation of 0?, and a couch angle of 85?. The non-coplanar portal field measured 3.6 cm x 1 cm with an SSD measurement of 88.6 cm. The non-coplanar port administered 1199 MU. All treatments were performed with the [employer] linear accelerator and an isocentric technique. The dose was calculated by Anisotropic Analytic Algorithm. Low energy photons were prescribed with the plan normalized to deliver 100% of the prescription dose to 99.5% of the planning target volume. Signed by: Dr. Rick Reyes 02/04/2021 2:42:44 PM
--- NOTE | 2021-02-04 15:54 | N.ONRD TS_ITS ---
Steretotactic Radiosurgery Treatment Summary Patient Name: Saman Orozco Date of : 1960 Date of Service: 01/28/2021 Attending Physician: Rick Reyes M.D. Saman Orozco has completed fractionated stereotactic radiosurgery for the management of right cerebellar brain metastasis. He was diagnosed with extensive stage ([id number]) small cell lung cancer of the left upper lobe of the lung. He received 4 cycles of carboplatin and etoposide (04/09/20-08/05/2020) under the supervision of Rancho Acevedo M.D. A complete response was reported after re-staging CT scan. Consolidative radiotherapy was administered completing in September. An MRI ordered on December 04, 2020 identified a 1.8 cm x 1.4 cm left lateral basal ganglia lesion, a 1.3 cm x 1.5 cm frontal lobe lesion, two subcentimeter left periventricular lesions, a right cerebellar lesion, two left cerebellar lesions, a left temporal lobe lesion and a right occipital lobe lesion. SRS was performed on January 28, 2021. A prescribed dose of 24 Gy was delivered to the right cerebellar metastasis in one fraction. The right cerebellar metastatic deposit was treated utilizing and intensity modulated radiotherapy plan with a step and shoot treatment technique. The plan required five coplanar gomez and one non-coplanar port. The coplanar gomez were designed using gantry angles of 160?, 190?, 210?, 240?, and 260? with a collimator rotation of 0?. The minimum field size was 2.6 cm x 2.cm to a maximum of 2.7 cm x 2.3 cm. The planned SSD measured between a minimum of 93.8 cm to a maximum of 95.1 cm. The delivered monitor units for the referenced gantry angles were 814 MU, 852 MU, 653 MU, 501 MU, and 1300 MU. An additional non-coplanar port was arranged with a gantry angle of 210? with a collimator rotation of 0? and a couch angle of 85?. The non-coplanar portal field measured 3.5 cm x 1.5 cm with an SSD measurement of 92.6 cm. The non-coplanar port administered 971 MU. All treatments were performed with the [employer] linear accelerator and an isocentric technique. The dose was calculated by Anisotropic Analytic Algorithm. Low energy photons were prescribed with the plan normalized to deliver 100% of the prescription dose to 99.5% of the planning target volume. Signed by: Dr. Rick Reyes 02/04/2021 10:56:45 AM
== END 2021-02-21 23:59 | disposition home or self-care (01) ==
LOC: ONCMED 06:02
PROVIDERS: PCP Nurse Practitioner Family; Visit Provider Radiology Radiation Oncology
DX: Z51.0 Encounter for antineoplastic radiation therapy (principal); C34.12 Malignant neoplasm of upper lobe, left bronchus or lung; C79.31 Secondary malignant neoplasm of brain; D70.1 Agranulocytosis secondary to cancer chemotherapy; T45.1X5A Adverse effect of antineoplastic and immunosuppressive drugs, initial encounter; Z79.899 Other long term (current) drug therapy
CPT/HCPCS: 77300; 77336; 77338; 77372; 96523; 99214

== ENCOUNTER 2021-03-10 07:57 | Outpatient (RCR) | payer MEDICAID, SELFPAY ==
[2020-11-13 12:02] VITALS: BMI 24.3
[2021-03-10 09:49] LABS: Blood Urea Nitrogen 7 mg/dL (8-23); Glomerular Filtration Rate 114.3 mL/min (90-130)
== END 2021-03-24 23:59 | disposition home or self-care (01) ==
LOC: RAD 07:57
PROVIDERS: PCP Nurse Practitioner Family; Visit Provider Radiology Radiation Oncology
DX: C79.31 Secondary malignant neoplasm of brain (principal); C34.12 Malignant neoplasm of upper lobe, left bronchus or lung; D70.1 Agranulocytosis secondary to cancer chemotherapy; I51.7 Cardiomegaly; N28.9 Disorder of kidney and ureter, unspecified; I70.0 Atherosclerosis of aorta
CPT/HCPCS: 36591; 82565; 84520

== ENCOUNTER 2021-03-10 09:02 | Outpatient (CLI) | payer MEDICAID, SELFPAY ==
[2020-11-13 12:02] VITALS: BMI 24.3
--- NOTE | 2021-03-10 09:07 | CT_ITS ---
WS: [id number] CT CHEST, ABDOMEN AND PELVIS WITH CONTRAST. HISTORY: LUNG CANCER/RESTAGING EVALUATION TECHNIQUE: Contiguous 5 mm axial imaging performed through the chest, abdomen and pelvis IV contrast, oral contrast has been provided. Coronal and sagittal reformats chest. Coronal and sagittal reformat s through the abdomen and pelvis. All CT scans at [facility] use at least one of these do se optimization techniques: automated exposure control; mA and/or kV adjustment per patient size (inc ludes targeted exams where dose is matched to clinical indication); or iterative reconstruction. CONTRAST: Omnipaque 300; 95 mL IV. DLP: 1025.63 mGy.cm COMPARISON: 08/12/2020 and 09/25/[address]: Significant change in appearance of lungs since 08/12/2020. There are now multilobar pleural and subpleural reticulations and consolidations bilaterally. There is honeycombing and traction bron chiectasis. There is mild thickening along the superior LEFT minor fissure measuring 13 mm. This soft tissue thickening is in the area of a previously described nodule. Mild increase in size of the medi astinal and hilar lymph nodes. RIGHT paratracheal lymph node measures 9 mm. Subcarinal lymph node gerber sures 9 mm. Heart size is normal. Abdomen CT: Liver, gallbladder, spleen, pancreas, adrenals and LEFT kidney are unchanged. Nonobstruct ing calcifications measuring 7 mm lower pole RIGHT kidney. Low attenuation 6 mm nodule in the upper p ole of the RIGHT kidney is indeterminant. Moderate atherosclerosis aorta. No GI tract obstruction. Ap pendix is normal. Pelvic CT: Dense atherosclerotic calcification within the aorta and iliac arteries. Urinary bladder i s well distended. Prostate gland is enlarged. No osteoblastic or osteolytic bone disease. Moderate spondylitic changes in the lumbar spine. No dest ructive bone lesions. CT/CT chest abd pel w con* IMPRESSION: 1. Significant change throughout both lungs since the prior study. There is ex tensive honeycombing and increased reticulation throughout both lobes which is new since 08/12/2020. Most likely development of interstitial fibrosis since the prior examination. Not a typical distribution for post radiation change. These dense consolidations may obscure pulmonary nodules or metastatic lesions. 2. Mild increase in size of the mediastinal and hilar lymph nodes with the lar gest lymph node in the subcarina measuring 9 mm. 3. Cardiomegaly. 4. Indeterminate 6 mm nodule upper pole RIGHT kidney. This has not been seen o n prior studies. Recommend further evaluation by ultrasound.
[2021-03-10] MEDS: iohexol 300 mg/mL 50 mL Btl PO (10:30)
[2021-03-10] MEDS: iohexol 300 mg/mL 100 mL Btl IV (10:50)
== END 2021-03-10 09:03 | disposition home or self-care (01) ==
LOC: CT 09:04
PROVIDERS: PCP Nurse Practitioner Family; Visit Provider Radiology Radiation Oncology
DX: C34.12 Malignant neoplasm of upper lobe, left bronchus or lung (principal); I51.7 Cardiomegaly; N28.89 Other specified disorders of kidney and ureter
CPT/HCPCS: 71260; 74177

== ENCOUNTER 2021-03-13 11:57 | Emergency (ER) | payer MEDICAID, SELFPAY ==
[2020-11-13 12:02] VITALS: BMI 24.3
[2021-03-13] VITALS (8 sets, daily range): BP systolic 94–110; BP diastolic 63–74; PULSE 95–127; RESP 15–32; TEMP 36.4; O2SAT 84–97; BMI 23.1
--- NOTE | 2021-03-13 12:14 | XR_ITS ---
WS: [id number] Portable AP upright chest, 03/13/2021 Clinical Data: SOB Comparison: Portable chest, 03/13/2020. Findings: Bilateral patchy opacities in the lower lobes have developed with more opacity on the left than the right. No nodules, masses or effusions are seen. The heart is normal. The aortic arch shows tortuosity. There is a right subclavian catheter which ends in the superior vena cava. There are silvina tor leads on the chest wall. There is an anterior cervical disc fusion and a posterior cervical fusio n. XR/XR chest 1V portable [id number] Impression: 1. Bilateral patchy lower lobe pulmonary opacities consistent with pneumonia. 2. Atherosclerosis.
[2021-03-13 12:37] LABS: Basophils % 0.1 %; Eosinophils % 0.1 %; Hematocrit 33.3 % (42.0-52.0); Hemoglobin 10.3 g/dL (11.7-16.6); Lymphocytes # 0.4 10^3/uL (0.8-4.8); Lymphocytes % 3.1 %; Mean Corpuscular HGB Conc 30.9 g/dL (30.0-36.0); Mean Corpuscular Hemoglobin 28.3 pg (28.0-34.0); Mean Corpuscular Volume 91.5 fl (80-94); Mean Platelet Volume 10.6 fL (7.4-10.4); Monocytes # 0.5 10^3/uL (0.2-0.9); Monocytes % 3.4 %; Neutrophils # 12.14 10^3/uL (1.8-7.7); Neutrophils % 92.4 %; Nucleated Red Blood Cells % 0 %; Platelet Count 348 10^3/cmm (130-400); Red Blood Count 3.64 10^6/uL (4.1-5.3); Red Cell Distribution Width 14.6 % (12.1-15.1); White Blood Count 13.1 10^3/uL (4.0-10.0)
--- NOTE | 2021-03-13 12:46 | CT_ITS ---
WS: [id number] CTA OF THE CHEST WITH PULMONARY EMBOLISM PROTOCOL TECHNIQUE: High-resolution contrast enhanced CTA of the chest with coronal and sagittal reformatted i mages with pulmonary embolism protocol. MIP images are also reviewed. CLINICAL INFORMATION: r/o PE COMPARISON: CT March 10, 2021 DLP: 541.[address] scans at [facility] use at least one of these dose optimization techniques: automat ed exposure control; mA and/or kV adjustment per patient size (includes targeted exams where dose is matched to clinical indication); or iterative reconstruction. FINDINGS: Proximal main pulmonary arteries are normal. Atretic left upper lobe pulmonary arteries likely due to prior radiation therapy with fibrosis. No intraluminal filling defects. No evidence of pulmonary emb olus.Normal caliber thoracic aorta. Otherwise no significant changes from the recent CT. Extensive honeycombing with increased reticular opacities throughout both lungs likely due to interstitial lung disease with fibrosis. Prominent medi astinal and hilar lymph nodes. Prominent subcarinal lymph nodes. Cardiomegaly. Associated traction br onchiectasis in both lungs. 13 mm nodule along the left minor fissure. Adrenal glands are normal. Small right adrenal adenoma. Fatty atrophy of the pancreas. Small esophage al hiatal hernia. Hypertrophic changes thoracic spine. Postoperative changes partially visualized in the lower cervical spine. CT/CT angio chest PE protcl [id number] IMPRESSION: 1. No evidence of pulmonary embolus. 2. Atretic left upper lobe pulmonary arteries likely due to prior radiation th erapy with fibrosis. No intraluminal filling defects. 3. Otherwise no significant changes since the recent examination. 4. Changes of interstitial lung disease with bilateral reticular opacities and subpleural honeycombing. Associated traction bronchiectasis. 5. Prominent anterior mediastinal, hilar, subcarinal lymph nodes.
[2021-03-13] MEDS: iohexol 350 mg/mL 100 mL Btl IV (13:04)
[2021-03-13 13:09] LABS: Alanine Aminotransferase 85 U/L (0-41); Alkaline Phosphatase 140 IU/L (40-130); Anion Gap 18.3 (5-19); Aspartate Amino Transferase 70 U/L (0-40); Blood Urea Nitrogen 11 mg/dL (8-23); Calcium 8.7 mg/dL (8.5-10.5); Carbon Dioxide 22 mmol/L (22-29); Chloride 97 mmol/L (98-107); Globulin 4.4 g/dL (1.3-4.6); Glomerular Filtration Rate 114.3 mL/min (90-130); Glucose 108 mg/dL (65-115); NT Pro B Type Natriuretic Pept 900 pg/mL (0-125); Osmolality Calculated 276 mOsm/kg (285-295); Potassium 4.3 mmol/L (3.5-5.1); Sodium 133 mmol/L (136-145); Total Bilirubin 0.5 mg/dL (0.15-1.2); Total Protein 7.4 g/dL (6.6-8.7)
--- NOTE | 2021-03-13 13:21 | W.ED.SOB ---
HPI - SOB/Dyspnea General: Chief Complaint: Shortness of Breath/Dyspnea Stated Complaint: RESPIRATORY DISTRESS, Hx Lung CA Time Seen by Provider: 03/13/21 12:00 History of Present Illness: HPI Narrative: Patient is a 60-year-old male with past medical history of COPD and stage IV lung cancer. Treatment currently with chemotherapy and radiation in an attempt for curative therapy. Has not had any surgery. States over the last 2 months he has been increasingly short of breath. Accelerated today I was not getting much better with his nebulizers. EMS brought him in from a situation where he is not use oxygen at home but it was using 6 L to get him up to 90 did 91%. Has not been Covid positive but his live-in partner was positive a month ago. He has been isolating under the assumption that he caught Covid as well. Has not had any recent fevers chills headaches nausea vomiting diarrhea constipation altered mental status or syncope. Review of Systems General: Reports: 10 or more systems reviewed and unremarkable except in HPI and below PFSH ED PFSH: Medical History Major depressive disorder, recurrent severe without psychotic features Port-A-Cath in place (04/09/20) right subclavian Post-traumatic stress disorder, chronic Small cell lung cancer Surgical History H/O neck surgery History of bronchoscopy Hx of tonsillectomy Family History Father Hypertension Diabetes Mother Cancer Social History Smoking and tobacco status: former smoker Quit status (tobacco): has quit using tobacco Year quit tobacco: [id number] Second hand smoke exposure: Yes Smoking risk assessment/counseling performed?: Yes Tobacco counseling given: counseling >3 minutes Alcohol intake: former Desire information about substance/drug rehabilitation?: No Adopted: No Caregiver/support person: No Lives independently: Yes Household members: significant other Housing: Manufactured/Mobile home Marital status: Marital status details: 19 years with current partner Number of children: 2 Number of grandchildren: 8 Highest education level completed: 7th Grade service: No Current occupational status: retired and disabled Current occupational exposures/hazards: No Pets and animals: Yes (2 indoor dogs) Pets & animals: dog(s) History of recent travel: No Leisure activites: other Leisure activities details: watch TV Sexually active: Yes Current gender identity: Male Kandi/Advent: None Special kandi needs: No Agree to transfusion: Yes Financial difficulty paying for basics: Somewhat Hard Physical Exam Const: COMMON NORMALS: no acute distress, average body habitus and patient oriented x3 HENMT: COMMON NORMALS: normocephalic and atraumatic HEAD & SCALP: normocephalic and atraumatic Eye: COMMON NORMALS: Equal, round and reactive pupils present and EOMs intact bilaterally PUPIL: Yes Equal, round and reactive pupils present Resp: COMMON NORMALS: normal respiratory effort, No retractions and No use of accessory muscles; negative for clear to auscultation bilaterally AUSCULTATION: not clear to auscultation bilaterally and diminished lung sounds bilateral and diffuse Cardio: COMMON NORMALS: regular rate (Tachycardic) and regular rhythm RATE: regular rate (Tachycardic) RHYTHM: regular rhythm GI: COMMON NORMALS: Normal to inspection, nondistended, normoactive bowel sounds present Extremity: COMMON NORMALS: normal to inspection, full ROM and capillary refill normal Neuro: COMMON NORMALS: patient oriented x3, moves all extremities and no sensory deficits noted Psych: COMMON NORMALS: mental status grossly normal and Normal thought process present THOUGHT PROCESS: Normal thought process present Skin: COMMON NORMALS: no rashes or lesions noted GENERAL SKIN EXAM: no rashes or lesions noted Course ED course: Has I been able to wean the patient down from 6 L now to 4 L. He was at 4 L reports breathing treatment after his breathing treatment he is now down to about 3 L. Will assess wait on results of CT PE at that is negative we will try to send him home on home oxygen. Patient is stabilized on 3 L of nasal cannula oxygen. CT did not show any pulmonary embolus and did not show any pneumonia or anything organized. Does have a fever and only has mild leukocytosis. Get a consider this is COPD exacerbation so we will send him home on few days of doxycycline and steroids and also his home oxygen. 11 follow-up with his primary care doctor Vital Signs: Vital signs: Vital Signs Temperature 97.5 F L 03/13/21 12:06 Pulse Rate 107 H 03/13/21 15:07 Respiratory Rate 24 H 03/13/21 15:07 Blood Pressure 94/63 03/13/21 15:07 Pulse Oximetry 96 03/13/21 15:07 MDM - SOB/Dyspnea MDM Narrative: Medical decision making narrative: Patient is a 60-year-old male with advanced lung cancer here with chronic shortness of breath. Differential includes lung cancer, pneumonia, COPD, pulmonary embolism Patient is currently comfortable on 6 L of nasal cannula which is getting him up to the low 90s. Very unlikely this is Covid as we will have respiratory therapy treat him to see if we can start weaning down at all. Given tachycardia increase in oxygen requirements and known lung cancer we will go ahead and get a CT PE on him had a long conversation with Mr. Orozco about goals of care. Although he is committed to trying to be cured of cancer he does understand that that may not be the eventuality. He does not want to be intubated he also very much wants to not be in the hospital if possible we did discuss going home on home oxygen if that was possible and he was very much in favor of that. He is not in any acute respiratory distress does not need noninvasive positive pressure or any other advanced airway management. Will work him up and come up with a plan after that Lab Data: Labs: Lab Results 03/13/21 03/13/21 03/13/21 Range/Units 11:30 11:30 12:55 WBC 13.1 H (4.0-10.0) 10^3/ uL RBC 3.64 L (4.1-5.3) 10^6/u L Hgb 10.3 L (11.7-16.6) g/dL Hct 33.3 L (42.0-52.0) % MCV 91.5 (80-94) fl MCH 28.3 (28.0-34.0) pg MCHC 30.9 (30.0-36.0) g/dL RDW 14.6 (12.1-15.1) % Plt Count 348 (130-400) 10^3/c mm MPV 10.6 H (7.4-10.4) fL Neut % (Auto) 92.4 % Lymph % (Auto) 3.1 % Newberry % (Auto) 3.4 % Eos % (Auto) 0.1 % Baso % (Auto) 0.1 % Neut # (Auto) 12.14 H (1.8-7.7) 10^3/u L Lymph # (Auto) 0.4 L (0.8-4.8) 10^3/u L Newberry # (Auto) 0.5 (0.2-0.9) 10^3/u L Eos # (Auto) 0.0 (0.0-0.8) 10^3/u L Baso # (Auto) 0.0 (0.0-0.1) 10^3/u L Nucleated RBC % (a uto) 0 % Nucleated RBCs # 0.0 /100WBC Sodium 133 L (136-145) mmol/L Potassium 4.3 (3.5-5.1) mmol/L Chloride 97 L (98-107) mmol/L Carbon Dioxide 22 (22-29) mmol/L Anion Gap 18.3 (5-19) BUN 11 (8-23) mg/dL Creatinine 0.7 (0.7-1.2) mg/dL GFR Calculation 114.3 (90-130) mL/min Glucose 108 (65-115) mg/dL Calculated Osmolal ity 276 L (285-295) mOsm/k g Lactic Acid 1.7 (0.5-2.2) mmol/L Calcium 8.7 (8.5-10.5) mg/dL Total Bilirubin 0.5 (0.15-1.2) mg/dL AST 70 H (0-40) U/L ALT 85 H (0-41) U/L Alkaline Phosphata se 140 H (40-130) IU/L NT-Pro-B Natriuret Pep 900 H (0-125) pg/mL Total Protein 7.4 (6.6-8.7) g/dL Albumin 3.0 L (3.5-5.2) g/dL Globulin 4.4 (1.3-4.6) g/dL Discharge Plan Discharge Patient Disposition: Home Clinical Impression: Chronic bronchitis Condition: Stable Prescriptions: New prednisone 20 mg tablet 20 mg PO BID 3 Days Qty: 6 RF: 0 doxycycline hyclate 100 mg capsule 100 mg PO BID 3 Days Qty: 6 RF: 0 No Action albuterol sulfate [ProAir HFA] 90 mcg/actuation HFA aerosol inhaler 2 puff INHALATION QID PRN (Reason: shortness of breath or wheezing) 30 Days Qty: 18 RF: 4 paroxetine HCl [Paxil] 40 mg tablet 40 mg PO DAILY Qty: 30 RF: 2 aripiprazole [Abilify] 30 mg tablet 30 mg PO DAILY Qty: 30 RF: 2 fluticasone propionate [Flonase Allergy Relief] 50 mcg/actuation spray,suspension 1 spray intranasal BID 30 Days Qty: 15.8 RF: 4 oxycodone 15 mg tablet 15 mg PO QID PRN (Reason: Pain) RF: 0 Xanax 1 mg Tablet 1 mg PO .1 HOUR PRIOR TO MRI PRN (Reason: Anxiety) RF: 0 lisinopril 20 mg Tablet 20 mg PO DAILY RF: 0 dexamethasone 4 mg Tablet 4 mg PO DAILY RF: 0 omeprazole 20 mg Capsule,Delayed Release(Dr/Ec) 20 mg PO DAILY RF: 0 Discharge Orders: Discharge ED (Routine); Ordered 03/13/21 Ordered By: Archie Choe Referrals: Dodie Hilton FNP [Primary Care Provider] - Discharge Activity: Resume usual activity Patient Instructions: Chronic Obstructive Pulmonary Disease (ED) Activity Restrictions/Additional Instructions: Follow-up with your primary care provider in 3 to 5 days. Return the emergency department with any new or worsening symptoms or if you have to go about 5 L on your oxygen. Coding Level of Care Code ED [employer] Director for [employer] Fwd Exam Comprehensive
[2021-03-13 13:32] LABS: Lactic Sepsis W/Reflex 1.7 mmol/L (0.5-2.2)
[2021-03-13] MEDS: ipratropium-albuterol 3 mL Neb INHALATION (13:43)
--- NOTE | 2021-03-13 16:11 | PC.SOCIAL ---
Pre-Cert number assigned: [id number] access faxed to [facility] at this time.
--- NOTE | 2021-03-13 17:22 | ECG_ITS ---
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 Measurements Intervals [place] Rate: 112 P: 59 RI: 141 QRS: -29 QRSD: 98 T: 77 QT: 333 QTc: 456 Interpretive Statements SINUS TACHYCARDIA POSSIBLE LEFT ATRIAL ENLARGEMENT [-0.1mV P-WAVE IN V1/V2] Possible old lateral [place]. Baseline artifact Comparison with the previous study is difficult because of the artifact. Need to repeat the study Electronically Signed On 03-13-2021 19:34:58 CDT by Raymundo Duke M.D. [id number]
== END 2021-03-13 17:40 | disposition home or self-care (01) ==
PROVIDERS: Emergency Provider Family Medicine; PCP Nurse Practitioner Family
DX: J42 Unspecified chronic bronchitis (principal); Z87.891 Personal history of nicotine dependence; Z85.118 Personal history of other malignant neoplasm of bronchus and lung
CPT/HCPCS: 71045; 71275; 80053; 83605; 83880; 85025; 93005; 94640; 96374; 99284; J2930; Q9967

== ENCOUNTER 2021-04-23 06:32 | Outpatient (RCR) | payer MEDICAID, SELFPAY ==
[2020-11-13 12:02] VITALS: BMI 24.3
--- NOTE | 2021-04-06 10:15 | MR_ITS ---
WS: [id number] MRI HEAD WITH CONTRAST TECHNIQUE: Sagittal T1, T2 axial, T2 axial FLAIR, axial susceptibility weighted imaging, axial diffus ion weighted images, and coronal T2 images were obtained. Pre and post-T1 axial and post T1 coronal i mages. ADC and FSPGR images. CLINICAL INFORMATION: PERSISTENT DE LUNA, DIZZINESS, NAUSEA; LUNG CA COMPARISON: MRI 12/04/2020 and 08/26/2020 FINDINGS: Some images degraded by motion. Again seen are multiple enhancing supra and infratentorial metastatic lesions. Some of the lesions ar e improved and some are progressed compared to previous. Progressed right frontal lesion today measur ing 6.3 mm with increased associated T2 signal abnormality. Slightly progressed left parietal lesion today measuring 10 mm compared to 7 mm previous. Slightly progressed left anterior frontal lesion gerber suring 6 mm. Left posterior frontal lesion has improved. Significant improvement of the left basal ga nglia lesion which has nearly resolved. Progressed left pericentral occipital lesion today measuring 10 mm. Progressed right cerebellar lesion today measuring 13 mm. Additional progressed right lateral cerebellar lesion today measuring 14 mm. Slightly increased left cerebellar lesion measuring [address] able tiny enhancing lesion in the katherin. New small enhancing left frontal periventricular lesion. No significant mass effect or midline shift. Mild edema associated with the progressed lesions. Stabl e appearing tiny enhancing lesion in the katherin. Fourth ventricle is patent. Mild parenchymal volume lo ss. Normal vascular flow voids at the skull base. No extra axial fluid collections. Mild mucosal thickeni ng in the paranasal sinuses. Stable chronic appearing metastatic lesion C2 vertebral body appears sta ble. Normal optic chiasm and pituitary infundibulum. MR/MR head wo/w con [id number] IMPRESSION: 1. Numerous supra and infratentorial lesions have progressed since the prior e xamination. A few have improved. Overall mixed response to therapy. 2. No significant mass effect or midline shift. No hydrocephalus. 3. Mild edema associated with the progress lesions. 4. Largest progressed lesions involve the left parietal lobe measuring 10 mm, left occipital lobe 10 mm, right cerebellum midline 13 mm, and right lateral ce rebellum 14 mm.
[2021-04-06] MEDS: gadobenate dimeglumine 20 mL vial IV (10:59)
--- NOTE | 2021-04-10 10:43 | ONCRAD EPV_ITS ---
Radiation Oncology Follow-Up Note Patient Name: Saman Orozco Date of : 1960 Date of Service: 04/10/2021 Attending Physician: Rick Reyes M.D. Saman Orozco returned to my office this morning for routinely scheduled follow-up appointment. He completed nine stereotactic radiosurgery procedures in January for the management of an extensive stage ([id number]) small cell lung cancer of the left upper lobe of the lung. He received 4 cycles of carboplatin and etoposide (04/09/2020 through 08/05/2020) under the supervision of Rancho Acevedo M.D. A complete response was reported after re-staging CT scan. Consolidative radiotherapy was administered completing in September. An MRI ordered on December 04, 2020 identified a 1.8 cm x 1.4 cm left lateral basal ganglia lesion, a 1.3 cm x 1.5 cm frontal lobe lesion, two subcentimeter left periventricular lesions, a right cerebellar lesion, two left cerebellar lesions, a left temporal lobe lesion and a right occipital lobe lesion. SRS was performed on the dates listed: December 16, 2020 through December 29, 2020 - The prescribed dose of 30 Gy was delivered to the left frontal lobe lesion in five fractions. January 06, 2021 through January 16, 2021 - The prescribed dose of 30 Gy was delivered to the left basal ganglia lesion in five fractions. January 20, 2021 - The prescribed dose of 24 Gy was delivered to the left lateral cerebellar lesion in one fraction. January 27, 2021 - The prescribed dose of 24 Gy was delivered to the left medial cerebellar lesion in one fraction. January 28, 2021 - The prescribed dose of 24 Gy was delivered to the right cerebellar lesion in one fraction. January 29, 2021 - The prescribed dose of 24 Gy was delivered to the left temporal lobe lesion in one fraction. February 02, 2021 - The prescribed dose of 24 Gy was delivered to the right periventricular lesion in one fraction. February 03, 2021 - The prescribed dose of 24 Gy was delivered to the left periventricular lesion in one fraction. February 04, 2021 - The prescribed dose of 24 Gy was delivered to the katherin lesion in one fraction. A repeat MRI ordered on April 06, 2021 for post-radiosurgery surveillance identified a complete response to the aforementioned metastases except for the katherin lesion which demonstrated no growth. New metastases had developed within the right frontal lobe (6.3 mm), the left anterior frontal lobe (6.3 mm), left parietal lobe (1 cm), left occipital lobe (1 cm), right lateral cerebellum (1.4 cm), right posterior cerebellum (1.3 cm), and cerebellum (7.5 mm), respectively. The C2 vertebral body lesion was stable. On review of systems, he denied central nervous system complaints. He continues to report a poor appetite and fatigue. On physical examination, the patient weighed 129 pounds. The temperature was 97.7???F and the blood pressure was 109/78 mmHg. The pulse was 111 bpm and the respiratory rate was 24 breaths per minute. Neurological exam revealed tandem gait abnormality (right-side) but no other cerebellar signs. In summary, Mr. Orozco returned for a routine post radiotherapy follow-up. Results of the recent head MRI were reviewed. The patient would like to pursue SRS to the new metastatic deposits. He will return for SRS treatment planning. Signed by: Dr. Rick Reyes 04/10/2021 10:42:07 AM
[2021-04-10 11:36] LABS: Basophils % 0.5 %; Eosinophils # 0.2 10^3/uL (0.0-0.8); Eosinophils % 3.5 %; Hematocrit 31.4 % (42.0-52.0); Hemoglobin 9.4 g/dL (11.7-16.6); Lymphocytes # 0.3 10^3/uL (0.8-4.8); Lymphocytes % 4.7 %; Mean Corpuscular HGB Conc 29.9 g/dL (30.0-36.0); Mean Corpuscular Hemoglobin 27.9 pg (28.0-34.0); Mean Corpuscular Volume 93.2 fl (80-94); Mean Platelet Volume 8.9 fL (7.4-10.4); Monocytes # 0.6 10^3/uL (0.2-0.9); Monocytes % 8.5 %; Neutrophils # 5.43 10^3/uL (1.8-7.7); Neutrophils % 82.5 %; Nucleated Red Blood Cells % 0 %; Platelet Count 407 10^3/cmm (130-400); Red Blood Count 3.37 10^6/uL (4.1-5.3); Red Cell Distribution Width 16.1 % (12.1-15.1); White Blood Count 6.6 10^3/uL (4.0-10.0)
[2021-04-10 11:58] LABS: Alanine Aminotransferase 6 U/L (0-41); Albumin Level 3.4 g/dL (3.5-5.2); Alkaline Phosphatase 89 IU/L (40-130); Anion Gap 13.2 (5-19); Aspartate Amino Transferase 11 U/L (0-40); Blood Urea Nitrogen 7 mg/dL (8-23); Calcium 8.9 mg/dL (8.5-10.5); Carbon Dioxide 29 mmol/L (22-29); Chloride 97 mmol/L (98-107); Globulin 3.5 g/dL (1.3-4.6); Glomerular Filtration Rate 136.5 mL/min (90-130); Glucose 91 mg/dL (65-115); Osmolality Calculated 278 mOsm/kg (285-295); Potassium 4.2 mmol/L (3.5-5.1); Sodium 135 mmol/L (136-145); Total Bilirubin 0.4 mg/dL (0.15-1.2); Total Protein 6.9 g/dL (6.6-8.7)
--- NOTE | 2021-04-15 | CT_ITS ---
Radiation Therapy Planning CT images; total exam DLP: 1080.85 mGy-cm MTDD
--- NOTE | 2021-04-21 11:16 | N.ONRD TS_ITS ---
Stereotactic Radiosurgey Treatment Summary Patient Name: Saman Orozco Date of : 1960 Date of Service: 04/21/2021 Attending Physician: Rick Reyes M.D. Saman Orozco has completed fractionated stereotactic radiosurgery for the management of a left parietal lobe brain metastasis. He was diagnosed with extensive stage ([id number]) small cell lung cancer of the left upper lobe of the lung. He received 4 cycles of carboplatin and etoposide (04/09/20-08/05/2020) under the supervision of Rancho Acevedo M.D. A complete response was reported after re-staging CT scan. Consolidative radiotherapy was administered in September. An MRI ordered on December 04, 2020 identified a 1.8 cm x 1.4 cm left lateral basal ganglia lesion, a 1.3 cm x 1.5 cm frontal lobe lesion, two subcentimeter left periventricular lesions, a right cerebellar lesion, two left cerebellar lesions, a left temporal lobe lesion and a right occipital lobe lesion. He completed nine stereotactic radiosurgery procedures in January. A repeat MRI ordered on April 06, 2021 for post-radiosurgery surveillance identified a complete response to the aforementioned metastases excluding the katherin lesion which demonstrated no growth. New metastases had developed within the right frontal lobe (6.3 mm), the left anterior frontal lobe (6.3 mm), left parietal lobe (1 cm), left occipital lobe (1 cm), right lateral cerebellum (1.4 cm), right posterior cerebellum (1.3 cm), and left cerebellum (7.5 mm), respectively. The C2 vertebral body lesion was stable. SRS was performed on April 21, 2021. A prescribed dose of 24 Gy was delivered to the left parietal lobe metastasis in one fraction. The left parietal lobe metastatic deposit was treated utilizing and intensity modulated radiotherapy plan with a step and shoot treatment technique. The plan required six coplanar gomez and two non-coplanar ports. The coplanar gomez were designed using gantry angles of 70???, 100???, 130???, 160???, 190???, and 220??? and were associated with a collimator rotation of 0???. The minimum field size was 3.3 cm x 3 cm to a maximum of 3.6 cm x 3 cm. The planned SSD measured between a minimum of 94.5 cm to a maximum of 97.6 cm. The delivered monitor units for the referenced gantry angles were 642 MU, 739 MU, 267 MU, 429 MU, 507 MU, and 263 MU. An additional two non-coplanar ports were arranged with gantry angles of 230??? and 300??? with collimator rotations of 0??? a couch angle of 85???. The non-coplanar portal gomez measured 4 cm x 2 cm and 4 cm x 2 cm, respectively with SSD measurements of 97.5 cm and 97 cm. The non-coplanar ports administered 582 MU and 723 MU. All treatments were performed with the Periscope linear accelerator and an isocentric technique. The dose was calculated by Anisotropic Analytic Algorithm. Low energy photons were prescribed with the plan normalized to deliver 100% of the prescription dose to 100% of the planning target volume. Signed by: Dr. Rick Reyes 04/22/2021 12:44:58 PM
--- NOTE | 2021-04-21 11:35 | ONCRAD TMN_ITS ---
Stereotactic Radiosurgery Treatment Management Note Patient Name: Saman Orozco Date of : 1960 Date of Service: 04/21/2021 Attending Physician: Rick Reyes M.D. Saman Orozco is a 60 year-old white male diagnosed extensive stage ([id number]) small cell lung cancer of the left upper lobe of the lung. He received 4 cycles of carboplatin and etoposide (04/09/20-08/05/2020) under the supervision of Rancho Acevedo M.D. A complete response was reported after re-staging CT scan. Consolidative radiotherapy was administered completing in September. An MRI ordered on December 04, 2020 identified a 1.8 cm x 1.4 cm left lateral basal ganglia lesion, a 1.3 cm x 1.5 cm frontal lobe lesion, two subcentimeter left periventricular lesions, a right cerebellar lesion, two left cerebellar lesions, a left temporal lobe lesion and a right occipital lobe lesion. He completed nine stereotactic radiosurgery procedures in January. A repeat MRI ordered on April 06, 2021 for post-radiosurgery surveillance identified a complete response to the aforementioned metastases excluding the katherin lesion which demonstrated no growth. New metastases had developed within the right frontal lobe (6.3 mm), the left anterior frontal lobe (6.3 mm), left parietal lobe (1 cm), left occipital lobe (1 cm), right lateral cerebellum (1.4 cm), right posterior cerebellum (1.3 cm), and left cerebellum (7.5 mm), respectively. The C2 vertebral body lesion was stable. The patient has received 24 Gy of a prescribed 24 Hernandez with an intensity modulated radiotherapy plan delivered utilizing stereotactic radiosurgery to the left parietal metastasis. Upon review of systems, he reported malaise. . On physical examination, the patient weighed 127 lbs. His temperature was 96.8 ???F with a blood pressure of 113/77 mmHg. His pules was 105 bpm and the respiratory rate was 22 breaths per minute. Cranial nerves were intact. SRS to the left parietal metastatic deposit was completed today. He will return for the next scheduled SRS procedure. Signed by: Dr. Rick Reyes 04/21/2021 11:33:47 AM
--- NOTE | 2021-04-23 11:25 | ONCRAD TMN_ITS ---
Stereotactic Radiosurgery Treatment Management Note Patient Name: Saman Orozco Date of : 1960 Date of Service: 04/22/2021 Attending Physician: Rick Reyes M.D. Saman Orozco is a 60 year-old white male diagnosed extensive stage ([id number]) small cell lung cancer of the left upper lobe of the lung. He received 4 cycles of carboplatin and etoposide (04/09/20-08/05/2020) under the supervision of Rancho Acevedo M.D. A complete response was reported after re-staging CT scan. Consolidative radiotherapy was administered completing in September. An MRI ordered on December 04, 2020 identified a 1.8 cm x 1.4 cm left lateral basal ganglia lesion, a 1.3 cm x 1.5 cm frontal lobe lesion, two subcentimeter left periventricular lesions, a right cerebellar lesion, two left cerebellar lesions, a left temporal lobe lesion and a right occipital lobe lesion. He completed nine stereotactic radiosurgery procedures in January. A repeat MRI ordered on April 06, 2021 for post-radiosurgery surveillance identified a complete response to the aforementioned metastases excluding the katherin lesion which demonstrated no growth. New metastases had developed within the right frontal lobe (6.3 mm), the left anterior frontal lobe (6.3 mm), left parietal lobe (1 cm), left occipital lobe (1 cm), right lateral cerebellum (1.4 cm), right posterior cerebellum (1.3 cm), and left cerebellum (7.5 mm), respectively. The C2 vertebral body lesion was stable. The patient has received 24 Gy of a prescribed 24 Hernandez with an intensity modulated radiotherapy plan delivered utilizing stereotactic radiosurgery to the right frontal lobe metastasis. Upon review of systems, he reported occasional dysarthria. On physical examination, the patient weighed 127 lbs. His temperature was 98.4 ???F with a blood pressure of 105/71 mmHg. His pules was 102 bpm and the respiratory rate was 20 breaths per minute. Cranial nerves were intact. SRS to the right frontal lobe metastatic deposit was completed today. He will return for the next scheduled SRS procedure. Signed by: Dr. Rick Reyes 04/23/2021 11:24:06 AM
--- NOTE | 2021-04-23 11:47 | N.ONRD TS_ITS ---
Stereotactic Radiosurgery Treatment Summary Patient Name: Saman Orozco Date of : 1960 Date of Service: 04/23/2021 Attending Physician: Rick Reyes M.D. Saman Orozco has completed fractionated stereotactic radiosurgery for the management of right frontal lobe brain metastasis. He was diagnosed with extensive stage ([id number]) small cell lung cancer of the left upper lobe of the lung. He received 4 cycles of carboplatin and etoposide (04/09/20-08/05/2020) under the supervision of Rancho Acevedo M.D. A complete response was reported after re-staging CT scan. Consolidative radiotherapy was administered in September. An MRI ordered on December 04, 2020 identified a 1.8 cm x 1.4 cm left lateral basal ganglia lesion, a 1.3 cm x 1.5 cm frontal lobe lesion, two subcentimeter left periventricular lesions, a right cerebellar lesion, two left cerebellar lesions, a left temporal lobe lesion and a right occipital lobe lesion. He completed nine stereotactic radiosurgery procedures in January. A repeat MRI ordered on April 06, 2021 for post-radiosurgery surveillance identified a complete response to the aforementioned metastases excluding the katherin lesion which demonstrated no growth. New metastases had developed within the right frontal lobe (6.3 mm), the left anterior frontal lobe (6.3 mm), left parietal lobe (1 cm), left occipital lobe (1 cm), right lateral cerebellum (1.4 cm), right posterior cerebellum (1.3 cm), and left cerebellum (7.5 mm), respectively. The C2 vertebral body lesion was stable. SRS was performed on April 23, 2021. A prescribed dose of 24 Gy was delivered to the right frontal lobe metastasis in one fraction. The right frontal lobe metastatic deposit was treated utilizing and intensity modulated radiotherapy plan with a step and shoot treatment technique. The plan required four coplanar gomez and two non-coplanar ports. The coplanar gomez were designed using gantry angles of 200???, 240???, 280???, and 320??? and were associated with a collimator rotation of 0???. The minimum field size was 3.3 cm x 3 cm to a maximum of 3.6 cm x 3 cm. The planned SSD measured between a minimum of 94.8 cm to a maximum of 98 cm. The delivered monitor units for the referenced gantry angles were 584 MU, 809 MU, 835 MU, and 888 MU. An additional two non-coplanar ports were arranged with gantry angles of 240??? and 300??? with collimator rotations of 0??? a couch angle of 85???. The non-coplanar portal gomez measured 3.6 cm x 2 cm and 3 cm x 2 cm, respectively, with SSD measurements of 97.3 cm and 97.6 cm. The non-coplanar ports administered 804 MU and 750 MU. All treatments were performed with the [employer] linear accelerator and an isocentric technique. The dose was calculated by Anisotropic Analytic Algorithm. Low energy photons were prescribed with the plan normalized to deliver 100% of the prescription dose to 100% of the planning target volume. Signed by: Dr. Rick Reyes 04/23/2021 11:46:42 AM
== END 2021-04-23 23:59 | disposition home or self-care (01) ==
LOC: ONCMED 06:32
PROVIDERS: Internal Medicine Hematology & Oncology; PCP Nurse Practitioner Family; Visit Provider Radiology Radiation Oncology
DX: Z51.0 Encounter for antineoplastic radiation therapy (principal); C34.12 Malignant neoplasm of upper lobe, left bronchus or lung; C79.31 Secondary malignant neoplasm of brain; R47.1 Dysarthria and anarthria; Z79.899 Other long term (current) drug therapy
CPT/HCPCS: 36591; 70553; 77300; 77301; 77334; 77338; 77372; 77470; 80053; 85025; 96523; 99024; A9577

== ENCOUNTER → 2021-05-05 08:36 | Outpatient (BNVA) | payer MEDICAID, SELFPAY ==
[2021-04-28 15:59] VITALS: BMI 24.3
== END ==
PROVIDERS: PCP Nurse Practitioner Family; Referring Provider Internal Medicine Hematology & Oncology; Visit Provider Anesthesiology Pain Medicine
DX: G89.29 Other chronic pain (principal); M50.90 Cervical disc disorder, unspecified, unspecified cervical region; M54.12 Radiculopathy, cervical region; M43.12 Spondylolisthesis, cervical region; M79.601 Pain in right arm; C34.12 Malignant neoplasm of upper lobe, left bronchus or lung; F33.2 Major depressive disorder, recurrent severe without psychotic features; F43.12 Post-traumatic stress disorder, chronic; F12.20 Cannabis dependence, uncomplicated; Z79.891 Long term (current) use of opiate analgesic
CPT/HCPCS: 99214

== ENCOUNTER 2021-05-19 10:18 | Emergency (ER) | payer MEDICAID, SELFPAY ==
[2021-04-28 15:59] VITALS: BMI 24.3
--- NOTE | 2021-05-19 | XR_ITS ---
WS: [id number] Exam: XR elbow LT min 3V* 45710 Date/Time of Exam: 05/19/2021 12:00 AM Reason For Exam: FALL No fracture or dislocation. No joint effusion is identified. Normal soft tissues. XR/XR elbow LT min 3V* 58080 IMPRESSION: 1. No acute fracture or joint effusion.
[2021-05-19 10:32] VITALS: BP 137/89; PULSE 77; RESP 18; TEMP 37.3; O2SAT 98; BMI 19.8
[2021-05-19 10:46] VITALS: BP 138/92; PULSE 95; RESP 18; TEMP 37.3; O2SAT 94
--- NOTE | 2021-05-19 10:48 | ED_ITS ---
HPI - Fall General: Chief Complaint: Fall Stated Complaint: SHOULDER/ ELBOW/ HIP PAIN S/P FALL Time Seen by Provider: 05/19/21 10:29 History of Present Illness: HPI Narrative: Patient is a 61-year-old male comes to the ED after a fall. Patient has a history of lung and brain cancer and received radiation treatment yesterday. This morning when he woke up he lost his balance and fell at his house landing on left side of his body. He is having some left hip and left elbow pain currently. He rates his pain currently a 10 out of 10. He was able to ambulate on left hip but does endorse some pain. His right elbow hurts for him to bend it. He is also complaining of having some lower back and tailbone pain. Denies any head trauma or loss of consciousness. Associated symptoms-after fall: Denies abdominal pain, chest pain, headache(s), hematuria or neck pain Review of Systems Const: Denies: fever(s), chills or fatigue Eyes: Denies: change in vision or eye discomfort ENMT: Denies: throat pain, odynophagia, nasal discharge or nasal congestion Card: Denies: chest pain, palpitations, edema, swelling of feet/ankles, dyspnea on exertion or orthopnea Resp: Denies: dyspnea, productive cough or non-productive cough GI: Denies: abdominal pain, nausea, vomiting, diarrhea, constipation or hematochezia : Denies: flank pain, difficulty urinating, dysuria or hematuria Musc: Reports: extremity pain (Left hip and left elbow); Denies: neck pain, back pain or extremity swelling Skin/Breast: Denies: rash or new lesions Neuro: Denies: headache(s), numbness in extremities or weakness in extremities PFS ED PFSH: Medical History Major depressive disorder, recurrent severe without psychotic features Port-A-Cath in place (04/09/20) right subclavian Post-traumatic stress disorder, chronic Psychiatric care Small cell lung cancer Surgical History H/O neck surgery History of bronchoscopy Hx of tonsillectomy Family History Father Hypertension Diabetes Mother Cancer Social History Quit status (tobacco): has quit using tobacco Year quit tobacco: [id number] Second hand smoke exposure: Yes Smoking risk assessment/counseling performed?: Yes Tobacco counseling given: counseling >3 minutes Alcohol intake: former Desire information about substance/drug rehabilitation?: No Adopted: No Caregiver/support person: No Lives independently: Yes Household members: significant other Housing: Manufactured/Mobile home Marital status: Marital status details: 19 years with current partner Number of children: 2 Number of grandchildren: 8 Highest education level completed: 7th Grade service: No Current occupational status: retired and disabled Current occupational exposures/hazards: No Pets and animals: Yes (2 indoor dogs) Pets & animals: dog(s) History of recent travel: No Leisure activites: other Leisure activities details: watch TV Sexually active: Yes Current gender identity: Male Kandi/Restoration: None Special kandi needs: No Agree to transfusion: Yes Financial difficulty paying for basics: Somewhat Hard Physical Exam Const: COMMON NORMALS: no acute distress, patient oriented x3 and alert GENERAL APPEARANCE: cooperative and comfortable HENMT: COMMON NORMALS: normocephalic HEAD & SCALP: normocephalic MOUTH: Normal oral and palatal mucosa present THROAT: posterior oropharynx normal and uvula midline Eye: COMMON NORMALS: Equal, round and reactive pupils present PUPIL: Yes Equal, round and reactive pupils present Neck/C-Spine: COMMON NORMALS: supple GENERAL: Yes normal visual inspection Resp: COMMON NORMALS: normal respiratory effort, No retractions, No use of accessory muscles and clear to auscultation bilaterally AUSCULTATION: clear to auscultation bilaterally Cardio: COMMON NORMALS: regular rate, regular rhythm, S1 normal heart sound present, S2 normal heart sound present, No gallops present (Cardio), No clicks present (Cardio), No murmurs present (Cardio) and Peripheral pulses 2+ throughout RATE: regular rate RHYTHM: regular rhythm HEART SOUNDS: S1 normal heart sound present and S2 normal heart sound present PERIPHERAL PULSES: Peripheral pulses 2+ throughout GI: COMMON NORMALS: Normal to inspection, nondistended, normoactive bowel sounds present, Soft to palpation, non-tender and no masses PALPATION: Yes Soft to palpation : COMMON NORMALS: Yes no CVA tenderness BLADDER/KIDNEY EXAM: Yes no CVA tenderness Back/Pelvis: COMMON NORMALS: no CVA tenderness Extremity: GENERAL: Yes normal exam except as noted RIGHT UPPER EXTREMITY: Yes elbow joint (Superficial abrasions and mild swelling. No deformity noted) Right elbow: Yes inspection, Yes palpation (Tenderness over posterior aspect of elbow), Yes ROM (Limited due to pain) and Yes neurovascular exam (Intact.) LEFT LOWER EXTREMITY: Yes hip joint Left hip: Yes inspection (No deformity, no lower extremity shortening or externally rotated.) and Yes palpation (Mild tenderness over greater trochanteric) Neuro: COMMON NORMALS: patient oriented x3 and moves all extremities SENSORIUM/ORIENTATION: Yes alert Skin: GENERAL SKIN EXAM: dry skin Course Vital Signs: Vital signs: Vital Signs Temperature 98.8 F 05/19/21 13:12 Pulse Rate 75 05/19/21 13:12 Respiratory Rate 16 05/19/21 13:12 Blood Pressure 135/91 05/19/21 13:12 Pulse Oximetry 97 05/19/21 13:12 MDM - Fall MDM Narrative: Medical decision making narrative: Patient is a 61-year-old male comes to the ED after having a fall. He is complaining of having a right shoulder, right elbow, left hip, tailbone and lower back pain after fall. Denies any trauma or loss of consciousness. Exam is mostly benign. X-rays of lumbar spine and sacrum/coccyx showed no acute fractures. Left hip x-ray showed no acute fractures. Right shoulder right elbow showed no acute fractures. Patient diagnosed with lower back pain, left hip pain and right arm pain after an accidental fall. He was sent home with a prescription for Celebrex and methocarbamol. He was told to follow-up with his PCP in 7 to 10 days for reevaluation. Return to ED precautions given. Patient understood and agree with plan. Imaging Data^: Xray Ortho: Attestation: I personally reviewed and interpreted this imaging study as follows: Radiologist's impression: [address] [address] XRay Report Signed Patient: Saman Orozco Unit #: [id number] : 1960 Age/Sex: 61 / M ADM Date: 05/19/21 Loc: ER Room/Bed: Attending Dr: Ordering Provider/Ordering MD: Edwin,Radu PA Date of Service: 05/19/21 Procedure(s): XR sacrum coccyx min 2V 20605 Accession Number(s): [id number] Report Number: [id number] WS: [id number] Exam: XR sacrum coccyx min 2V 63232 Date/Time of Exam: 05/19/2021 11:55 AM Reason For Exam: fall with tail bone pain No acute fracture or dislocation. Mild DJD of the SI joints. Unremarkable soft tissues. XR/XR sacrum coccyx min 2V 31952 IMPRESSION: 1. No acute fracture or other significant finding. Mild SI joint DJD. Dictated By: Srikanth Bailey DO Signed By: Srikanth Bailey DO Signed Date/Time: 05/19/21 1224 DD/ 12[address] [place] [address] XRay Report Signed Patient: Saman Orozco Unit #: [id number] : 1960 Age/Sex: 61 / M ADM Date: 05/19/21 Loc: ER Room/Bed: Attending Dr: Ordering Provider/Ordering MD: Radu Pineda Date of Service: 05/19/21 Procedure(s): XR shoulder RT min 2V* 17399 Accession Number(s): [id number] Report Number: [id number] WS: [id number] Exam: XR shoulder RT min 2V* 83459 Date/Time of Exam: 05/19/2021 11:55 AM Reason For Exam: right shoulder pain after fall Comparison 07/04/2018. No acute fracture or dislocation. Normal soft tissues. XR/XR shoulder RT min 2V* 53856 IMPRESSION: 1. Negative right shoulder. Dictated By: Srikanth Bailey DO Signed By: Srikanth Bailey DO Signed Date/Time: 05/19/21 1220 DD/ [address]17 [place] [address] XRay Report Signed Patient: Saman Orozco Unit #: [id number] : 1960 Age/Sex: 61 / M ADM Date: 05/19/21 Loc: ER Room/Bed: Attending Dr: Ordering Provider/Ordering MD: Radu Pineda Date of Service: 05/19/21 Procedure(s): XR lumbar spine 2-3V* 04292 Accession Number(s): [id number] Report Number: [id number] WS: [id number] Exam: XR lumbar spine 2-3V* 17532 Date/Time of Exam: 05/19/2021 11:55 AM Reason For Exam: fall with low back pain Comparison 12/09/2014. No acute fracture or dislocation. Moderate disc degeneration from L2 to S1. Spondylosis. Facet DJD at all levels. Moderate levoscoliosis. Aortoiliac atherosclerosis. XR/XR lumbar spine 2-3V* 78352 IMPRESSION: 1. Moderately advanced degenerative changes. No fracture or malalignment. Dictated By: Srikanth Bailey DO Signed By: Srikanth Bailey DO Signed Date/Time: 05/19/21 1222 DD/ [address] [address] XRay Report Signed Patient: Saman Orozco Unit #: [id number] : 1960 Age/Sex: 61 / M ADM Date: 05/19/21 Loc: ER Room/Bed: Attending Dr: Ordering Provider/Ordering MD: Radu Pineda Date of Service: 05/19/21 Procedure(s): XR elbow RT min 3V* 04084 Accession Number(s): [id number] Report Number: [id number] WS: [id number] Exam: XR elbow RT min 3V* 88354 Date/Time of Exam: 05/19/2021 10:54 AM Reason For Exam: fall with elbow pain No fracture or dislocation. No joint effusion. A bone spur is noted along the olecranon process. Normal soft tissues. XR/XR elbow RT min 3V* 96635 IMPRESSION: 1. No acute fracture or dislocation. Dictated By: Srikanth Bailey DO Signed By: Srikanth Bailey DO Signed Date/Time: 05/19/21 1118 DD/ [address] [address] XRay Report Signed Patient: Saman Orozco Unit #: [id number] : 1960 Age/Sex: 61 / M ADM Date: 05/19/21 Loc: ER Room/Bed: Attending Dr: Ordering Provider/Ordering MD: Radu Pineda Date of Service: 05/19/21 Procedure(s): XR hip LT 2-3V wo/w pel* 12359 Accession Number(s): [id number] Report Number: [id number] WS: [id number] Exam: XR hip LT 2-3V wo/w pel* 63758 Date/Time of Exam: 05/19/2021 10:49 AM Reason For Exam: fall with hip pain Findings: No fractures or bone anomalies are noted. No unusual soft tissue masses or calcifications are seen. The bony elements of the hip are in adequate alignment. XR/XR hip LT 2-3V wo/w pel* 71722 IMPRESSION: Negative left hip. Tonnis classification: 0 Dictated By: Srikanth Bailey DO Signed By: Srikanth Bailey DO Signed Date/Time: 05/19/21 1123 DD/ 112 Discharge Plan Discharge Patient Disposition: Home Clinical Impression: Arm pain, right, Left hip pain Fall as cause of accidental injury at home as place of occurrence Qualifiers: Encounter type: initial encounter Qualified Code(s): W19.XXXA - Unspecified fall, initial encounter Lower back pain Qualifiers: Chronicity: acute Back pain laterality: bilateral Sciatica presence: without sciatica Qualified Code(s): M54.50 - Low back pain, unspecified Condition: Stable Prescriptions: New Celebrex 100 mg capsule 100 mg PO BID PRN (Reason: pain) Qty: 20 RF: 0 methocarbamol 750 mg tablet 750 mg PO Q8H PRN (Reason: back pain) Qty: 20 RF: 0 No Action albuterol sulfate [ProAir HFA] 90 mcg/actuation HFA aerosol inhaler 2 puff INHALATION QID PRN (Reason: shortness of breath or wheezing) 30 Days Qty: 18 RF: 4 paroxetine HCl [Paxil] 40 mg tablet 40 mg PO DAILY Qty: 30 RF: 2 aripiprazole [Abilify] 30 mg tablet 30 mg PO DAILY Qty: 30 RF: 2 Bevespi Aerosphere 9-4.8 mcg HFA aerosol inhaler 2 puff inhalation BID 30 Days Qty: 10.7 RF: 3 ondansetron HCl 8 mg tablet 8 mg PO Q8H RF: 0 prochlorperazine maleate 10 mg tablet 10 mg PO Q6H PRNRF: 0 fluticasone propionate [Flonase Allergy Relief] 50 mcg/actuation spray,suspension 1 spray intranasal BID 30 Days Qty: 15.8 RF: 4 oxycodone 15 mg tablet 15 mg PO QID PRN (Reason: Pain) RF: 0 Xanax 1 mg Tablet 1 mg PO .1 HOUR PRIOR TO MRI PRN (Reason: Anxiety) RF: 0 lisinopril 20 mg Tablet 20 mg PO DAILY RF: 0 dexamethasone 4 mg Tablet 4 mg PO DAILY RF: 0 omeprazole 20 mg Capsule,Delayed Release(Dr/Ec) 20 mg PO DAILY RF: 0 Discharge Orders: Discharge ED (Routine); Ordered 05/19/21 Ordered By: Radu Pineda Referrals: Dodie Hilton FNP [Primary Care Provider] - Discharge Diet: Regular Discharge Activity: Resume usual activity Patient Instructions: Fall Prevention for Older Adults (ED), Back Pain (ED) Activity Restrictions/Additional Instructions: Follow-up with medical provider as directed in 7 to 10 days for reevaluation. Take medications as prescribed. Methocarbamol is a muscle relaxer and can cause some drowsiness so take at night before bed. If you are to take methocarbamol during day use with caution. Return to the ER or your medical provider if condition worsens. Please read and understand discharge instructions. Thank you for choosing [facility] for your healthcare needs today. Please realize this is an emergency room and that we are providing you with a medical screening exam and this may not be complete and all inclusive of all the testing and or work up that you may need to determine your ailment or severity of your illness. It is very important that you follow up as instructed or that you return to the Emergency Department should you have concerns or if your condition changes or worsens in any way. Coding Level of Care Code ED Photographic Enlarger Operator for Vish Fwaleksey Exam Comprehensive
--- NOTE | 2021-05-19 10:49 | XR_ITS ---
WS: [id number] Exam: XR hip LT 2-3V wo/w pel* 51075 Date/Time of Exam: 05/19/2021 10:49 AM Reason For Exam: fall with hip pain Findings: No fractures or bone anomalies are noted. No unusual soft tissue masses or calcifications are seen. The bony elements of the hip are in adequate alignment. XR/XR hip LT 2-3V wo/w pel* 80209 IMPRESSION: Negative left hip. Tonnis classification: 0
--- NOTE | 2021-05-19 10:54 | XR_ITS ---
WS: [id number] Exam: XR elbow RT min 3V* 03707 Date/Time of Exam: 05/19/2021 10:54 AM Reason For Exam: fall with elbow pain No fracture or dislocation. No joint effusion. A bone spur is noted along the olecranon process. Norm al soft tissues. XR/XR elbow RT min 3V* 29393 IMPRESSION: 1. No acute fracture or dislocation.
[2021-05-19 11:30] VITALS: BP 145/87; PULSE 81; RESP 17; O2SAT 99
[2021-05-19 11:31] VITALS: RESP 17; O2SAT 99
[2021-05-19] MEDS: morphine 4 mg/mL SDV 1 mL IM (11:31)
--- NOTE | 2021-05-19 11:35 | PC.NURSE ---
Pt on shot time until 1150
--- NOTE | 2021-05-19 11:37 | XR_ITS ---
WS: [id number] Exam: XR lumbar spine 2-3V* 12581 Date/Time of Exam: 05/19/2021 11:55 AM Reason For Exam: fall with low back pain Comparison 12/09/2014. No acute fracture or dislocation. Moderate disc degeneration from L2 to S1. Spondylosis. Facet DJD at all levels. Moderate levoscoliosis. Aortoiliac atherosclerosis. XR/XR lumbar spine 2-3V* 25688 IMPRESSION: 1. Moderately advanced degenerative changes. No fracture or malalignment.
--- NOTE | 2021-05-19 11:37 | XR_ITS ---
WS: [id number] Exam: XR sacrum coccyx min 2V 86106 Date/Time of Exam: 05/19/2021 11:55 AM Reason For Exam: fall with tail bone pain No acute fracture or dislocation. Mild DJD of the SI joints. Unremarkable soft tissues. XR/XR sacrum coccyx min 2V 89640 IMPRESSION: 1. No acute fracture or other significant finding. Mild SI joint DJD.
--- NOTE | 2021-05-19 11:37 | XR_ITS ---
WS: [id number] Exam: XR shoulder RT min 2V* 66853 Date/Time of Exam: 05/19/2021 11:55 AM Reason For Exam: right shoulder pain after fall Comparison 07/04/2018. No acute fracture or dislocation. Normal soft tissues. XR/XR shoulder RT min 2V* 39491 IMPRESSION: 1. Negative right shoulder.
[2021-05-19 12:33] VITALS: BP 129/92; PULSE 79; RESP 17; O2SAT 96
[2021-05-19] MEDS: HYDROcodone-acetaminophen 7.5-325 mg Tablet 1 TAB PO (13:10)
[2021-05-19 13:12] VITALS: BP 135/91; PULSE 75; RESP 16; TEMP 37.1; O2SAT 97
== END 2021-05-19 13:14 | disposition home or self-care (01) ==
PROVIDERS: Emergency Provider Physician Assistant; PCP Nurse Practitioner Family
DX: M79.602 Pain in left arm (principal); M79.601 Pain in right arm; M25.552 Pain in left hip; M54.50 Low back pain, unspecified; Z79.891 Long term (current) use of opiate analgesic; W18.30XA Fall on same level, unspecified, initial encounter; Y93.9 Activity, unspecified; Y92.019 Unspecified place in single-family (private) house as the place of occurrence of the external cause; Z87.891 Personal history of nicotine dependence
CPT/HCPCS: 72100; 72220; 73030; 73080; 73502; 96372; 99283; J2270

== ENCOUNTER 2021-05-20 06:21 | Outpatient (RCR) | payer MEDICAID, SELFPAY ==
[2020-11-13 12:02] VITALS: BMI 24.3
--- NOTE | 2021-04-27 14:02 | N.ONRD TS_ITS ---
Stereotactic Radiosurgery Treatment Summary Patient Name: Saman Orozco Date of : 1960 Date of Service: 04/27/2021 Attending Physician: Rick Reyes M.D. Saman Orozco has completed fractionated stereotactic radiosurgery for the management of a left anterior frontal lobe brain metastasis. He was diagnosed with extensive stage ([id number]) small cell lung cancer of the left upper lobe of the lung. He received 4 cycles of carboplatin and etoposide (04/09/20-08/05/2020) under the supervision of Rancho Acevedo M.D. A complete response was reported after re-staging CT scan. Consolidative radiotherapy was administered in September. An MRI ordered on December 04, 2020 identified a 1.8 cm x 1.4 cm left lateral basal ganglia lesion, a 1.3 cm x 1.5 cm frontal lobe lesion, two subcentimeter left periventricular lesions, a right cerebellar lesion, two left cerebellar lesions, a left temporal lobe lesion and a right occipital lobe lesion. He completed nine stereotactic radiosurgery procedures in January. A repeat MRI ordered on April 06, 2021 for post-radiosurgery surveillance identified a complete response to the aforementioned metastases excluding the katherin lesion which demonstrated no growth. New metastases had developed within the right frontal lobe (6.3 mm), the left anterior frontal lobe (6.3 mm), left parietal lobe (1 cm), left occipital lobe (1 cm), right lateral cerebellum (1.4 cm), right posterior cerebellum (1.3 cm), and left cerebellum (7.5 mm), respectively. The C2 vertebral body lesion was stable. SRS was performed on April 27, 2021. A prescribed dose of 24 Gy was delivered to the left anterior frontal lobe metastasis in one fraction. The left anterior frontal lobe metastatic deposit was treated utilizing and intensity modulated radiotherapy plan with a step and shoot treatment technique. The plan required five coplanar gomez and two non-coplanar ports. The coplanar gomez were designed using gantry angles of 10???, 30???, 60???, 90???, and 120??? and were associated with a collimator rotation of 0???. The minimum field size was 3 cm x 1.5 cm to a maximum of 3.3 cm x 2.5 cm. The planned SSD measured between a minimum of 97.7 cm to a maximum of 98.6 cm. The delivered monitor units for the referenced gantry angles were 703 MU, 834 MU, 778 MU, 668 MU, and 740 MU. An additional two non-coplanar ports were arranged with gantry angles of 260??? and 310??? with a collimator rotation of 0??? a couch angle of 85???. The non-coplanar portal gomez measured 3.3 cm x 2 cm and 3.8 cm x 2 cm, respectively, with SSD measurements of 95.6 cm and 97 cm. The non-coplanar ports administered 931 MU and 812 MU. All treatments were performed with the [employer] linear accelerator and an isocentric technique. The dose was calculated by Anisotropic Analytic Algorithm. Low energy photons were prescribed with the plan normalized to deliver 100% of the prescription dose to 100% of the planning target volume. Signed by: Dr. Rick Reyes 04/27/2021 2:01:44 PM
--- NOTE | 2021-04-27 14:24 | ONCRAD TMN_ITS ---
Stereotactic Radiosurgery Treatment Management Note Patient Name: Saman Orozco Date of : 1960 Date of Service: 04/27/2021 Attending Physician: Rick Reyes M.D. Saman Orozco is a 60 year-old white male diagnosed extensive stage ([id number]) small cell lung cancer of the left upper lobe of the lung. He received 4 cycles of carboplatin and etoposide (04/09/20-08/05/2020) under the supervision of Rancho Acevedo M.D. A complete response was reported after re-staging CT scan. Consolidative radiotherapy was administered completing in September. An MRI ordered on December 04, 2020 identified a 1.8 cm x 1.4 cm left lateral basal ganglia lesion, a 1.3 cm x 1.5 cm frontal lobe lesion, two subcentimeter left periventricular lesions, a right cerebellar lesion, two left cerebellar lesions, a left temporal lobe lesion and a right occipital lobe lesion. He completed nine stereotactic radiosurgery procedures in January. A repeat MRI ordered on April 06, 2021 for post-radiosurgery surveillance identified a complete response to the aforementioned metastases excluding the katherin lesion which demonstrated no growth. New metastases had developed within the right frontal lobe (6.3 mm), the left anterior frontal lobe (6.3 mm), left parietal lobe (1 cm), left occipital lobe (1 cm), right lateral cerebellum (1.4 cm), right posterior cerebellum (1.3 cm), and left cerebellum (7.5 mm), respectively. The C2 vertebral body lesion was stable. The patient has received 24 Gy of a prescribed 24 Hernandez with an intensity modulated radiotherapy plan delivered utilizing stereotactic radiosurgery to the left anterior frontal lobe metastasis. Upon review of systems, he described significant fatigue. On physical examination, the patient weighed 128 lbs. His temperature was 97.3 ???F with a blood pressure of 103/68 mmHg. His pules was 100 bpm and the respiratory rate was 24 breaths per minute. Cranial nerves were intact. SRS to the left anterior frontal lobe metastatic deposit was completed today. He will return for the next scheduled SRS procedure. Signed by: Dr. Rick Reyes 04/27/2021 2:23:27 PM
--- NOTE | 2021-04-29 14:13 | N.ONRD TS_ITS ---
Stereotactic Radiosurgery Treatment Summary Patient Name: Saman Orozco Date of : 1960 Date of Service: 04/29/2021 Attending Physician: Rick Reyes M.D. Saman Orozco has completed fractionated stereotactic radiosurgery for the management of a left anterior frontal lobe brain metastasis. He was diagnosed with extensive stage ([id number]) small cell lung cancer of the left upper lobe of the lung. He received 4 cycles of carboplatin and etoposide (04/09/20-08/05/2020) under the supervision of Rancho Acevedo M.D. A complete response was reported after re-staging CT scan. Consolidative radiotherapy was administered in September. An MRI ordered on December 04, 2020 identified a 1.8 cm x 1.4 cm left lateral basal ganglia lesion, a 1.3 cm x 1.5 cm frontal lobe lesion, two subcentimeter left periventricular lesions, a right cerebellar lesion, two left cerebellar lesions, a left temporal lobe lesion and a right occipital lobe lesion. He completed nine stereotactic radiosurgery procedures in January. A repeat MRI ordered on April 06, 2021 for post-radiosurgery surveillance identified a complete response to the aforementioned metastases excluding the katherin lesion which demonstrated no growth. New metastases had developed within the right frontal lobe (6.3 mm), the left anterior frontal lobe (6.3 mm), left parietal lobe (1 cm), left occipital lobe (1 cm), right lateral cerebellum (1.4 cm), right posterior cerebellum (1.3 cm), and left cerebellum (7.5 mm), respectively. The C2 vertebral body lesion was stable. SRS was performed on April 29, 2021. A prescribed dose of 24 Gy was delivered to the left occipital lobe metastasis in one fraction. The left occipital lobe metastatic deposit was treated utilizing and intensity modulated radiotherapy plan with a step and shoot treatment technique. The plan required four coplanar gomez and two non-coplanar ports. The coplanar gomez were designed using gantry angles of 120???, 160???, 200???, and 240??? and were associated with a collimator rotation of 0???. The minimum field size was 3.3 cm x 2 cm to a maximum of 3.8 cm x 2 cm. The planned SSD measured between a minimum of 95.7 cm to a maximum of 97.3 cm. The delivered monitor units for the referenced gantry angles were 1234 MU, 1108 MU, 1110 MU, and 1230 MU. An additional two non-coplanar ports were arranged with gantry angles of 200??? and 230??? with a collimator rotation of 0??? and a couch angle of 85???. The non-coplanar portal gomez measured 3.8 cm x 2 cm and 3.8 cm x 2 cm, respectively, with SSD measurements of 97.2 cm and 96.4 cm. The non-coplanar ports administered 1017 MU and 1142 MU. All treatments were performed with the [employer] linear accelerator and an isocentric technique. The dose was calculated by Anisotropic Analytic Algorithm. Low energy photons were prescribed with the plan normalized to deliver 100% of the prescription dose to 100% of the planning target volume. Signed by: Dr. Rick Reyes 04/29/2021 2:19:37 PM
--- NOTE | 2021-04-29 14:39 | ONCRAD TMN_ITS ---
Stereotactic Radiosurgery Treatment Management Note Patient Name: Saman Orozco Date of : 1960 Date of Service: 04/29/2021 Attending Physician: Rick Reyes M.D. Saman Orozco is a 60 year-old white male diagnosed extensive stage ([id number]) small cell lung cancer of the left upper lobe of the lung. He received 4 cycles of carboplatin and etoposide (04/09/20-08/05/2020) under the supervision of Rancho Acevedo M.D. A complete response was reported after re-staging CT scan. Consolidative radiotherapy was administered completing in September. An MRI ordered on December 04, 2020 identified a 1.8 cm x 1.4 cm left lateral basal ganglia lesion, a 1.3 cm x 1.5 cm frontal lobe lesion, two subcentimeter left periventricular lesions, a right cerebellar lesion, two left cerebellar lesions, a left temporal lobe lesion and a right occipital lobe lesion. He completed nine stereotactic radiosurgery procedures in January. A repeat MRI ordered on April 06, 2021 for post-radiosurgery surveillance identified a complete response to the aforementioned metastases excluding the katherin lesion which demonstrated no growth. New metastases had developed within the right frontal lobe (6.3 mm), the left anterior frontal lobe (6.3 mm), left parietal lobe (1 cm), left occipital lobe (1 cm), right lateral cerebellum (1.4 cm), right posterior cerebellum (1.3 cm), and left cerebellum (7.5 mm), respectively. The C2 vertebral body lesion was stable. The patient has received 24 Gy of a prescribed 24 Hernandez with an intensity modulated radiotherapy plan delivered utilizing stereotactic radiosurgery to the left occipital lobe metastasis. Upon review of systems, he described significant fatigue, anorexia, and depression. On physical examination, the patient weighed 128 lbs. His temperature was 98.2 ???F with a blood pressure of 105/62 mmHg. His pules was 92 bpm and the respiratory rate was 24 breaths per minute. Cranial nerves were intact. SRS to the left occipital lobe metastatic deposit was completed today. He will return for the next scheduled SRS procedure. I will prescribe a glucocorticoid for appetite stimulation. Signed by: Dr. Rick Reyes 04/29/2021 2:38:30 PM
--- NOTE | 2021-05-01 11:35 | N.ONRD TS_ITS ---
Stereotactic Radiosurgery Treatment Summary Patient Name: Saman Orozco Date of : 1960 Date of Service: 05/01/2021 Attending Physician: Rick Reyes M.D. Saman Orozco has completed fractionated stereotactic radiosurgery for the management of a left anterior frontal lobe brain metastasis. He was diagnosed with extensive stage ([id number]) small cell lung cancer of the left upper lobe of the lung. He received 4 cycles of carboplatin and etoposide (04/09/20-08/05/2020) under the supervision of Rancho Acevedo M.D. A complete response was reported after re-staging CT scan. Consolidative radiotherapy was administered in September. An MRI ordered on December 04, 2020 identified a 1.8 cm x 1.4 cm left lateral basal ganglia lesion, a 1.3 cm x 1.5 cm frontal lobe lesion, two subcentimeter left periventricular lesions, a right cerebellar lesion, two left cerebellar lesions, a left temporal lobe lesion and a right occipital lobe lesion. He completed nine stereotactic radiosurgery procedures in January. A repeat MRI ordered on April 06, 2021 for post-radiosurgery surveillance identified a complete response to the aforementioned metastases excluding the katherin lesion which demonstrated no growth. New metastases had developed within the right frontal lobe (6.3 mm), the left anterior frontal lobe (6.3 mm), left parietal lobe (1 cm), left occipital lobe (1 cm), right lateral cerebellum (1.4 cm), right posterior cerebellum (1.3 cm), and left cerebellum (7.5 mm), respectively. The C2 vertebral body lesion was stable. SRS was performed on April 29, 2021. A prescribed dose of 24 Gy was delivered to the right posterior cerebellar lobe metastasis in one fraction. The right posterior cerebellar lobe metastatic deposit was treated utilizing and intensity modulated radiotherapy plan with a step and shoot treatment technique. The plan required nine coplanar gomez and three non-coplanar ports. The coplanar gomez were designed with gantry angles of 115???, 130???, 145???, 160??? 175???, 200???, 215???, 240???, and 255??? with a collimator rotation of 0???. The field sizes measured 1.8 cm x 1.8 cm within the X-direction and 1.5 cm x 1 cm within the Y-direction. The planned SSD measured between 93.4 cm to 95.5 cm. The delivered monitor units for the referenced gantry angles were 445 MU, 402 MU, 487 MU, 469 MU, 469 MU, 658 MU, 516 MU, 325 MU, and 1093 MU. An additional three non-coplanar ports were arranged with gantry angles of 190???, 220??? and 240???, respectively with a collimator rotation of 0??? and a couch angle of 85???. The non-coplanar portal gomez measured 1.8 cm x 1.8 cm within the X-direction and 1.5 cm x 1 cm within the Y-direction with SSD measurements of 92 cm to 95.3 cm. The non-coplanar ports administered 706 MU, 506 MU, and 930 MU, respectively. All treatments were performed with the [employer] linear accelerator and an isocentric technique. The dose was calculated by Anisotropic Analytic Algorithm. Low energy photons were prescribed with the plan normalized to deliver 100% of the prescription dose to 100% of the planning target volume. Signed by: Dr. Rick Reyes 05/01/2021 11:34:23 AM
--- NOTE | 2021-05-01 11:50 | ONCRAD TMN_ITS ---
Stereotactic Radiosurgery Treatment Management Note Patient Name: Saman Orozco Date of : 1960 Date of Service: 05/01/2021 Attending Physician: Rick Reyes M.D. Saman Orozco is a 60 year-old white male diagnosed extensive stage ([id number]) small cell lung cancer of the left upper lobe of the lung. He received 4 cycles of carboplatin and etoposide (04/09/20-08/05/2020) under the supervision of Rancho Acevedo M.D. A complete response was reported after re-staging CT scan. Consolidative radiotherapy was administered completing in September. An MRI ordered on December 04, 2020 identified a 1.8 cm x 1.4 cm left lateral basal ganglia lesion, a 1.3 cm x 1.5 cm frontal lobe lesion, two subcentimeter left periventricular lesions, a right cerebellar lesion, two left cerebellar lesions, a left temporal lobe lesion and a right occipital lobe lesion. He completed nine stereotactic radiosurgery procedures in January. A repeat MRI ordered on April 06, 2021 for post-radiosurgery surveillance identified a complete response to the aforementioned metastases excluding the katherin lesion which demonstrated no growth. New metastases had developed within the right frontal lobe (6.3 mm), the left anterior frontal lobe (6.3 mm), left parietal lobe (1 cm), left occipital lobe (1 cm), right lateral cerebellum (1.4 cm), right posterior cerebellum (1.3 cm), and left cerebellum (7.5 mm), respectively. The C2 vertebral body lesion was stable. The patient has received 24 Gy of a prescribed 24 Hernandez with an intensity modulated radiotherapy plan delivered utilizing stereotactic radiosurgery to the right posterior cerebellar lobe metastasis. Upon review of systems, he reported continued fatigue. On physical examination, the patient weighed 126 lbs. His temperature was 98 ???F with a blood pressure of 92/60 mmHg. His pulse was 92 bpm and the respiratory rate was 24 breaths per minute. Cranial nerves were intact. SRS to the right posterior cerebellar lobe metastatic deposit was completed today. He will return for the next scheduled SRS procedure. Signed by: Dr. Rick Reyes 05/01/2021 11:49:01 AM
--- NOTE | 2021-05-05 13:54 | N.ONRD TS_ITS ---
Stereotactic Radiosurgery Treatment Summary Patient Name: Saman Orozco Date of : 1960 Date of Service: 05/05/2021 Attending Physician: Rick Reyes M.D. Saman Orozco has completed fractionated stereotactic radiosurgery for the management of a left anterior frontal lobe brain metastasis. He was diagnosed with extensive stage ([id number]) small cell lung cancer of the left upper lobe of the lung. He received 4 cycles of carboplatin and etoposide (04/09/20-08/05/2020) under the supervision of Rancho Acevedo M.D. A complete response was reported after re-staging CT scan. Consolidative radiotherapy was administered in September. An MRI ordered on December 04, 2020 identified a 1.8 cm x 1.4 cm left lateral basal ganglia lesion, a 1.3 cm x 1.5 cm frontal lobe lesion, two subcentimeter left periventricular lesions, a right cerebellar lesion, two left cerebellar lesions, a left temporal lobe lesion and a right occipital lobe lesion. He completed nine stereotactic radiosurgery procedures in January. A repeat MRI ordered on April 06, 2021 for post-radiosurgery surveillance identified a complete response to the aforementioned metastases excluding the katherin lesion which demonstrated no growth. New metastases had developed within the right frontal lobe (6.3 mm), the left anterior frontal lobe (6.3 mm), left parietal lobe (1 cm), left occipital lobe (1 cm), right lateral cerebellum (1.4 cm), right posterior cerebellum (1.3 cm), and left cerebellum (7.5 mm), respectively. The C2 vertebral body lesion was stable. SRS was performed on May 05, 2021. A prescribed dose of 24 Gy was delivered to the left cerebellar lobe metastasis in one fraction. The left cerebellar lobe metastatic deposit was treated utilizing and intensity modulated radiotherapy plan with a step and shoot treatment technique. The plan required five coplanar gomez and one non-coplanar port. The coplanar gomez were designed with gantry angles of 100???, 120???, 160???, 200???, and 220??? with a collimator rotation of 0???. The field sizes measured a minimum of 2.8 cm x 1.5 cm to a maximum of 3 cm x 2.5 cm. The planned SSD measured between 93 cm to 96 cm. The delivered monitor units for the referenced gantry angles were 1607 MU, 566 MU, 1124 MU, 841 MU, and 767 MU. An additional non-coplanar port was arranged with a gantry angle of 200??? with a collimator rotation of 0??? and a couch angle of 85???. The non-coplanar portal field measured 1.8 cm x 1.8 cm within the X-direction and 1 cm x 0.5 cm within the Y-direction with a SSD measurement of 94.1 cm. The non-coplanar port administered 949 MU, All treatments were performed with the [employer] linear accelerator and an isocentric technique. The dose was calculated by Anisotropic Analytic Algorithm. Low energy photons were prescribed with the plan normalized to deliver 100% of the prescription dose to 100% of the planning target volume. Signed by: Dr. Rick Reyes 05/05/2021 1:52:55 PM
--- NOTE | 2021-05-05 14:17 | ONCRAD TMN_ITS ---
Stereotactic Radiosurgery Treatment Management Note Patient Name: Saman Orozco Date of : 1960 Date of Service: 05/05/2021 Attending Physician: Rick Reyes M.D. Saman Orozco is a 60 year-old white male diagnosed extensive stage ([id number]) small cell lung cancer of the left upper lobe of the lung. He received 4 cycles of carboplatin and etoposide (04/09/20-08/05/2020) under the supervision of Rancho Acevedo M.D. A complete response was reported after re-staging CT scan. Consolidative radiotherapy was administered completing in September. An MRI ordered on December 04, 2020 identified a 1.8 cm x 1.4 cm left lateral basal ganglia lesion, a 1.3 cm x 1.5 cm frontal lobe lesion, two subcentimeter left periventricular lesions, a right cerebellar lesion, two left cerebellar lesions, a left temporal lobe lesion and a right occipital lobe lesion. He completed nine stereotactic radiosurgery procedures in January. A repeat MRI ordered on April 06, 2021 for post-radiosurgery surveillance identified a complete response to the aforementioned metastases excluding the katherin lesion which demonstrated no growth. New metastases had developed within the right frontal lobe (6.3 mm), the left anterior frontal lobe (6.3 mm), left parietal lobe (1 cm), left occipital lobe (1 cm), right lateral cerebellum (1.4 cm), right posterior cerebellum (1.3 cm), and left cerebellum (7.5 mm), respectively. The C2 vertebral body lesion was stable. The patient has received 24 Gy of a prescribed 24 Hernandez with an intensity modulated radiotherapy plan delivered utilizing stereotactic radiosurgery to the left cerebellar lobe metastasis. Upon review of systems, he denied significant changes in his neurological symptoms. On physical examination, the patient weighed 125 lbs. His temperature was 98.2 ???F with a blood pressure of 107/70 mmHg. His pulse was 118 bpm and the respiratory rate was 22 breaths per minute. Cranial nerves were intact. SRS to the left cerebellar lobe metastatic deposit was completed today. He will return for the next scheduled SRS procedure. I will decrease the oxycodone dosage to 10 mg and begin a taper at the patient???s request. Signed by: Dr. Rick Reyes 05/05/2021 2:15:33 PM
--- NOTE | 2021-05-20 13:34 | N.ONRD TS_ITS ---
Stereotactic Radiosurgery Treatment Summary Patient Name: Saman Orozco Date of : 1960 Date of Service: 05/20/2021 Attending Physician: Rick Reyes M.D. Saman Orozco has completed fractionated stereotactic radiosurgery for the management of a left anterior frontal lobe brain metastasis. He was diagnosed with extensive stage ([id number]) small cell lung cancer of the left upper lobe of the lung. He received 4 cycles of carboplatin and etoposide (04/09/20-08/05/2020) under the supervision of Rancho Acevedo M.D. A complete response was reported after re-staging CT scan. Consolidative radiotherapy was administered in September. An MRI ordered on December 04, 2020 identified a 1.8 cm x 1.4 cm left lateral basal ganglia lesion, a 1.3 cm x 1.5 cm frontal lobe lesion, two subcentimeter left periventricular lesions, a right cerebellar lesion, two left cerebellar lesions, a left temporal lobe lesion and a right occipital lobe lesion. He completed nine stereotactic radiosurgery procedures in January. A repeat MRI ordered on April 06, 2021 for post-radiosurgery surveillance identified a complete response to the aforementioned metastases excluding the katherin lesion which demonstrated no growth. New metastases had developed within the right frontal lobe (6.3 mm), the left anterior frontal lobe (6.3 mm), left parietal lobe (1 cm), left occipital lobe (1 cm), right lateral cerebellum (1.4 cm), right posterior cerebellum (1.3 cm), and left cerebellum (7.5 mm), respectively. The C2 vertebral body lesion was stable. SRS was performed on the dates May 11, 2021 through May 20, 2021. A prescribed dose of 30 Gy was delivered to the right lateral cerebellar lobe metastasis in five fractions encompassing 10 days. The right lateral cerebellar lobe metastatic deposit was treated utilizing and intensity modulated radiotherapy plan with a step and shoot treatment technique. The plan required six coplanar gomez. The coplanar gomez were designed with gantry angles of 140???, 160???, 190???, 210???, 240???, and 260??? with a collimator rotation of 0???. The field sizes spanned from 3.8 cm x 3 cm to 4.8 cm x 3.3 cm. The planned SSD measured a minimum of 91.9 cm to a maximum of 96.8 cm. The delivered monitor units for the referenced gantry angles were 280 MU, 247 MU, 223 MU, 249 MU, 131 MU, and 290 MU. All treatments were performed with the [employer] linear accelerator and an isocentric technique. The dose was calculated by Anisotropic Analytic Algorithm. Low energy photons were prescribed with the plan normalized to deliver 100% of the prescription dose to 100% of the planning target volume. Signed by: Dr. Rick Reyes 05/20/2021 1:32:51 PM
--- NOTE | 2021-05-20 13:51 | ONCRAD TMN_ITS ---
Stereotactic Radiosurgery Treatment Management Note Patient Name: Saman Orozco Date of : 1960 Date of Service: 05/20/2021 Attending Physician: Rick Reyes M.D. Saman Orozco is a 60 year-old white male diagnosed extensive stage ([id number]) small cell lung cancer of the left upper lobe of the lung. He received 4 cycles of carboplatin and etoposide (04/09/20-08/05/2020) under the supervision of Rancho Acevedo M.D. A complete response was reported after re-staging CT scan. Consolidative radiotherapy was administered completing in September. An MRI ordered on December 04, 2020 identified a 1.8 cm x 1.4 cm left lateral basal ganglia lesion, a 1.3 cm x 1.5 cm frontal lobe lesion, two subcentimeter left periventricular lesions, a right cerebellar lesion, two left cerebellar lesions, a left temporal lobe lesion and a right occipital lobe lesion. He completed nine stereotactic radiosurgery procedures in January. A repeat MRI ordered on April 06, 2021 for post-radiosurgery surveillance identified a complete response to the aforementioned metastases excluding the katherin lesion which demonstrated no growth. New metastases had developed within the right frontal lobe (6.3 mm), the left anterior frontal lobe (6.3 mm), left parietal lobe (1 cm), left occipital lobe (1 cm), right lateral cerebellum (1.4 cm), right posterior cerebellum (1.3 cm), and left cerebellum (7.5 mm), respectively. The C2 vertebral body lesion was stable. The patient has received 30 Gy of a prescribed 30 Hernandez with an intensity modulated radiotherapy plan delivered utilizing stereotactic radiosurgery to the right lateral cerebellar lobe metastasis. Upon review of systems, he denied significant changes in his neurological symptoms. On physical examination, the patient weighed 124 lbs. His temperature was 97.4 ???F with a blood pressure of 105/70 mmHg. His pulse was 110 bpm and the respiratory rate was 22 breaths per minute. Cranial nerves were intact. SRS to the right lateral cerebellar lobe metastatic deposit was completed today. He will return as scheduled. An MRI will be ordered prior to this appointment. Signed by: Dr. Rick Reyes 05/20/2021 1:50:07 PM
== END 2021-05-24 23:59 | disposition home or self-care (01) ==
LOC: ONCMED 06:21
PROVIDERS: PCP Nurse Practitioner Family; Visit Provider Radiology Radiation Oncology
DX: Z51.0 Encounter for antineoplastic radiation therapy; C34.12 Malignant neoplasm of upper lobe, left bronchus or lung; C79.31 Secondary malignant neoplasm of brain; D70.1 Agranulocytosis secondary to cancer chemotherapy; T45.1X5D Adverse effect of antineoplastic and immunosuppressive drugs, subsequent encounter; Z79.891 Long term (current) use of opiate analgesic
CPT/HCPCS: 77300; 77336; 77338; 77372; 77373; 96523; 99214

== ENCOUNTER 2021-05-25 19:03 | Emergency (ER) | payer MEDICAID, SELFPAY ==
[2021-04-28 15:59] VITALS: BMI 24.3
[2021-05-25 19:13] VITALS: BP 140/98; PULSE 111; RESP 16; TEMP 37; O2SAT 98; BMI 20.5
--- NOTE | 2021-05-25 19:14 | XRR_ITS ---
PROCEDURE INFORMATION: Exam: XR Chest Exam date and time: 05/25/2021 7:14 PM Age: 61 years old Clinical indication: Dyspnea; Additional info: Weakness TECHNIQUE: Imaging protocol: XR of the chest. Views: 1 view. COMPARISON: CR XR chest 1V portable [id number] 03/13/2021 12:17 PM FINDINGS: Tubes, catheters and devices: Right subclavian Port-A-Cath with the tip in the SVC, stable in position. Lungs: Clearing of left lingular and left lower lobe airspace disease. Residual scarring in the left lower lobe and left lingula. No focal consolidation. No pulmonary edema. Pleural spaces: No pleural effusion. No pneumothorax. Heart/Mediastinum: Stable mild enlargement of the cardiac silhouette. Mediastinal contours are unremarkable. Vasculature: Stable vascular calcifications in the aorta. Bones/joints: Degenerative changes in the spine and shoulders. Patient has had a previous fusion in the visualized cervical spine. XR/XR chest 1V portable [id number] IMPRESSION: 1. No acute cardiopulmonary process. 2. Incidental/nonacute findings are listed in the report. Radiation Dose CTDIVOL = (mGy): DLP = (mGy-cm)
--- NOTE | 2021-05-25 19:14 | CTR_ITS ---
PROCEDURE INFORMATION: Exam: CT Head Without Contrast Exam date and time: 05/25/2021 7:14 PM Age: 61 years old Clinical indication: Injury or trauma; Fall; Blunt trauma (contusions or hematomas); Weakness, extremity TECHNIQUE: Imaging protocol: Computed tomography of the head without contrast. Sagittal and coronal reformatted images were created and reviewed. Radiation optimization: All CT scans at this facility use at least one of these dose optimization techniques: automated exposure control; mA and/or kV adjustment per patient size (includes targeted exams where dose is matched to clinical indication); or iterative reconstruction. COMPARISON: MR head wo/w con [id number] 04/06/2021 10:22 AM RADIATION DOSE METRICS: Total DLP (mGy-cm): 900.54 FINDINGS: Brain: There is a mass with increased density posteriorly in the right cerebellar hemisphere. Increased density is likely due to calcification within a metastatic focus. This has decreased in size and now measures 0.6 x 1.3 x 1.2 cm, previously measured 1.1 x 1.8 x 1.5 cm (series 602, image 28 and series 2, image 30). Mild cerebral edema around the mass is stable. There is a 2nd small area of calcification more superiorly and medially in the right cerebellum. This corresponds to a small mass noted on the prior MRI, also likely representing calcification within a metastatic focus. The mass itself in this area is not definitely visualized, and other additional lesions noted on the prior MRI are also not visualized on the current non contrasted CT scan. No acute intracranial hemorrhage. No acute infarct. No midline shift. No extra-axial fluid collections. Mild cerebral volume loss. Cerebral ventricles: No hydrocephalus. Paranasal sinuses: Visualized paranasal sinuses are clear. Mastoid air cells: Mastoid air cells are clear bilaterally. Orbital cavity: No acute abnormality in the visualized orbits. Vasculature: Atherosclerotic changes in the visualized arteries. Atherosclerotic changes in the visualized arteries. Bones/joints: No acute fracture. Soft tissues: No acute abnormality of the extracranial soft tissues. CT/CT head wo con* [id number] IMPRESSION: 1. No acute abnormality of the brain. 2. Mass consistent with a metastatic focus has in the right cerebellar hemisphere has decreased in size. Increased density is likely due to calcification. Mild cerebral edema around the mass is stable. There is a 2nd small area of calcification more superiorly and medially in the right cerebellum. This corresponds to a small mass noted on the prior MRI, also likely representing calcification within a metastatic focus. The mass itself in this area is not definitely visualized, and other additional lesions noted on the prior MRI are also not visualized on the current non contrasted CT scan. 3. Incidental/nonacute findings are listed in the report. Radiation Dose CTDIVOL = (mGy): DLP = 900.54 (mGy-cm)
--- NOTE | 2021-05-25 19:18 | W.ED.NAVMDI ---
HPI - Nausea/Vomiting/Diarrhea General: Chief complaint: Nausea/Vomiting/Diarrhea Stated complaint: WEAKNESS, CHEMO/BRAIN CA Time Seen by Provider: 05/25/21 19:04 Source: patient Mode of arrival: ambulatory Limitations: no limitations History of Present Illness: HPI Narrative: 61-year-old male who has a history of brain cancer who states he just finished chemo and radiation on Tuesday. He states that since then he has been having nausea vomiting some diarrhea and just generalized weakness. He states he had weakness since he has been doing his chemo denies any fever denies any pain anywhere. Denies any chest pain denies any head injury. Denies any worsening proving factors. Associated nausea: Yes Associated symtoms: Reports nausea; Denies chest pain or dysuria Review of Systems Const: Denies: fever(s), chills, body aches or change in appetite Eyes: Denies: blurry vision or eye discomfort ENMT: Denies: throat pain or dental pain Card: Denies: chest pain Resp: Denies: dyspnea GI: Reports: nausea and vomiting : Denies: dysuria Musc: Denies: neck pain or back pain Skin/Breast: Denies: rash Neuro: Reports: weakness in extremities Psych: Denies: depression Berto/Lymph: Denies: easy bruising All/Imm: Denies: urticaria PFSH ED PFSH: Medical History Major depressive disorder, recurrent severe without psychotic features Port-A-Cath in place (04/09/20) right subclavian Post-traumatic stress disorder, chronic Psychiatric care Small cell lung cancer Surgical History H/O neck surgery History of bronchoscopy Hx of tonsillectomy Family History Father Hypertension Diabetes Mother Cancer Social History Quit status (tobacco): has quit using tobacco Year quit tobacco: [id number] Second hand smoke exposure: Yes Smoking risk assessment/counseling performed?: Yes Tobacco counseling given: counseling >3 minutes Alcohol intake: former Desire information about substance/drug rehabilitation?: No Adopted: No Caregiver/support person: No Lives independently: Yes Household members: significant other Housing: Manufactured/Mobile home Marital status: Marital status details: 19 years with current partner Number of children: 2 Number of grandchildren: 8 Highest education level completed: 7th Grade service: No Current occupational status: retired and disabled Current occupational exposures/hazards: No Pets and animals: Yes (2 indoor dogs) Pets & animals: dog(s) History of recent travel: No Leisure activites: other Leisure activities details: watch TV Sexually active: Yes Current gender identity: Male Kandi/Episcopalian: None Special kandi needs: No Agree to transfusion: Yes Financial difficulty paying for basics: Somewhat Hard Physical Exam Const: COMMON NORMALS: no acute distress, patient oriented x3 and healthy appearing HENMT: COMMON NORMALS: normocephalic and atraumatic HEAD & SCALP: normocephalic and atraumatic Eye: COMMON NORMALS: Equal, round and reactive pupils present and EOMs intact bilaterally PUPIL: Yes Equal, round and reactive pupils present Neck/C-Spine: COMMON NORMALS: full ROM and supple Chest: COMMONS NORMALS: normal inspection of the chest and normal palpation of entire chest wall Resp: COMMON NORMALS: normal respiratory effort, No retractions, No use of accessory muscles and clear to auscultation bilaterally AUSCULTATION: clear to auscultation bilaterally Cardio: COMMON NORMALS: regular rate, regular rhythm and No murmurs present (Cardio) RATE: regular rate RHYTHM: regular rhythm GI: COMMON NORMALS: Normal to inspection, nondistended, normoactive bowel sounds present, Soft to palpation, non-tender and no masses PALPATION: Yes Soft to palpation Extremity: COMMON NORMALS: normal to inspection and full ROM Neuro: COMMON NORMALS: patient oriented x3, moves all extremities and no focal motor deficits Psych: COMMON NORMALS: mental status grossly normal, Normal thought process present and cooperative THOUGHT PROCESS: Normal thought process present Skin: COMMON NORMALS: no rashes or lesions noted and no wounds GENERAL SKIN EXAM: no rashes or lesions noted Course Vital Signs: Vital signs: Vital Signs Temperature 98.6 F 05/25/21 19:13 Pulse Rate 111 H 05/25/21 19:13 Respiratory Rate 22 H 05/25/21 20:46 Blood Pressure 140/98 05/25/21 19:13 Pulse Oximetry 98 05/25/21 20:11 MDM - Nausea/Vomiting/Diarrhea MDM Narrative: Medical decision making narrative: Patient presents with weakness neck pain along with multiple falls likely due to his cancer and chemo he has no signs of infection head CT neck CT here shows no acute findings. I did speak to patient and offered him admission he refuses states he just like to go back home. I spoke to his daughter to talk to him about possible snf as he has been having more falls but he refuses at this time we will have him follow-up with his PCP and return if worsening he understands agrees to plan. Lab Data: Labs: Lab Results 05/25/21 05/25/21 05/25/21 18:36 18:36 18:36 WBC 10.7 10^3/uL H 10 ^3/uL (4.0-10.0) RBC 4.13 10^6/uL 10^6 /uL (4.1-5.3) Hgb 11.3 g/dL L g/dL (11.7-16.6) Hct 37.9 % L % (42.0-52.0) MCV 91.8 fl fl (80-94) MCH 27.4 pg L pg (28.0-34.0) MCHC 29.8 g/dL L g/dL (30.0-36.0) RDW 17.4 % H % (12.1-15.1) Plt Count 342 10^3/cmm 10^3 /cmm (130-400) MPV 9.5 fL fL (7.4-10.4) Neut % (Auto) 90.5 % % Lymph % (Auto) 2.2 % % Rush % (Auto) 5.9 % % Eos % (Auto) 1.0 % % Baso % (Auto) 0.2 % % Neut # (Auto) 9.69 10^3/uL H 10 ^3/uL (1.8-7.7) Lymph # (Auto) 0.2 10^3/uL L 10^ 3/uL (0.8-4.8) Rush # (Auto) 0.6 10^3/uL 10^3/ uL (0.2-0.9) Eos # (Auto) 0.1 10^3/uL 10^3/ uL (0.0-0.8) Baso # (Auto) 0.0 10^3/uL 10^3/ uL (0.0-0.1) Nucleated RBC % (a uto) 0 % % Nucleated RBCs # 0.0 /100WBC /100W BC Sodium 135 mmol/L L mmol /L (136-145) Potassium 3.7 mmol/L mmol/L (3.5-5.1) Chloride 98 mmol/L mmol/L (98-107) Carbon Dioxide 26 mmol/L mmol/L (22-29) Anion Gap 14.7 (5-19) BUN 14 mg/dL mg/dL (8-23) Creatinine 0.7 mg/dL mg/dL (0.7-1.2) GFR Calculation 113.9 mL/min mL/m in (90-130) Glucose 93 mg/dL mg/dL (65-115) Calculated Osmolal ity 280 mOsm/kg L mOs m/kg (285-295) Calcium 9.6 mg/dL mg/dL (8.5-10.5) Magnesium 2.1 mg/dL mg/dL (1.7-2.3) Total Bilirubin 0.4 mg/dL mg/dL (0.15-1.2) AST 15 U/L U/L (0-40) ALT 14 U/L U/L (0-41) Alkaline Phosphata se 79 IU/L IU/L (40-130) Troponin T Baselin e 43 ng/L H ng/L (0-15) Troponin T 120 Min [place] Troponin T Total Protein 7.9 g/dL g/dL (6.6-8.7) Albumin 4.1 g/dL g/dL (3.5-5.2) Globulin 3.8 g/dL g/dL (1.3-4.6) Urine Color Urine Appearance Urine pH Ur Specific Gravit y Urine Protein Urine Glucose (UA) Urine Ketones Urine Blood Urine Nitrate Urine Bilirubin Urine Urobilinogen Ur Leukocyte Etelvina ase Urine RBC Urine WBC Ur Squamous Epith Cells Calcium Oxalate Cr ystal Amorphous Sediment Urine Bacteria 05/25/21 05/25/21 21:11 22:40 WBC RBC Hgb Hct MCV MCH MCHC RDW Plt Count MPV Neut % (Auto) Lymph % (Auto) Rush % (Auto) Eos % (Auto) Baso % (Auto) Neut # (Auto) Lymph # (Auto) Rush # (Auto) Eos # (Auto) Baso # (Auto) Nucleated RBC % (a uto) Nucleated RBCs # Sodium Potassium Chloride Carbon Dioxide Anion Gap BUN Creatinine GFR Calculation Glucose Calculated Osmolal ity Calcium Magnesium Total Bilirubin AST ALT Alkaline Phosphata se Troponin T Baselin e Troponin T 120 Min [place] 35.62 ng/L H ng/L (0-15) Delta Troponin T -7.38 ABS# L ABS# (0-10) Total Protein Albumin Globulin Urine Color Yellow (Yellow) Urine Appearance Clear (CLEAR) Urine pH 5 (5-7) Ur Specific Gravit y 1.010 (1.005-1.030) Urine Protein Neg (Negative) Urine Glucose (UA) Norm (Normal) Urine Ketones Negative (Negative) Urine Blood 3+ H (Negative) Urine Nitrate Negative (Negative) Urine Bilirubin Neg (Negative) Urine Urobilinogen Norm mg/dL mg/dL (Negative) Ur Leukocyte Etelvina ase Negative (Negative) Urine RBC 0-4 /hpf H /hpf (0-2) Urine WBC 5-10 /hpf H /hpf (0-5) Ur Squamous Epith Cells Rare /hpf /hpf (0-5) Calcium Oxalate Cr ystal 0-4 /hpf H /hpf Amorphous Sediment Not Reportable Urine Bacteria None /hpf /hpf (NONE) Imaging Data^: CT Head: Attestation: I personally reviewed and interpreted this imaging study as follows: Radiologist's impression: [address] [address] [address] Scan Report Signed Patient: Saman Orozco Unit #: [id number] : 1960 Age/Sex: 61 / M ADM Date: 05/25/21 Loc: ER Room/Bed: Attending Dr: Ordering Provider/Ordering MD: Jeimy Freire MD Date of Service: 05/25/21 Procedure(s): CT head wo con* [id number] Accession Number(s): [id number] Report Number: [id number] PROCEDURE INFORMATION: Exam: CT Head Without Contrast Exam date and time: 05/25/2021 7:14 PM Age: 61 years old Clinical indication: Injury or trauma; Fall; Blunt trauma (contusions or hematomas); Weakness, extremity TECHNIQUE: Imaging protocol: Computed tomography of the head without contrast. Sagittal and coronal reformatted images were created and reviewed. Radiation optimization: All CT scans at this facility use at least one of these dose optimization techniques: automated exposure control; mA and/or kV adjustment per patient size (includes targeted exams where dose is matched to clinical indication); or iterative reconstruction. COMPARISON: MR head wo/w con [id number] 04/06/2021 10:22 AM RADIATION DOSE METRICS: Total DLP (mGy-cm): 900.54 FINDINGS: Brain: There is a mass with increased density posteriorly in the right cerebellar hemisphere. Increased density is likely due to calcification within a metastatic focus. This has decreased in size and now measures 0.6 x 1.3 x 1.2 cm, previously measured 1.1 x 1.8 x 1.5 cm (series 602, image 28 and series 2, image 30). Mild cerebral edema around the mass is stable. There is a 2nd small area of calcification more superiorly and medially in the right cerebellum. This corresponds to a small mass noted on the prior MRI, also likely representing calcification within a metastatic focus. The mass itself in this area is not definitely visualized, and other additional lesions noted on the prior MRI are also not visualized on the current non contrasted CT scan. No acute intracranial hemorrhage. No acute infarct. No midline shift. No extra-axial fluid collections. Mild cerebral volume loss. Cerebral ventricles: No hydrocephalus. Paranasal sinuses: Visualized paranasal sinuses are clear. Mastoid air cells: Mastoid air cells are clear bilaterally. Orbital cavity: No acute abnormality in the visualized orbits. Vasculature: Atherosclerotic changes in the visualized arteries. Atherosclerotic changes in the visualized arteries. Bones/joints: No acute fracture. Soft tissues: No acute abnormality of the extracranial soft tissues. CT/CT head wo con* [id number] IMPRESSION: 1. No acute abnormality of the brain. 2. Mass consistent with a metastatic focus has in the right cerebellar hemisphere has decreased in size. Increased density is likely due to calcification. Mild cerebral edema around the mass is stable. There is a 2nd small area of calcification more superiorly and medially in the right cerebellum. This corresponds to a small mass noted on the prior MRI, also likely representing calcification within a metastatic focus. The mass itself in this area is not definitely visualized, and other additional lesions noted on the prior MRI are also not visualized on the current non contrasted CT scan. 3. Incidental/nonacute findings are listed in the report. Radiation Dose CTDIVOL = (mGy): DLP = 900.54 (mGy-cm) Dictated By: Alayna Avila MD Signed By: Alayna Avila MD Signed Date/Time: 05/25/212007 DD/ 13 CXR: Attestation: I personally reviewed and interpreted this imaging study as follows: Radiologist's impression: [address] [place] [address] XRay Report Signed Patient: Saman Orozco Unit #: [id number] : 1960 Age/Sex: 61 / M ADM Date: 05/25/21 Loc: ER Room/Bed: Attending Dr: Ordering Provider/Ordering MD: Jeimy Freire MD Date of Service: 05/25/21 Procedure(s): XR chest 1V portable [id number] Accession Number(s): [id number] Report Number: [id number] PROCEDURE INFORMATION: Exam: XR Chest Exam date and time: 05/25/2021 7:14 PM Age: 61 years old Clinical indication: Dyspnea; Additional info: Weakness TECHNIQUE: Imaging protocol: XR of the chest. Views: 1 view. COMPARISON: CR XR chest 1V portable [id number] 03/13/2021 12:17 PM FINDINGS: Tubes, catheters and devices: Right subclavian Port-A-Cath with the tip in the SVC, stable in position. Lungs: Clearing of left lingular and left lower lobe airspace disease. Residual scarring in the left lower lobe and left lingula. No focal consolidation. No pulmonary edema. Pleural spaces: No pleural effusion. No pneumothorax. Heart/Mediastinum: Stable mild enlargement of the cardiac silhouette. Mediastinal contours are unremarkable. Vasculature: Stable vascular calcifications in the aorta. Bones/joints: Degenerative changes in the spine and shoulders. Patient has had a previous fusion in the visualized cervical spine. XR/XR chest 1V portable [id number] IMPRESSION: 1. No acute cardiopulmonary process. 2. Incidental/nonacute findings are listed in the report. Radiation Dose CTDIVOL = (mGy): DLP = (mGy-cm) Dictated By: Alayna Avila MD Signed By: Alayna Avila MD Signed Date/Time: 05/25/212009 DD/ [address]: Attestation: I personally reviewed and interpreted this imaging study as follows: Radiologist's impression: [facility] [address] [place] [address] CT Scan Report Signed Patient: Saman Orozco Unit #: [id number] : 1960 Age/Sex: 61 / M ADM Date: 05/25/21 Loc: ER Room/Bed: Attending Dr: Ordering Provider/Ordering MD: Jeimy Freire MD Date of Service: 05/25/21 Procedure(s): CT neck w con* [id number] Accession Number(s): [id number] Report Number: [id number] PROCEDURE INFORMATION: Exam: CT Neck With Contrast Exam date and time: 05/25/2021 8:39 PM Age: 61 years old Clinical indication: Throat pain; Prior surgery; Surgery type: Neck TECHNIQUE: Imaging protocol: Computed tomography images of the neck with contrast. Sagittal and coronal reformatted images were created and reviewed. Radiation optimization: All CT scans at this facility use at least one of these dose optimization techniques: automated exposure control; mA and/or kV adjustment per patient size (includes targeted exams where dose is matched to clinical indication); or iterative reconstruction. Contrast material: OMNI 300; Contrast volume: 95 ml; Contrast route: INTRAVENOUS (IV); COMPARISON: 1. CT Cervical Spine wo* [id number] 12/06/2016 2:33 PM 2. MR head wo/w con [id number] 04/06/2021 10:22:25 AM RADIATION DOSE METRICS: Total DLP (mGy-cm): 441.13 FINDINGS: Brain: Mildly enhancing mass in the right cerebellar hemisphere measuring 0.5 x 1.2 x 1.1 cm, previously measured 1.1 x 1.8 x 1.5 cm on 04/06/2021 (series 602, image 69 and series 3, image 20). Mild cerebral edema around the mass is stable. Orbital cavity: Globes and lenses, extraocular muscles, and optic nerves are intact bilaterally. No acute intraorbital abnormality. Mastoid air cells: Small amount of fluid in the right and left mastoid air cells. Paranasal sinuses: Paranasal sinuses are clear. Nasopharynx: The nasopharynx is unremarkable. Oropharynx: The oropharynx is unrermarkable. No significant tonsillar enlargement. No tonsillar or peritonsillar abscess. Hypopharynx: Mild thickening of the hypopharyngeal soft tissues is stable dating back to 12/06/2016 and may be postsurgical in nature. Larynx: The larynx is unremarkable. The epiglottis is unremarkable. Retropharyngeal space: The retropharyngeal space is unrermarkable. Submandibular/Parotid glands: The right and left parotid glands are unremarkable. The right and left submandibular glands are unremarkable. Thyroid: The thyroid gland is unremarkable. Lymph nodes: No lymphadenopathy. Trachea: The trachea is midline and patent. Lungs: Moderate centrilobular and paraseptal emphysematous changes in the visualized lungs. Interstitial fibrotic changes in the visualized right lung. Visualized lungs are clear. Bones/joints: Multilevel degenerative changes of varying severity in the visualized spine. Changes consistent with anterior/posterior fusion and laminectomies at C4 through C7. Vasculature: Atherosclerotic changes in the visualized arteries. Cervical vessels are patent. Soft tissues: No soft tissue swelling. No radiopaque foreign body. CT/CT neck w con* [id number] IMPRESSION: 1. No acute abnormality of the cervical soft tissues. 2. Small amount of fluid in the right and left mastoid air cells. 3. Decrease in size of a metastatic focus in the right cerebellar hemisphere. 4. Incidental/nonacute findings are listed in the report. Radiation Dose CTDIVOL = (mGy): DLP = 441.13 (mGy-cm) Dictated By: Alayna Avila MD Signed By: Alayna Avila MD Signed Date/Time: 05/25/212116 DD/ 38 EKG Data^: EKG 1: Attestation: I personally reviewed and interpreted this EKG as follows: EKG interpretation date: 05/25/21 EKG interpretation time: 20:37 Interpretation: nsr hr [address] or t wave abnormalities qrs 91 qtc 419 Discharge Plan Discharge Patient Disposition: Home Clinical Impression: Vomiting, Weakness Condition: Stable Prescriptions: New ondansetron 4 mg tablet,disintegrating 4 mg PO Q6H PRN (Reason: nausea and vomiting) Qty: 14 RF: 0 No Action albuterol sulfate [ProAir HFA] 90 mcg/actuation HFA aerosol inhaler 2 puff INHALATION QID PRN (Reason: shortness of breath or wheezing) 30 Days Qty: 18 RF: 4 paroxetine HCl [Paxil] 40 mg tablet 40 mg PO DAILY Qty: 30 RF: 2 aripiprazole [Abilify] 30 mg tablet 30 mg PO DAILY Qty: 30 RF: 2 Bevespi Aerosphere 9-4.8 mcg HFA aerosol inhaler 2 puff inhalation BID 30 Days Qty: 10.7 RF: 3 ondansetron HCl 8 mg tablet 8 mg PO Q8H RF: 0 prochlorperazine maleate 10 mg tablet 10 mg PO Q6H PRNRF: 0 fluticasone propionate [Flonase Allergy Relief] 50 mcg/actuation spray,suspension 1 spray intranasal BID 30 Days Qty: 15.8 RF: 4 oxycodone 15 mg tablet 15 mg PO QID PRN (Reason: Pain) RF: 0 Celebrex 100 mg capsule 100 mg PO BID PRN (Reason: pain) Qty: 20 RF: 0 methocarbamol 750 mg tablet 750 mg PO Q8H PRN (Reason: back pain) Qty: 20 RF: 0 Xanax 1 mg Tablet 1 mg PO .1 HOUR PRIOR TO MRI PRN (Reason: Anxiety) RF: 0 lisinopril 20 mg Tablet 20 mg PO DAILY RF: 0 dexamethasone 4 mg Tablet 4 mg PO DAILY RF: 0 omeprazole 20 mg Capsule,Delayed Release(Dr/Ec) 20 mg PO DAILY RF: 0 Discharge Orders: Discharge ED (Routine); Ordered 05/25/21 Ordered By: Jeimy Freire Referrals: Hilton,Dodie, CLOTHING ROOM SUPERVISOR [Primary Care Provider] - 1-3 days Discharge Diet: Advance as tolerated Discharge Activity: Resume usual activity Patient Instructions: Acute Nausea and Vomiting (ED) Coding Level of Care Code ED Dial Lathe Operator for [facility] Fwd Exam Comprehensive
[2021-05-25 19:27] LABS: Basophils % 0.2 %; Eosinophils # 0.1 10^3/uL (0.0-0.8); Hematocrit 37.9 % (42.0-52.0); Hemoglobin 11.3 g/dL (11.7-16.6); Lymphocytes # 0.2 10^3/uL (0.8-4.8); Lymphocytes % 2.2 %; Mean Corpuscular HGB Conc 29.8 g/dL (30.0-36.0); Mean Corpuscular Hemoglobin 27.4 pg (28.0-34.0); Mean Corpuscular Volume 91.8 fl (80-94); Mean Platelet Volume 9.5 fL (7.4-10.4); Monocytes # 0.6 10^3/uL (0.2-0.9); Monocytes % 5.9 %; Neutrophils # 9.69 10^3/uL (1.8-7.7); Neutrophils % 90.5 %; Nucleated Red Blood Cells % 0 %; Platelet Count 342 10^3/cmm (130-400); Red Blood Count 4.13 10^6/uL (4.1-5.3); Red Cell Distribution Width 17.4 % (12.1-15.1); White Blood Count 10.7 10^3/uL (4.0-10.0)
[2021-05-25 19:43] LABS: Alanine Aminotransferase 14 U/L (0-41); Albumin Level 4.1 g/dL (3.5-5.2); Alkaline Phosphatase 79 IU/L (40-130); Anion Gap 14.7 (5-19); Aspartate Amino Transferase 15 U/L (0-40); Blood Urea Nitrogen 14 mg/dL (8-23); Calcium 9.6 mg/dL (8.5-10.5); Carbon Dioxide 26 mmol/L (22-29); Chloride 98 mmol/L (98-107); Globulin 3.8 g/dL (1.3-4.6); Glomerular Filtration Rate 113.9 mL/min (90-130); Glucose 93 mg/dL (65-115); Magnesium 2.1 mg/dL (1.7-2.3); Osmolality Calculated 280 mOsm/kg (285-295); Potassium 3.7 mmol/L (3.5-5.1); Sodium 135 mmol/L (136-145); Total Bilirubin 0.4 mg/dL (0.15-1.2); Total Protein 7.9 g/dL (6.6-8.7)
[2021-05-25 20:11] VITALS: RESP 18; O2SAT 98
[2021-05-25] MEDS: ondansetron 2 mg/ML SDV 2 mL 4 MG IVP (20:11)
[2021-05-25] MEDS: sodium chloride 0.9% 1,000 ML 999 ML IV (20:11)
[2021-05-25] MEDS: morphine 4 mg/mL SDV 1 mL IVP ×2 (20:11→22:41)
--- NOTE | 2021-05-25 20:39 | CTR_ITS ---
PROCEDURE INFORMATION: Exam: CT Neck With Contrast Exam date and time: 05/25/2021 8:39 PM Age: 61 years old Clinical indication: Throat pain; Prior surgery; Surgery type: Neck TECHNIQUE: Imaging protocol: Computed tomography images of the neck with contrast. Sagittal and coronal reformatted images were created and reviewed. Radiation optimization: All CT scans at this facility use at least one of these dose optimization techniques: automated exposure control; mA and/or kV adjustment per patient size (includes targeted exams where dose is matched to clinical indication); or iterative reconstruction. Contrast material: OMNI 300; Contrast volume: 95 ml; Contrast route: INTRAVENOUS (IV); COMPARISON: 1. CT Cervical Spine wo* [id number] 12/06/2016 2:33 PM 2. MR head wo/w con [id number] 04/06/2021 10:22:25 AM RADIATION DOSE METRICS: Total DLP (mGy-cm): 441.13 FINDINGS: Brain: Mildly enhancing mass in the right cerebellar hemisphere measuring 0.5 x 1.2 x 1.1 cm, previously measured 1.1 x 1.8 x 1.5 cm on 04/06/2021 (series 602, image 69 and series 3, image 20). Mild cerebral edema around the mass is stable. Orbital cavity: Globes and lenses, extraocular muscles, and optic nerves are intact bilaterally. No acute intraorbital abnormality. Mastoid air cells: Small amount of fluid in the right and left mastoid air cells. Paranasal sinuses: Paranasal sinuses are clear. Nasopharynx: The nasopharynx is unremarkable. Oropharynx: The oropharynx is unrermarkable. No significant tonsillar enlargement. No tonsillar or peritonsillar abscess. Hypopharynx: Mild thickening of the hypopharyngeal soft tissues is stable dating back to 12/06/2016 and may be postsurgical in nature. Larynx: The larynx is unremarkable. The epiglottis is unremarkable. Retropharyngeal space: The retropharyngeal space is unrermarkable. Submandibular/Parotid glands: The right and left parotid glands are unremarkable. The right and left submandibular glands are unremarkable. Thyroid: The thyroid gland is unremarkable. Lymph nodes: No lymphadenopathy. Trachea: The trachea is midline and patent. Lungs: Moderate centrilobular and paraseptal emphysematous changes in the visualized lungs. Interstitial fibrotic changes in the visualized right lung. Visualized lungs are clear. Bones/joints: Multilevel degenerative changes of varying severity in the visualized spine. Changes consistent with anterior/posterior fusion and laminectomies at C4 through C7. Vasculature: Atherosclerotic changes in the visualized arteries. Cervical vessels are patent. Soft tissues: No soft tissue swelling. No radiopaque foreign body. CT/CT neck w con* [id number] IMPRESSION: 1. No acute abnormality of the cervical soft tissues. 2. Small amount of fluid in the right and left mastoid air cells. 3. Decrease in size of a metastatic focus in the right cerebellar hemisphere. 4. Incidental/nonacute findings are listed in the report. Radiation Dose CTDIVOL = (mGy): DLP = 441.13 (mGy-cm)
[2021-05-25 20:46] VITALS: RESP 22
[2021-05-25] MEDS: HYDROmorphone 1 mg/mL INJ 1 mL IVP (20:46)
[2021-05-25] MEDS: iohexol 300 mg/mL 100 mL Btl IV (20:51)
[2021-05-25 21:12] LABS: Troponin(5th) Baseline 43 ng/L (0-15)
[2021-05-25 22:15] LABS: Troponin 5 2HR 35.62 ng/L (0-15)
[2021-05-25 22:16] LABS: Troponin 5 2HR Delta -7.38 ABS# (0-10)
[2021-05-25 22:18] VITALS: BP 126/78; PULSE 89; RESP 20; O2SAT 97
[2021-05-25 23:00] VITALS: BP 126/78; PULSE 89; RESP 22; O2SAT 97
[2021-05-25 23:00] LABS: Add Urine Microscopic? YES; Bilirubin Urine Neg (Negative); Blood Urine 3+ (Negative); Glucose Urine UA Norm (Normal); Ketones Urine Negative (Negative); Leukocyte Esterase Urine Negative (Negative); Nitrate Urine Negative (Negative); Protein Urine Neg (Negative); Urine Appearance Clear (CLEAR); Urine Color Yellow (Yellow); Urobilinogen Urine Norm (Negative); pH Urine 5 (5-7)
[2021-05-25 23:02] LABS: RBC Urine 0-4 /hpf (0-2); Squamous Epithelial Cell Urine RARE /hpf (0-5)
[2021-05-25 23:03] LABS: Add Urine Culture? No; Calcium Oxalate Crystals Urine 0-4 /hpf
== END 2021-05-25 22:50 | disposition home or self-care (01) ==
PROVIDERS: Emergency Provider Emergency Medicine; PCP Nurse Practitioner Family
DX: R11.10 Vomiting, unspecified (principal); R53.1 Weakness; M54.2 Cervicalgia; Z91.81 History of falling; Z79.891 Long term (current) use of opiate analgesic; Z87.891 Personal history of nicotine dependence; C34.90 Malignant neoplasm of unspecified part of unspecified bronchus or lung; F33.8 Other recurrent depressive disorders; F43.12 Post-traumatic stress disorder, chronic
CPT/HCPCS: 70450; 70491; 71045; 80053; 81001; 83735; 84484; 85025; 96361; 96374; 96375; 96376; 99284; J1170; J2270; J2405; J7030; Q9967

== ENCOUNTER 2021-06-02 12:49 | Emergency (ER) | payer MEDICAID, SELFPAY ==
[2021-04-28 15:59] VITALS: BMI 24.3
--- NOTE | 2021-06-02 12:51 | CT_ITS ---
WS: [id number] CT HEAD NONCONTRAST HISTORY: headache, fall, cancer TECHNIQUE: Contiguous axial imaging performed through the brain in 2.5 mm imaging. Bone and soft tiss ue windows. Sagittal and coronal reformats reviewed. All CT scans at [facility] [place] use at least one of these dose optimization techniques: automated exposure control; mA and/or kV adjustment per pa tient size (includes targeted exams where dose is matched to clinical indication); or iterative recon struction. DLP: 897.65 mGy.cm COMPARISON: 05/25/2021 No new or acute areas of hemorrhage. Previously described hemorrhagic versus calcific RIGHT cerebella r mass has decreased in size now measuring 7 mm at its maximum. There is an additional 3 mm calcific or hemorrhagic focus in the superior RIGHT cerebellum which was on the prior study also. No new areas of hemorrhage or sulcal effacement. Mild atrophy and mild chronic microvascular ischemic disease. Ventricles: Normal size with no hydrocephalus. Paranasal sinuses: As visualized are clear. Mastoid air cells: Well pneumatized. Calvarium and scalp: Skull is intact with no soft tissue edema or swelling. CT/CT head wo con* [id number] IMPRESSION: 1. No acute intracranial hemorrhage or edema. 2. Decrease in size of the recently described RIGHT cerebellar metastatic lesi on. Smaller superior RIGHT cerebellar hemorrhagic versus calcific focus is unch anged.
--- NOTE | 2021-06-02 12:51 | CT_ITS ---
WS: [id number] CT CERVICAL SPINE HISTORY: neck pain, fall TECHNIQUE: Contiguous 2.5 mm axial imaging performed through the entire cervical spine. Sagittal and coronal reformats also performed. All CT scans at [facility] use at least one of these dose o ptimization techniques: automated exposure control; mA and/or kV adjustment per patient size (include s targeted exams where dose is matched to clinical indication); or iterative reconstruction. DLP: 399.4 mGy.cm COMPARISON: 05/25/2021 and 12/06/2016 Posterior cervical alignment is normal. Anterior cervical fusion begins at C4-C7. Anterior cervical p late and screws are intact. There are additional vertical rods posteriorly and pedicle screws at all levels except on the RIGHT at C5. There is ankylosis along the fusion. Large laminectomy defects note d posteriorly from C4 to C7. No acute fractures. Lateral masses of C1 and C2 are aligned. Odontoid is intact. Mild RIGHT foraminal narrowing at C2-3 and bilaterally at C3-4. Osteophytic ridging from C4-5 to C6-7 resulting in mild to moderate foraminal stenosis. CT/CT cervical spin wo con* [id number] IMPRESSION: 1. No acute cervical spine fracture. 2. Extensive fusion hardware, anterior and posterior from C4 through C7. Large posterior laminectomy defects from C4 to C7. 3. No metastatic lesions within the cervical spine.
[2021-06-02 12:59] VITALS: BP 145/107; PULSE 118; RESP 22; TEMP 36.5; O2SAT 100; BMI 23.3
--- NOTE | 2021-06-02 13:08 | XRR_ITS ---
PROCEDURE INFORMATION: Exam: XR Chest Exam date and time: 06/02/2021 1:08 PM Age: 61 years old Clinical indication: Patient HX: Dyspnea. HX of brain cancer; Additional info: Dyspnea/cough TECHNIQUE: Imaging protocol: XR of the chest. Views: 1 view. COMPARISON: CR (CHEST, ) 05/25/2021 7:23 PM FINDINGS: Tubes, catheters and devices: Right central line is in the SVC Lungs: Unremarkable. No consolidation. Parenchymal densities seen in the left lower lobe on prior examination are no longer visible . Pleural spaces: Unremarkable. No pleural effusion. No pneumothorax. Heart/Mediastinum: Unremarkable. No cardiomegaly. Bones/joints: Metallic surgical hardware is seen in the cervical spine XR/XR chest 1V portable [id number] IMPRESSION: 1. No acute findings. 2. Right central line is in the SVC. 3. Metallic surgical hardware in the cervical spine. 4. Previously seen parenchymal density in the left lower lobe has resolved Radiation Dose CTDIVOL = (mGy): DLP = (mGy-cm)
--- NOTE | 2021-06-02 13:08 | ECG_ITS ---
[facility] Test Date: 2021-06-02 Pat Name: Saman Orozco Department: Room: Gender: Male Pie Topper: : 1960 Requested By: Soren Cheung Order Number: [id number] Harrison MD: Helene Altman M.D. Measurements Intervals [place] Rate: 124 P: 99 MI: 157 QRS: -40 QRSD: 83 T: 96 QT: 308 QTc: 443 Interpretive Statements SINUS TACHYCARDIA LEFT AXIS DEVIATION [QRS AXIS < -30] NONSPECIFIC ST & T-WAVE ABNORMALITY Compared to ECG 03/13/2021 14:14:27 Left-axis deviation now present T-wave abnormality now present Myocardial infarct finding no longer present Electronically Signed On 06-03-2021 7:30:31 PEDIATRIC PHYSICIAN ASSISTANT by Helene Altman M.D. [id number]
--- NOTE | 2021-06-02 13:18 | W.ED.FALL ---
HPI - Fall General: Chief Complaint: Fall Stated Complaint: FALL/ HIGH BP/ HIGH HR Time Seen by Provider: 06/02/21 12:51 History of Present Illness: HPI Narrative: 61-year-old male with a known history of lung CA with brain metastasis. He is currently on dexamethasone he has been getting palliative radiation therapy. Reports today of a fall no loss consciousness and increasing falls recently. She complained of pain in his head neck and lower back. He has noticed increasing weakness in his left leg with difficulty with falls and with ambulation. MD complaint: fall Onset (ago): hour(s) Fall from: down stairs (#) Fall witnessed: yes, by family Place fall occurred: home Loss of consciousness: None Prolonged down time: no Location of injury: head, neck and back Associated symptoms-after fall: Reports difficulty walking, neck pain, short of breath and weakness; Denies abdominal pain, chest pain, confusion, headache(s), hematuria, lightheadedness, numbness or vertigo Review of Systems Const: Denies: fever(s), chills, body aches, change in appetite, fatigue or malaise ENMT: Denies: throat pain, ear or mastoid pain, nasal discharge or nasal congestion Card: Denies: chest pain or lightheadedness Resp: Denies: dyspnea, productive cough or non-productive cough GI: Denies: abdominal pain : Denies: hematuria Musc: Reports: neck pain Skin/Breast: Denies: rash or pruritus Neuro: Reports: difficulty walking; Denies: headache(s), vertigo or confusion PFSH ED PFSH: Medical History Major depressive disorder, recurrent severe without psychotic features Port-A-Cath in place (04/09/20) right subclavian Post-traumatic stress disorder, chronic Psychiatric care Small cell lung cancer Surgical History H/O neck surgery History of bronchoscopy Hx of tonsillectomy Family History Father Hypertension Diabetes Mother Cancer Social History Quit status (tobacco): has quit using tobacco Year quit tobacco: [id number] Second hand smoke exposure: Yes Smoking risk assessment/counseling performed?: Yes Tobacco counseling given: counseling >3 minutes Alcohol intake: former Desire information about substance/drug rehabilitation?: No Adopted: No Caregiver/support person: No Lives independently: Yes Household members: significant other Housing: Manufactured/Mobile home Marital status: Marital status details: 19 years with current partner Number of children: 2 Number of grandchildren: 8 Highest education level completed: 7th Grade service: No Current occupational status: retired and disabled Current occupational exposures/hazards: No Pets and animals: Yes (2 indoor dogs) Pets & animals: dog(s) History of recent travel: No Leisure activites: other Leisure activities details: watch TV Sexually active: Yes Current gender identity: Male Kandi/Confucianist: None Special kandi needs: No Agree to transfusion: Yes Financial difficulty paying for basics: Somewhat Hard Physical Exam Const: COMMON NORMALS: no acute distress GENERAL APPEARANCE: cooperative ORIENTATION/CONSCIOUSNESS: Yes awake HENMT: COMMON NORMALS: normocephalic, atraumatic and hearing grossly normal bilaterally HEAD & SCALP: normocephalic and atraumatic Neck/C-Spine: COMMON NORMALS: no JVD Resp: COMMON NORMALS: normal respiratory effort, No retractions, No use of accessory muscles and clear to auscultation bilaterally AUSCULTATION: clear to auscultation bilaterally Cardio: COMMON NORMALS: no JVD, regular rate, regular rhythm and No murmurs present (Cardio) RATE: regular rate RHYTHM: regular rhythm GI: COMMON NORMALS: Soft to palpation and No hepatosplenomegaly present AUSCULTATION: Yes normoactive bowel sounds PALPATION: Yes Soft to palpation, No Tenderness to palpation present (GI), No Guarding due to palpation present (GI) and Yes No hepatosplenomegaly present Extremity: COMMON NORMALS: normal to inspection, capillary refill normal, no clubbing, cyanosis or edema, no calf tenderness and no pedal edema Skin: COMMON NORMALS: no rashes or lesions noted GENERAL SKIN EXAM: no rashes or lesions noted Course Vital Signs: Vital signs: Vital Signs Temperature 97.7 F 06/02/21 12:59 Pulse Rate 110 H 06/02/21 16:37 Respiratory Rate 18 06/02/21 16:37 Blood Pressure 151/96 06/02/21 16:37 Pulse Oximetry 100 06/02/21 16:37 MDM - Fall MDM Narrative: Medical decision making narrative: Labs and imaging reviewed with the patient. CT of the head negative. Blood pressure is significantly elevated. Discussed observation of the patient he would prefer to go home. Will discharge home with amlodipine given hydrocodone 7.525 1 p.o. every 6 hours as needed follow-up with oncology. Patient was started on dexamethasone yesterday continue this as well. Lab Data: Labs: Lab Results 06/02/21 06/02/21 12:27 12:27 WBC 14.4 10^3/uL H 10 ^3/uL (4.0-10.0) RBC 5.18 10^6/uL 10^6 /uL (4.1-5.3) Hgb 14.0 g/dL g/dL (11.7-16.6) Hct 45.9 % % (42.0-52.0) MCV 88.6 fl fl (80-94) MCH 27.0 pg L pg (28.0-34.0) MCHC 30.5 g/dL g/dL (30.0-36.0) RDW 17.1 % H % (12.1-15.1) Plt Count 568 10^3/cmm H 10 ^3/cmm (130-400) MPV 9.3 fL fL (7.4-10.4) Neut % (Auto) 88.6 % % Lymph % (Auto) 4.2 % % [place] % (Auto) 6.3 % % Eos % (Auto) 0.0 % % Baso % (Auto) 0.1 % % Neut # (Auto) 12.73 10^3/uL H 1 0^3/uL (1.8-7.7) Lymph # (Auto) 0.6 10^3/uL L 10^ 3/uL (0.8-4.8) [place] # (Auto) 0.9 10^3/uL 10^3/ uL (0.2-0.9) Eos # (Auto) 0.0 10^3/uL 10^3/ uL (0.0-0.8) Baso # (Auto) 0.0 10^3/uL 10^3/ uL (0.0-0.1) Nucleated RBC % (a uto) 0 % % Nucleated RBCs # 0.0 /100WBC /100W BC Sodium 134 mmol/L L mmol /L (136-145) Potassium 3.8 mmol/L mmol/L (3.5-5.1) Chloride 93 mmol/L L mmol/ L (98-107) Carbon Dioxide 26 mmol/L mmol/L (22-29) Anion Gap 18.8 (5-19) BUN 21 mg/dL mg/dL (8-23) Creatinine 0.6 mg/dL L mg/dL (0.7-1.2) GFR Calculation 136.1 mL/min H mL /min (90-130) Glucose 116 mg/dL H mg/dL (65-115) Calculated Osmolal ity 282 mOsm/kg L mOs m/kg (285-295) Calcium 10.0 mg/dL mg/dL (8.5-10.5) Total Bilirubin 0.4 mg/dL mg/dL (0.15-1.2) AST 15 U/L U/L (0-40) ALT 23 U/L U/L (0-41) Alkaline Phosphata se 61 IU/L IU/L (40-130) Total Protein 8.2 g/dL g/dL (6.6-8.7) Albumin 4.2 g/dL g/dL (3.5-5.2) Globulin 4.0 g/dL g/dL (1.3-4.6) Discharge Plan Discharge Patient Disposition: Home Clinical Impression: Small cell lung cancer, Benign essential HTN, Brain metastases Condition: Stable Prescriptions: New amlodipine 5 mg tablet 5 mg PO DAILY Qty: 14 RF: 0 hydrocodone-acetaminophen 7.5-325 mg tablet 1 tab PO Q6H PRN (Reason: pain) Qty: 10 RF: 0 No Action albuterol sulfate [ProAir HFA] 90 mcg/actuation HFA aerosol inhaler 2 puff INHALATION QID PRN (Reason: shortness of breath or wheezing) 30 Days Qty: 18 RF: 4 prochlorperazine maleate 10 mg tablet 10 mg PO Q6H PRN (Reason: Nausea And Vomiting) RF: 0 oxycodone 15 mg tablet 15 mg PO QID PRN (Reason: Pain) RF: 0 celecoxib [Celebrex] 100 mg capsule 100 mg PO BID PRN (Reason: pain) Qty: 20 RF: 0 methocarbamol 750 mg tablet 750 mg PO Q8H PRN (Reason: back pain) Qty: 20 RF: 0 ondansetron 4 mg tablet,disintegrating 4 mg PO Q6H PRN (Reason: nausea and vomiting) Qty: 14 RF: 0 Paxil 40 mg tablet 40 mg PO QAM RF: 0 Flonase Allergy Relief 50 mcg/actuation spray,suspension 1 spray intranasal BID PRN (Reason: Allergy Symptoms) RF: 0 Abilify 30 mg tablet 30 mg PO QAM RF: 0 Zyrtec 10 mg Tablet 10 mg PO DAILY PRN (Reason: Allergy Symptoms) RF: 0 lisinopril 20 mg Tablet 20 mg PO DAILY RF: 0 dexamethasone 4 mg Tablet 4 mg PO BID RF: 0 omeprazole 20 mg Capsule,Delayed Release(Dr/Ec) 20 mg PO DAILY PRN (Reason: Acid Reflux) RF: 0 Discharge Orders: Discharge ED (Routine); Ordered 06/02/21 Ordered By: Soren Rendon Referrals: Dodie Hilton FNP [Primary Care Provider] - Discharge Diet: Usual diet Discharge Activity: Resume usual activity Patient Instructions: Opioid Safety Activity Restrictions/Additional Instructions: Follow-up with your oncologist within the next few days. Coding Level of Care Code ED Vp Of Customer Experience Strategy for [employer]rice[employer] Fwd Exam Comprehensive
--- NOTE | 2021-06-02 13:26 | CT_ITS ---
WS: [id number] CT LUMBAR SPINE, noncontrast. HISTORY: fall pain - lung CA with mets TECHNIQUE: Contiguous 2.5 mm axial imaging are performed. Sagittal and coronal reformats are submitte d and reviewed. All CT scans at [facility] use at least one of these dose optimization techni ques: automated exposure control; mA and/or kV adjustment per patient size (includes targeted exams w here dose is matched to clinical indication); or iterative reconstruction. IV contrast: None DLP: 1173.13 mGy.cm COMPARISON: None available. Posterior lumbar alignment is normal. Moderate to severe narrowing of the disc spaces throughout the lumbar spine. There are a few subchondral cystic changes most significant at L2, L3 and L4 which were present on the prior study. No evidence for metastatic disease to the spine. Severe facet joint arth ritis at L4-5 and L5-S1. No acute fractures. Visualized sacrum is normal. Diffuse disc bulging throughout the lumbar spine and osteophytic ridging. There is encroachment upon the ventral thecal sac and subarticular recesses beginning at the L2-3 level. No high-grade central s tenosis. Moderate bilateral foraminal stenosis L4-5 and L5-S1, slightly greater on the LEFT than the RIGHT. Atherosclerotic changes within the visualized abdominal aorta. CT/CT lumbar spine wo con* [id number] IMPRESSION: 1. No acute lumbar spine fracture. 2. Moderate to severe lumbar spondylosis. Most significant stenosis is moderat e at L4-5 and L5-S1 and greatest on the LEFT.
--- NOTE | 2021-06-02 13:26 | CT_ITS ---
WS: [id number] CT THORACIC SPINE HISTORY: fall with back pain - lung CA w mets TECHNIQUE: Contiguous 2.5 mm axial images are reviewed to thoracic spine. Images are reformatted in s agittal and coronal planes. All CT scans at [facility] use at least one of these dose optimiz ation techniques: automated exposure control; mA and/or kV adjustment per patient size (includes targ eted exams where dose is matched to clinical indication); or iterative reconstruction. DLP: 1237.73 mGy.cm COMPARISON: None available. Mild increase in the lumbar lordosis. Advanced degenerative disc space narrowing and osteophytosis. N o osteoblastic or osteolytic lesions. Extensive large laminectomy defects in the lower cervical spine. No acute thoracic spine fractures id entified. No high-grade central or foraminal stenosis. Facet joint osteophytes encroach into the post erior lateral thecal sac beginning near T7-8. No acute-appearing disc protrusions. Paravertebral soft tissues are negative for acute process. Emphysematous changes in the visualized lungs. Moderate athe rosclerosis of the thoracic aorta. CT/CT thoracic spin wo con* [id number] IMPRESSION: 1. No acute thoracic spine fractures. 2. No high-grade central or foraminal stenosis.
[2021-06-02 13:33] LABS: Basophils % 0.1 %; Hematocrit 45.9 % (42.0-52.0); Lymphocytes # 0.6 10^3/uL (0.8-4.8); Lymphocytes % 4.2 %; Mean Corpuscular HGB Conc 30.5 g/dL (30.0-36.0); Mean Corpuscular Volume 88.6 fl (80-94); Mean Platelet Volume 9.3 fL (7.4-10.4); Monocytes # 0.9 10^3/uL (0.2-0.9); Monocytes % 6.3 %; Neutrophils # 12.73 10^3/uL (1.8-7.7); Neutrophils % 88.6 %; Nucleated Red Blood Cells % 0 %; Platelet Count 568 10^3/cmm (130-400); Red Blood Count 5.18 10^6/uL (4.1-5.3); Red Cell Distribution Width 17.1 % (12.1-15.1); White Blood Count 14.4 10^3/uL (4.0-10.0)
[2021-06-02 13:50] LABS: Alanine Aminotransferase 23 U/L (0-41); Albumin Level 4.2 g/dL (3.5-5.2); Alkaline Phosphatase 61 IU/L (40-130); Anion Gap 18.8 (5-19); Aspartate Amino Transferase 15 U/L (0-40); Blood Urea Nitrogen 21 mg/dL (8-23); Carbon Dioxide 26 mmol/L (22-29); Chloride 93 mmol/L (98-107); Creatinine Clr Calc Pharmacy 115.1228; Glomerular Filtration Rate 136.1 mL/min (90-130); Glucose 116 mg/dL (65-115); Osmolality Calculated 282 mOsm/kg (285-295); Potassium 3.8 mmol/L (3.5-5.1); Sodium 134 mmol/L (136-145); Total Bilirubin 0.4 mg/dL (0.15-1.2); Total Protein 8.2 g/dL (6.6-8.7)
[2021-06-02 14:13] VITALS: BP 148/96; PULSE 117; O2SAT 97
[2021-06-02] MEDS: sodium chloride 0.9% 1,000 ML 999 ML IV (15:10)
[2021-06-02] MEDS: amlodipine 5 mg Tablet PO (15:10)
[2021-06-02 15:45] VITALS: BP 146/117; O2SAT 93
[2021-06-02 15:56] VITALS: BP 146/117; PULSE 122; RESP 18; O2SAT 100
--- NOTE | 2021-06-02 16:03 | PC.NURSE ---
REACCESSING PT, PT ONLY KNEW HIS NAME AND . WHEN ASKED WHAT YEAR IT WAS, HE STATED 2001 . DID NOT KNOW MONTH OR WHERE HE WAS AT.
[2021-06-02 16:37] VITALS: BP 151/96; PULSE 110; RESP 18; O2SAT 100
== END 2021-06-02 18:05 | disposition home or self-care (01) ==
PROVIDERS: Emergency Provider Family Medicine; PCP Nurse Practitioner Family
DX: C80.1 Malignant (primary) neoplasm, unspecified (principal); C79.31 Secondary malignant neoplasm of brain; I10 Essential (primary) hypertension; Z79.891 Long term (current) use of opiate analgesic; F43.12 Post-traumatic stress disorder, chronic; Z91.81 History of falling; Z87.891 Personal history of nicotine dependence
CPT/HCPCS: 70450; 71045; 72125; 72128; 72131; 80053; 85025; 93005; 96360; 99283; J7030